=== PATIENT | female | born 1980 | race Caucasian/White ===

== ENCOUNTER 2023-07-05 07:16 | Outpatient (OUT) | payer OTHER, SELFPAY ==
--- NOTE | 2023-07-05 07:27 | MM_ITS ---
Patient Name: JULIAN WELLINGTON MR#: [id number] : 1980 Exam Date: 07/05/2023 Ordering Doctor: DR RAEANN CHOUDHURY RADIOLOGY REPORT PROCEDURE: MM TOMOSYNTHESIS SCREENING BI COMPARISON: MG MAMM DX 3D RT CAD, 06/10/2022. MG MAMM RT DIAG FU, 09/09/2021. MG MAMM SCREEN 3D BETTE CAD, 08/22/2021. MG MAMM SCREEN BETTE W CAD, 02/07/2014. INDICATIONS: Screening Calculator Name NCI Breast Cancer Risk Assessment Tool 5 Year Breast Cancer Risk 0.60% Lifetime Breast Cancer Risk 8.00% Personal Breast Cancer No Personal Ovarian Cancer No Treatments None Family Cancers Grandmother-paternal with breast cancer at age ~66; Grandfather-paternal with stomach cancer at age ~80; Grandmother-maternal with spine cancer at age ~72. LOCATION: [facility] BREAST COMPOSITION: Heterogeneously dense,which may obscure small masses. FINDINGS: DIAGNOSTIC CATEGORY 2--BENIGN FINDING: RIGHT BREAST: No significant suspicious finding. Scattered benign-appearing lymph nodes are present. No significant change has occurred. LEFT BREAST: No significant suspicious finding. Scattered benign-appearing lymph nodes are present. No significant change has occurred. RECOMMENDATIONS: ROUTINE MAMMOGRAM AND CLINICAL EVALUATION IN 12 MONTHS. PLEASE NOTE: A NORMAL MAMMOGRAM DOES NOT EXCLUDE THE POSSIBILITY OF BREAST CANCER. A CLINICALLY SUSPICIOUS PALPABLE LUMP SHOULD BE BIOPSIED. Dictated by: Anders Todd M.D. on 07/07/2023 at 10:49 Approved by: Anders Todd M.D. on 07/07/2023 at 14:48
== END 2023-07-05 07:17 | disposition home or self-care (01) ==
LOC: MAMMO 07:19
PROVIDERS: PCP Family Medicine; Visit Provider Family Medicine
DX: Z12.31 Encounter for screening mammogram for malignant neoplasm of breast (principal); Z80.3 Family history of malignant neoplasm of breast; Z80.0 Family history of malignant neoplasm of digestive organs; Z80.8 Family history of malignant neoplasm of other organs or systems
CPT/HCPCS: 77063; 77067

== ENCOUNTER 2024-07-27 16:20 | Outpatient (OUT) | payer OTHER, SELFPAY ==
--- NOTE | 2024-07-27 | MM_ITS ---
Patient Name: JULIAN CONTRERAS MR#: [id number] : 1980 Exam Date: 07/27/2024 Ordering Doctor: DR. TOÑO CHOUDHURY M.D. RADIOLOGY REPORT PROCEDURE: MM TOMOSYNTHESIS SCREENING BI COMPARISON: MM TOMOSYNTHESIS SCREENING BI, 07/05/2023. MG MAMM DX 3D RT CAD, 06/10/2022. INDICATIONS: screening Calculator Name NCI Breast Cancer Risk Assessment Tool 5 Year Breast Cancer Risk 0.70% Lifetime Breast Cancer Risk 7.90% Personal Breast Cancer No Personal Ovarian Cancer No Treatments None Family Cancers Grandmother-paternal with breast cancer at age ~66; Grandfather-paternal with stomach cancer at age ~80; Grandmother-maternal with spine cancer at age ~72. LOCATION: [facility] [place] BREAST COMPOSITION: The breasts are heterogeneously dense,which may obscure small masses. FINDINGS: DIAGNOSTIC CATEGORY 0--INCOMPLETE: NEED ADDITIONAL IMAGING EVALUATION. RIGHT BREAST: No significant suspicious finding. LEFT BREAST: Asymmetry superior aspect of the left breast, middle depth on the MLO view only. RECOMMENDATIONS: ADDITIONAL MAMMOGRAPHIC VIEWS REQUIRED: LEFT BREAST - spot-compression/true lateral views, possible ultrasound recommended. PLEASE NOTE: A NORMAL MAMMOGRAM DOES NOT EXCLUDE THE POSSIBILITY OF BREAST CANCER. A CLINICALLY SUSPICIOUS PALPABLE LUMP SHOULD BE BIOPSIED. Dictated by: Ankit Reyes DO on 07/28/2024 at 10:41 Approved by: Ankit Reyes DO on 07/28/2024 at 10:45
--- OUTSIDE RECORDS SUMMARY | 2024-07-27 16:24 | XMS_ITS | CCD ---
Author Organization [facility] Inform ion [facility] Care Team Providers Care Life Insurance Specialist Name Role Phone Josue Andrews Primary Care Provider [phone] JUAN, DR LOVETT Admitting [facility] KARASIK, DR LOVETT Attending Unavailable KARASIK, DR LOVETT Consulting Unavailable WEST, DR BROOKE Dennis Consulting Unavailable [facility] Unavailable KARASIK, DR LOVETT Admitting Unavailable KARASIK, DR LOVETT Attending Unavailable KARASIK, DR LOVETT Consulting Unavailable HEATHERYale [facility] Unavailable KARASIK, DR LOVETT Admitting Unavailable KARASIK, DR LOVETT Attending Unavailable KARASIK, DR LOVETT Consulting Unavailable WEST, DR BROOKE Dennis Consulting Unavailable HEATHERYale [facility] Unavailable KARASIK, DR LOVETT Admitting Unavailable KARASIK, DR LOVETT Attending Unavailable KARASIK, DR LOVETT Consulting Unavailable HEATHERYale [facility] Unavailable KARASIK, DR LOVETT Admitting Unavailable KARASIK, DR LOVETT Attending Unavailable KARASIK, DR LOVETT Consulting Unavailable ZIEBER, DR ANAHI Mcallister Consulting Unavailable Kenya Cordova Unavailable DO Teto Pandey Primary Care Provider Lindy [facility] Jacnita Saleh Emergency Provider Norma Pandey MD Primary Care Provider NORMA PANDEY Primary Care Unavailable ANAHI MICHEL Attending Unavailable ANAHI MICHEL Admitting Unavailable ANAHI MICHEL Attending Unavailable NORMA PANDEY Primary Care Unavailable NORMA PANDEY Primary Care Unavailable ANAHI MICHEL Attending Unavailable NORMA PANDEY Primary Care Unavailable Norma Pandey Attending Unavailable Katherin, Norma Bermudez Admitting Unavailable Dre Pearce Attending Unavailable Dre Pearce. Attending Unavailable Katherin, Norma Bermudez Admitting Unavailable Katherin, Norma Bermudez Attending Unavailable Katherin Norma KEANE Unavailable [phone] Norma Pandey MD Primary Care Provider Unavailable Primary Care Provider Unavailabl e Bullimore, Jacinta E Attending Unavailable Bullimore, Jacinta E Admitting Unavailable Katherin, Teto M. Primary Care Unavailable Rice, Jessica L Admitting Unavailable Katherin, Teto M. Primary Care Unavailable Rice Jessica L Attending Unavailable KATHERIN, NORMA Bermudez Attending Unavailable KATHERIN, NORMA Bermudez Attending Unavailable KATHERIN, NORMA Bermudez Attending Unavailable KATHERIN, NORMA Bermudez Attending Unavailable KATHERIN, NORMA Bermudez Attending Unavailable KATHERIN, NORMA Bermudez Attending Unavailable KATHERIN, NORMA Bermudez Attending Unavailable KATHERIN, NORMA Bermudez Attending Unavailable KATHERIN, NORMA Bermudez Attending Unavailable Allergies Allergy Classification Reported Allergen(s) Allergy Type Date of Onset Reaction(s) Facility (1 source) Sulfonamides (Antibiotic) Propensity to adverse reactions to drug 0 [facility] (1 source) Sulfonamides (Antibiotic) Drug allergy (disorder) [facility] (5 sources) Sulfur/Sulfade Propensity to adverse reactions [employer] Other (20 sources) Sulfonamides (Antibiotic); Translations: [SULFA (SULFONAMIDE ANTIBIOTICS)] Drug Allergy 9 [facility] (1 source) Sulfonamides (Antibiotic); Translations: [sulfa drugs] Propensity to adverse reactions (disorder) [facility] (1 source) Sulfonamides (Antibiotic) Drug allergy (disorder) 4 [facility] Medications Current Medications Medication Drug Class(es) Dates Sig (Normalized) Sig (Original) acetaminophen 325 mg / oxyCODONE hydrochloride 5 mg oral tablet (2 sources) Opioid Agonist Start: 08-30-2023 End: 09-06-2023 take 1 tablet by mouth every six hours as needed for pain oxyCODONE-acetam inophen (PERCOCET) 5-325 mg tablet Indications: Gallstones Take 1 tablet by mouth every 6 hours as needed for pain for up to 7 days. 15 tablet 0 08/30/2023 09/06/2023 Active Comment on above: Take 1 tablet by agustin th every 6 hours as needed for pain for up to 7 days. ALPRAZolam 1 mg oral tablet (20 sources) Benzodiazepine Start: 07-22-2023 End: 06-08-2024 take 1 tablet by mouth in the morning ALPRAZolam (Xanax) 1 MG tablet Indications: Panic attacks (CMS/HCC) , Anxiety Take 1 tablet (1 mg) by mouth in the morning and 1 tablet (1 mg) before bedtime. 60 tablet 06/08/2024 Active End: 08-25-2023 take 1 tablet by mouth every twenty-four hours as needed ALPRAZolam (XANAX) 0.5 mg tablet Take 0.5 mg by mouth at bedtime as needed. 0 08/25/2023 Discontinued (Course of therapy completed) Xanax 1 MG 1 tab let Orally at night Active Comment on above: TAKE 1 TABLET (1 MG) BY MOUTH IN THE MORNING AND 1 TABLET (1 MG) BEFORE BEDTIME. Take 0.5 mg by mouth at bedtime as needed. amoxicillin 875 mg / clavulanate 125 mg oral tablet (3 sources) Penicillin-class Antibacterial Start: End: take 1 tablet by mouth in the morning amoxicillin-clavu lanate (Augmentin) 875-125 MG tablet Indications: Sinus pressure Take 1 tablet (875 mg) by mouth in the morning and 1 tablet (875 mg) before bedtime. Do all this for 10 days. 20 tablet 07/27/2024 08/06/2024 Active Start: 05-05-2024 take 1 tablet by agustin th twice daily at mealtime amoxicillin-pot clavulanate (Augmentin) 875-125 mg tablet Indications: Acute cystitis with hematuria Take 1 tablet by mouth twice daily x7 days. Take with food 14 tablet 05/05/2024 Active 24 hr buPROPion hydrochloride 150 mg extended release oral tablet (5 sources) Aminoketone Start: 08-22-2023 take 150 mg by mouth once daily Bupropion Hcl Active 150 MG PO Daily August 22, 2023 12:00am Start: 08-03-2023 take 1 tablet by agustin th every hour buPROPion XL (WELLBUTRIN XL) 150 mg 24 hr tablet Take 1 tablet by mouth every afternoon. 0 08/03/2023 Active Comment on above: Take 1 tablet by agustin th every afternoon. busPIRone hydrochloride 15 mg oral tablet (8 sources) Start: 02-16-20 End: 04-10-20 take 1 tablet by mouth three times daily at bedtime busPIRone (Buspar) 15 MG tablet Indications: Panic attacks (CMS/HCC) TAKE 1 TABLET BY MOUTH THREE TIMES A DAY (MORNING, EVENING, BEFORE BEDTIME) 90 tablet 11 02/15/2023 04/10/2024 Discontinued Cranberry preparation (5 sources) Non-Standardized Food Allergenic Extract, Non-Standardized Plant Allergenic Extract Cranberry Active dicyclomine hydrochloride 20 mg oral tablet (20 sources) Anticholinergic Start: 08-22-19 End: 04-11-20 take 1 tablet by mouth four times daily as needed for pain dicyclomine (Bentyl) 20 MG tablet Indications: Irritable bowel syndrome with diarrhea Take 1 tablet (20 mg) by mouth 4 (four) times a day as needed (abd pain) 30 tablet 3 04/11/2024 Active Start: 08-22-2023 End: 08-22-2023 dicyclomine (Bentyl) 20 MG t ablet if needed 08/22/2023 Active take 1 tablet by agustin th every eight hours Dicyclomine HCl 20 MG 1 tablet Orally Three times a day Not-Taking Comment on above: as directed. doxycycline hyclate 100 mg oral capsule (12 sources) Tetracycline-class Drug Start: 4 doxycycline (Vibramycin) 100 MG capsule Indications: Acne vulgaris Take 1 capsule (100 mg) by mouth Daily Take with at least 8 ounces (large glass) of water, do not lie down for 30 minutes after 30 capsule 11 04/11/2024 Active famotidine 40 mg oral tablet (19 sources) Histamine-2 Receptor Antagonist Start: 5 End: 6 take 1 tablet by mouth at bedtime famotidine (Pepcid) 40 MG tablet Indications: Chronic GERD Take 1 tablet (40 mg) by mouth at bedtime 90 tablet 3 07/21/2024 07/21/2025 Active Start: 03-25-2024 take 1 tablet by agustin th at bedtime famotidine (Pepcid) 40 MG tablet Take 40 mg by mouth at bedtime 03/25/2024 Active Start: 08-18-2023 take 1 tablet by agustin th once daily at bedtime famotidine (PEPCID) 40 mg tablet Take 40 mg by mouth daily at bedtime. 0 08/18/2023 Active Comment on above: Take 40 mg by mouth daily at bedtime. fluconazole 150 mg oral tablet (2 sources) Azole Antifungal Start: 5 End: 5 take 1 tablet by mouth once fluconazole (Diflucan) 150 MG tablet Indications: Sinus pressure Take 1 tablet (150 mg) by mouth 1 (one) time for 1 dose 1 tablet 07/27/2024 07/27/2024 Active FLUoxetine 20 mg oral tablet (20 sources) Serotonin Reuptake Inhibitor Start: 4 End: 6 take 1 tablet by mouth once daily FLUoxetine (PROzac) 20 MG tablet Indications: Panic attacks (CMS/HCC) , Anxiety Take 1 tablet (20 mg) by mouth Daily 90 tablet 3 07/21/2024 07/21/2025 Active End: 08-25-2023 take 1 capsule by mouth once daily FLUoxetine HCl (PROZAC) 40 mg capsule Take 40 mg by mouth once daily. 0 08/25/2023 Discontinued (Course of therapy completed) take 1 tablet by agustin th every twenty-four hours FLUoxetine HCl 60 MG 1 tablet Orally Once a day Active Comment on above: Take 40 mg by mouth once daily. linaclotide 0.29 mg oral capsule (20 sources) Guanylate Cyclase-C Agonist Start: 4 End: 5 take 1 capsule by mouth before mealtime linaCLOtide (Linzess) 290 MCG capsule Indications: Irritable bowel syndrome with diarrhea Take 1 capsule (290 mcg) by mouth in the morning. Take before meals. Do not crush or chew.. 100 capsule 3 11/17/2023 11/16/2024 Active Start: 07-18-2023 take 1 capsule by mo uth once daily before breakfast LINZESS 145 mcg capsule take 1 capsule by mouth every day before breakfast 0 07/18/2023 Active Comment on above: take 1 capsule by [facility] every day before breakfast 3 ml liraglutide 6 mg/ml pen injector (6 sources) GLP-1 Receptor Agonist Start: Victoza 18 MG/3ML Week one- 0.6mg daily, Week two thereafter- 1.2mg daily Subcutaneous Daily for 30 September, Active Magnesium (5 sources) Magnesium Active Multivitamin preparation (5 sources) Multivitamin Act aureliano nitrofurantoin, macrocrystals 25 mg / nitrofurantoin, monohydrate 75 mg oral capsule (1 source) Nitrofuran Antibacterial Start: End: take 1 capsule by mouth twice daily nitrofurantoin, macrocrystal-monohydr ate, (Macrobid) 100 mg capsule Indications: Frequency of urination , Urinary tract infection without hematuria, site unspecified Take 1 capsule (100 mg) by mouth 2 times a day for 3 days. 6 capsule 03/30/2024 04/02/2024 Active pantoprazole 40 mg delayed release oral tablet (20 sources) Proton Pump Inhibitor Start: End: take 1 tablet by mouth before mealtime pantoprazole (ProtoNix) 40 MG EC tablet Indications: Chronic GERD Take 1 tablet (40 mg) by mouth in the morning. Take before meals. 90 tablet 3 01/26/2024 01/25/2025 Active Comment on above: Take 40 mg by mouth daily before breakfast. phenazopyridine hydrochloride 100 mg oral tablet (3 sources) Start: take 1 tablet by mouth three times daily after mealtime as needed phenazopyridine (Pyridium) 100 mg tablet Indications: Acute cystitis with hematuria Take 1 tablet (100mg) by mouth three times daily after meals as needed for urinary burning. Will turn urine orange/red in color 9 tablet 05/05/2024 Active Start: 03-30-2024 End: 04-01-2024 take 1 tablet by mouth three times daily as needed for muscle spasms phenazopyridine (Pyridium) 200 mg tablet Indications: Frequency of urination , Urinary tract infection without hematuria, site unspecified Take 1 tablet (200 mg) by mouth 3 times a day as needed for bladder spasms for up to 2 days. 6 tablet 03/30/2024 04/01/2024 Active Start: 12-05-2021 End: 08-25-2023 take 1 tablet by mouth every eight hours as needed phenazopyridine (PYRIDIUM, GERIDIUM) 100 mg tablet Take 1 tablet by mouth three times daily as needed (Urinary Symptoms). 6 tablet 0 12/05/2021 08/25/2023 Discontinued (Course of therapy completed) Comment on above: Take 1 tablet by agustin th three times daily as needed (Urinary Symptoms). phentermine hydrochloride 37.5 mg oral tablet (20 sources) Sympathomimetic Amine Anorectic Start: 07-28-19 take 1 tablet by mouth before mealtime phentermine (Adipex-P) 37.5 MG tablet Indications: Obesity (BMI 30.0-34.9) Take 1 tablet (37.5 mg) by mouth in the morning. Take before meals. 30 tablet 07/27/2024 Active Start: 07-27-2024 take 1 tablet by agustin th before mealtime phentermine (Adipex-P) 37.5 MG tablet Indications: Obesity (BMI 30.0-34.9) Take 1 tablet (37.5 mg) by mouth in the morning. Take before meals. 30 tablet 07/27/2024 Active Start: 12-21-2023 End: 07-27-2024 take 1 tablet by mouth before mealtime phentermine (Adipex-P) 37.5 MG tablet Indications: Morbid obesity (CMS/HCC) Take 1 tablet (37.5 mg) by mouth in the morning. Take before meals. 30 tablet 06/29/2024 07/27/2024 Discontinued (Reorder) Start: 11-19-2021 End: 08-25-2023 take 1 tablet by mouth once daily Phentermine HCl 37.5 mg tablet TAKE 1 TABLET BY MOUTH EVERY DAY FOR 30 DAYS 0 11/19/2021 08/25/2023 Discontinued (Course of therapy completed) take 1 capsule by mo uth every twenty-four hours Phentermine HCl 37.5 MG 1 capsule Orally Once a day Not-Taking Comment on above: TAKE 1 TABLET BY AGUSTIN TH EVERY DAY FOR 30 DAYS rifAXIMin 550 mg oral tablet (2 sources) Rifamycin Antibacterial Start: End: take 1 tablet by mouth in the morning, then take 1 tablet by mouth in the evening, then take 1 tablet by mouth at bedtime rifAXIMin (Xifaxan) 550 MG tablet Indications: Irritable bowel syndrome with diarrhea Take 1 tablet (550 mg) by mouth in the morning and 1 tablet (550 mg) in the evening and 1 tablet (550 mg) before bedtime. Do all this for 14 days. 42 tablet 03/06/2024 03/20/2024 Active Start: 08-22-2023 take 1 tablet by agustin th three times daily Rifaximin (Xifaxan) 550 mg tablet Active 550 MG PO Three times daily August 22, 2023 12:00am Semaglutide (1 source) Start: 08-22-2023 Semaglutide (O zempic) 0.25 mg or 0.5 mg (2 mg/3 mL) pen injector Active 0.25 MG SUBCUT every week August 22, 2023 12:00am Tirzepatide 2.5 MG/0.5ML solution auto-injector (8 sources) Tirzepatide 2.5 MG/0.5ML solution auto-injector Inject under the skin Active Tirzepatide 2.5 MG/0.5ML solution pen-injector (4 sources) Start: 01-03-2024 End: 04-10-2024 inject 5 mg by subcutaneous injection every week Tirzepatide 2.5 MG/0.5ML solution pen-injector Indications: Morbid obesity (CMS/HCC) Inject 5 mg under the skin 1 (one) time per week 0.5 mL 01/03/2024 04/10/2024 Discontinued Start: 01-03-2024 inject 5 mg by subcu taneous injection every week Tirzepatide 2.5 MG/0.5ML solution pen-injector Indications: Morbid obesity (CMS/HCC) Inject 5 mg under the skin 1 (one) time per week 0.5 mL 01/03/2024 Active Tirzepatide 2.5 MG/0.5ML solution pen-injector (4 sources) Start: 01-03-2024 inject 5 mg by subcutaneous injection every week Tirzepatide 2.5 MG/0.5ML solution pen-injector Indications: Morbid obesity (CMS/HCC) Inject 5 mg under the skin 1 (one) time per week 0.5 mL 01/03/2024 Active tretinoin 0.0001 mg/mg topical gel (12 sources) Retinoid Start: 04-11-2024 End: 04-11-2025 tretinoin (Retin-A) 0.01 % gel Indications: Acne vulgaris Apply topically at bedtime 45 g 2 04/11/2024 04/11/2025 Active valACYclovir 1000 mg oral tablet (20 sources) Herpesvirus Nucleoside Analog DNA Polymerase Inhibitor, Herpes Simplex Virus Nucleoside Analog DNA Polymerase Inhibitor, Herpes Zoster Virus Nucleoside Analog DNA Polymerase Inhibitor Start: 07-27-2024 take 1 tablet by mouth once daily valACYclovir (Valtrex) 1 g tablet Indications: Recurrent cold sores Take 1 tablet (1,000 mg) by mouth Daily 30 tablet 07/27/2024 Active Start: 07-27-2024 take 1 tablet by agustin th once daily valACYclovir (Valtrex) 1 g tablet Indications: Recurrent cold sores Take 1 tablet (1,000 mg) by mouth Daily 30 tablet 07/27/2024 Active Start: 05-27-2023 End: 07-27-2024 take 1 tablet by mouth in the morning valACYclovir (Valtrex) 1 g tablet Indications: Recurrent cold sores TAKE 1 TABLET (1000 MG) BY MOUTH IN THE MORNING 30 tablet 05/15/2024 07/27/2024 Discontinued (Reorder) valACYclovir HCl 1 GM 1 tablet Orally PRN for 30 days Active Comment on above: Take 1 tablet by agustin th every afternoon. Completed/Discontinued Medications Medication Drug Class(es) Dates Sig (Normalized) Sig (Original) 0.5 ML tirzepatide 5 MG/ML Auto-Injector [Mounjaro] (5 sources) Mounjaro 2.5 MG/0.5ML as directed Subcutaneous Not-Taking 12 hr hyoscyamine sulfate 0.375 mg extended release oral tablet (18 sources) Start: 07-27-2023 take 1 tablet by mouth three times daily before mealtime hyoscyamine SR (LEVBID) 0.375 mg 12 hr tablet TAKE 1 TABLET BY MOUTH 3 TIMES A DAY BEFORE MEALS 0 07/27/2023 Active Start: 11-14-2022 End: 04-10-2024 hyoscyamine ER (Levbid) 0.37 5 MG 12 hr tablet 11/14/2022 04/10/2024 Discontinued take 1 tablet by agustin th every twelve hours Hyoscyamine Sulfate ER 0.375 MG 1 tablet Oral bid for 30 days Active Comment on above: TAKE 1 TABLET BY AGUSTIN TH 3 TIMES A DAY BEFORE MEALS ketorolac tromethamine 10 mg oral tablet (5 sources) Nonsteroidal Anti-inflammatory Drug, Cyclooxygenase Inhibitor Start: keTORolac (TORADOL) 10 mg tablet as needed. 0 08/22/2023 Active Comment on above: as needed. lansoprazole 30 mg delayed release oral capsule (7 sources) Proton Pump Inhibitor End: take 1 capsule by mouth once daily lansoprazole (PREVACID) 30 mg capsule Take 30 mg by mouth once daily. 0 08/25/2023 Discontinued (Course of therapy completed) Comment on above: Take 30 mg by mouth once daily. ondansetron 4 mg disintegrating oral tablet (5 sources) Serotonin-3 Receptor Antagonist Start: ondansetron orally disintegrating (ZOFRAN ODT) 4 mg disintegrating tablet 0.25 mg, 0.5 mg dose 1.5 ml semaglutide 1.34 mg/ml pen injector (1 source) Start: End: OZEMPIC 0.25 mg or 0.5 mg(2 mg/1.5 mL) pen injector INJECT 0.5 MG WEEKLY 0 09/30/2021 08/25/2023 Discontinued (Course of therapy completed) Comment on above: INJECT 0.5 MG WEEKLY semaglutide (OZEMPIC) 0.25 mg or 0.5 mg (2 mg/3 mL) pen (4 sources) Start: semaglutide (OZEMPIC) 0.25 mg or 0.5 mg (2 mg/3 mL) pen every week 0 08/22/2023 Active Comment on above: every week topiramate 50 mg oral tablet (6 sources) Start: End: take 38-38.9 tablets by mouth once daily topiramate (TOPAMAX) 50 mg tablet Indications: Class 2 obesity without serious comorbidity with body mass index (BMI) of 38.0 to 38.9 in adult, unspecified obesity type , Weight disorder Take 1 tablet by mouth once daily. 90 tablet 1 10/01/2020 08/25/2023 Discontinued (Course of therapy completed) Comment on above: Take 1 tablet by agustin th once daily. Problems Active Problems Problem Classification Problem Date Documented Da te Episodic/Chronic Abdominal pain (2 sources) Right lower quadrant pain; Translations: [Unspecified abdominal pain] Onset: 4 Episodic Administrative/social admission (1 source) Persons encountering health services in other specified circumstances Episodic Anxiety disorders (20 sources) Panic disorder; Translations: [Panic disorder [episodic paroxysmal anxiety]] Onset: 0 Chronic Biliary tract disease (4 sources) Biliary calculus; Translations: [Calculus of gallbladder without cholecystitis without obstruction] Onset: 4 08-22-2023 Episodic Coma; stupor; and brain damage (7 sources) Excessive daytime sleepiness - normal night sleep; Translations: [Somnolence] Episodic Deficiency and other anemia (5 sources) Iron deficiency anemia; Translations: [Iron deficiency anemia, unspecified] Episodic Deficiency and other anemia (1 source) Iron deficiency anemia, unspecified Episodic Diabetes mellitus without complication (2 sources) Impaired fasting glucose Episodic Disorders of lipid metabolism (20 sources) Mixed hyperlipidemia; Translations: [Mixed hyperlipidemia] Onset: 3 Chronic Esophageal disorders (20 sources) Gastroesophageal reflux disease; Translations: [Gastro-esophageal reflux disease without esophagitis] Onset: 3 Chronic Genitourinary symptoms and ill-defined conditions (2 sources) Increased frequency of urination; Translations: [Frequency of micturition] 03-30-2024 Episodic Joint disorders and dislocations; trauma-related (20 sources) Derangement of left knee; Translations: [Unspecified internal derangement of left knee] Onset: 3 11-16-2022 Chronic Mood disorders (20 sources) Major depressive disorder, single episode, unspecified; Translations: [Depression] Onset: 0 Chronic Neoplasms of unspecified nature or uncertain behavior (2 sources) Neoplasm of uncertain behavior of skin; Translations: [Neoplasm of uncertain behavior of skin] Onset: 0 07-18-2019 Episodic Other gastrointestinal disorders (20 sources) Irritable bowel syndrome; Translations: [Irritable bowel syndrome without diarrhea] Onset: 3 08-22-2023 Chronic Other gastrointestinal disorders (2 sources) Irritable bowel syndrome without diarrhea Chronic Other gastrointestinal disorders (2 sources) Irritable bowel syndrome with diarrhea; Translations: [Irritable bowel syndrome with diarrhea] 03-06-2024 Chronic Other nutritional; endocrine; and metabolic disorders (1 source) Localized adiposity; Translations: [Localized adiposity] Chronic Other nutritional; endocrine; and metabolic disorders (9 sources) Obesity; Translations: [Obesity, unspecified] Onset: 0 01-01-2020 Chronic Other nutritional; endocrine; and metabolic disorders (3 sources) Obesity, unspecified Chronic Other nutritional; endocrine; and metabolic disorders (8 sources) Morbid obesity; Translations: [Morbid (severe) obesity due to excess calories] 04-10-2024 Chronic Other nutritional; endocrine; and metabolic disorders (10 sources) Body mass index 30+ - obesity; Translations: [Body mass index (BMI) 36.0-36.9, adult] 04-10-2024 Chronic Other nutritional; endocrine; and metabolic disorders (2 sources) Obese class I; Translations: [Obesity (BMI 30.0-34.9)] 07-27-2024 Chronic Other nutritional; endocrine; and metabolic disorders (1 source) Obese class II; Translations: [Obesity, Class II, BMI 35-39.9] Onset: 0 07-18-2019 Other skin disorders (1 source) Atrophic condition of skin; Translations: [Atrophic skin] Episodic Other skin disorders (5 sources) Acanthosis nigricans; Translations: [Acanthosis nigricans] Episodic Other skin disorders (3 sources) Acanthosis nigricans Episodic Other skin disorders (1 source) Acne vulgaris; Translations: [Acne vulgaris] 04-11-2024 Episodic Other upper respiratory disease (2 sources) Other specified disorders of nose and nasal sinuses; Translations: [Other disease of nasal cavity and sinuses] 07-27-2024 Episodic Unclassified (1 source) Unspecified lump in the right breast, overlapping quadrants; Translations: [UNS LUMP RT BREAST OVRLPNG QUADRNTS] Onset: 2 Urinary tract infections (2 sources) Urinary tract infectious disease; Translations: [Urinary tract infection, site not specified] 03-30-2024 Episodic Viral infection (3 sources) Recurrent herpes simplex labialis; 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 vesicular dermatitis] 05-10-2024 Episodic Past or Other Problems Problem Classification Problem Date Documented Date Episodic/Chronic Abdominal hernia (20 sources) Hiatal hernia; Translations: [Diaphragmatic hernia without obstruction or gangrene] Onset: 01-01-2020 01-01-2020 Episodic Immunizations and screening for infectious disease (1 source) Encounter for screening for human papillomavirus (HPV); Translations: [ENC SCREENING HUMAN PAPILLOMAVIRUS] Onset: 08-11-2021 Episodic Nonmalignant breast conditions (4 sources) Unspecified lump in unspecified breast; Translations: [Unspecified lump in the right breast, upper outer quadrant] Onset: 08-26-2021 Episodic Other female genital disorders (4 sources) Other specified noninflammatory disorders of vagina; Translations: [OTH SPEC NONINFLAMMATORY D/O VAGINA] Onset: 11-03-2021 Episodic Other screening for suspected conditions (not mental disorders or infectious disease) (16 sources) Other abnormal and inconclusive findings on diagnostic imaging of breast; Translations: [Encounter for screening mammogram for malignant neoplasm of breast] Onset: 08-07-2021 Episodic Residual codes; unclassified (1 source) Family history of malignant neoplasm of breast; Translations: [FAMILY HX MALIG NEOPLASM OF BREAST] Onset: 08-26-2021 Episodic Residual codes; unclassified (1 source) Family history of malignant neoplasm of digestive organs; Translations: [FAM HX MALIG NEOPLASM DIGESTIV ORGN] Onset: 08-26-2021 Episodic Unclassified (2 sources) Transaminitis R74.01 Results Test Name Value Interpretation Reference Range Facility HCG ( test) Ql (U)o n 05-05-2024 Interpretation and review of laboratory results Normal [facility] Work Phone: Preg Test, Ur Negative Negative [facility] Work Phone: [facility] Work Phone: POCT UA Automated manually r esultedon 05-05-2024 Appearance (U) Clear Clear [facility] Work Phone: Glucose Test strip (U) [Mass/Vol] Negative NEGATIVE mg/dl [facility] Work Phone: Hemoglobin Ql (U) TRACE-Intact Abnormal [facility]: )[phone] Interpretation and review of laboratory results Abnormal [facility] Work Phone: Leukocyte esterase Test strip Ql (U) MODERATE (2+) Abnormal NEGATIVE [facility] Work Phone: Nitrite Ql (U) Positive Abnormal NEGATIVE [facility] Work Phone: pH (U) 6.0 [pH] No Reference Range Established [facility] Work Phone: POC Bilirubin, Urine SMALL (1+) Abnormal NEGATIVE [facility] Work Phone: )[phone] POC Color, Urine Other Abnormal Straw, Yellow, Light-Yellow [facility] Work Phone: )[phone] Comment on above: took pyridium POC Ketones, Urine Negative NEGATIVE mg/dl [facility] Work Phone: POC Protein, Urine Negative NEGATIVE mg/dl [facility] Work Phone: )[phone] POC Specific Kellogg, Urine 1.010 1.005 - 1.035 [facility] Work Phone: )[phone] POC Urobilinogen, Urine 1.0 0.2, 1.0 EU/DL [facility] Work Phone: [phone] [facility] Work Phone: [phone] Complete Blood Count Auto Di ffon 04-23-2024 Basophils (Bld) [#/Vol] 0.0 10*3/uL Normal 0.0-0.2 [facility] Comment on above: Result Comment: PERF ORMED BY: [address] [address] PATHOLOGIST TOP WADDY KAELYN PIEDRA M.D. Performed By: #### C BC, CMP, LIPASE #### [address] Basophils/100 WBC (Bld) 0.6 % Normal . T [facility] Comment on above: Performed By: #### C BC, CMP, LIPASE #### [address] Eosinophils (Bld) [#/Vol] 0.2 10*3/uL Normal 0.0-0.45 [facility] Comment on above: Performed By: #### C BC, CMP, LIPASE #### [address] Eosinophils/100 WBC (Bld) 2.1 % Normal . [facility] Comment on above: Performed By: #### C BC, CMP, LIPASE #### [address] Erythrocyte distribution width (RBC) [Ratio] 14.8 % Normal 11.9-15.3 [facility] Comment on above: Performed By: #### C BC, CMP, LIPASE #### [address] Hematocrit (Bld) [Volume fraction] 43.2 % Normal 34.0-46.4 [facility] Comment on above: Performed By: #### C BC, CMP, LIPASE #### [address] Hemoglobin (Bld) [Mass/Vol] 14.4 g/dL Normal 11.8-15.4 [facility] Comment on above: Performed By: #### C BC, CMP, LIPASE #### [address] Lymphocytes (Bld) [#/Vol] 1.7 10*3/uL Normal 1.00-4.8 [facility] Comment on above: Performed By: #### C BC, CMP, LIPASE #### [address] Lymphocytes/100 WBC (Bld) 22.5 % Normal . [facility] Comment on above: Performed By: #### C BC, CMP, LIPASE #### [address] MCH (RBC) [Entitic mass] 27.6 pg Normal 24.7-34.3 [facility] Comment on above: Performed By: #### C BC, CMP, LIPASE #### [address] MCV (RBC) [Entitic vol] 82.7 fL Normal 80-100 [facility] Comment on above: Performed By: #### C BC, CMP, LIPASE #### [address] Mean Corpuscular HGB Conc 33.3 g/dL Normal 32.0-35.0 [facility] Comment on above: Performed By: #### C BC, CMP, LIPASE #### [address] Monocytes (Bld) [#/Vol] 0.8 10*3/uL Normal 0.0-0.8 [facility] Comment on above: Performed By: #### C BC, CMP, LIPASE #### [address] Monocytes/100 WBC (Bld) 18.26 % Normal 0.00-20.00 [facility] Comment on above: Performed By: #### C BC, CMP, LIPASE #### [address] Monocytes/100 WBC (Bld) 10.0 % Normal . [facility] Comment on above: Performed By: #### C BC, CMP, LIPASE #### [address] Neutrophils (Bld) [#/Vol] 5.0 10*3/uL Normal 1.8-7.7 [facility] Comment on above: Performed By: #### C BC, CMP, LIPASE #### [address] Neutrophils/100 WBC (Bld) 64.8 % Normal . [facility] Comment on above: Performed By: #### C BC, CMP, LIPASE #### [address] NRBC% 0.1 /100{WBC} Normal 0-0.5 [facility] Comment on above: Performed By: #### C BC, CMP, LIPASE #### [address] Platelet mean volume (Bld) [Entitic vol] 7.1 fL Normal 6.3-10.7 [facility] Comment on above: Performed By: #### C BC, CMP, LIPASE #### [address] Platelets (Bld) [#/Vol] 274 10*3/uL Normal 150-450 [facility] Comment on above: Performed By: #### C BC, CMP, LIPASE #### [address] RBC (Bld) [#/Vol] 5.22 10*6/uL High 3.60-5.00 [facility] Comment on above: Performed By: #### C BC, CMP, LIPASE #### [address] WBC (Bld) [#/Vol] 7.7 10*3/uL Normal 3.8-11.6 [facility] Comment on above: Performed By: #### C BC, CMP, LIPASE #### [address] Comprehensive Metabolic Pane rush 04-23-2024 Albumin [Mass/Vol] 4.1 g/dL Normal 3.5-5.7 [facility] Comment on above: Performed By: #### C BC, CMP, LIPASE #### [address] Albumin/Globulin [Mass ratio] 1.4 {ratio} Normal [facility] Comment on above: Performed By: #### C BC, CMP, LIPASE #### [address] ALP [Catalytic activity/Vol] 90 U/L Normal 34-104 [facility] Comment on above: Performed By: #### C BC, CMP, LIPASE #### [place] [address] ALT [Catalytic activity/Vol] 60 U/L High 7-52 [facility] Comment on above: Performed By: #### C BC, CMP, LIPASE #### [address] Anion gap [Moles/Vol] 11.7 mmol/L Normal 6.0-15.0 Th e [facility] Comment on above: Performed By: #### C BC, CMP, LIPASE #### [address] AST [Catalytic activity/Vol] 31 U/L Normal 13-39 [facility] Comment on above: Performed By: #### C BC, CMP, LIPASE #### [address] Bilirubin [Mass/Vol] 0.9 mg/dL Normal 0.3-1.0 [facility] Comment on above: Performed By: #### C BC, CMP, LIPASE #### [address] Calcium [Mass/Vol] 8.9 mg/dL Normal 8.6-10.3 [facility] Comment on above: Performed By: #### C BC, CMP, LIPASE #### [address] Chloride [Moles/Vol] 103 mmol/L Normal 98-107 [facility] Comment on above: Performed By: #### C BC, CMP, LIPASE #### [address] CO2 [Moles/Vol] 26.3 mmol/L Normal 21.0-31.0 [facility] Comment on above: Performed By: #### C BC, CMP, LIPASE #### [address] Creatinine [Mass/Vol] 0.97 mg/dL Normal 0.60-1.20 [facility] Comment on above: Performed By: #### C BC, CMP, LIPASE #### [address] Creatinine Clr Calc Pharmacy 79.36 Normal [facility] Comment on above: Performed By: #### C BC, CMP, LIPASE #### [place] [address] [place] GFR/1.73 sq M.predicted MDRD (S/P/Bld) [Vol rate/Area] mL/min/{1.73_m2} Normal [facility] Comment on above: Performed By: #### C BC, CMP, LIPASE #### [address] Globulin (S) [Mass/Vol] 3.0 g/dL Normal T [facility] Comment on above: Performed By: #### C BC, CMP, LIPASE #### [address] Glucose [Mass/Vol] 91 mg/dL Normal 70-100 [facility] Comment on above: Result Comment: Formerly named [facility] Glucose Reference Range is dependent on time and content of last meal. Glucose of more than 200 mg/dL in a nonstressed, ambulatory subject supports the diagnosis of Diabetes Mellitus. ADA recommended reference range Performed By: #### C BC, CMP, LIPASE #### [address] Potassium [Moles/Vol] 4.0 mmol/L Normal 3.5-5.1 [facility] Comment on above: Performed By: #### C BC, CMP, LIPASE #### [address] Protein [Mass/Vol] 7.1 g/dL Normal 6.4-8.9 [facility] Comment on above: Performed By: #### C BC, CMP, LIPASE #### [address] Sodium [Moles/Vol] 137 mmol/L Normal 136-145 [facility] Comment on above: Performed By: #### C BC, CMP, LIPASE #### [address] Urea nitrogen [Mass/Vol] 14 mg/dL Normal 7-25 [facility] Comment on above: Performed By: #### C BC, CMP, LIPASE #### [facility] [address] [place] [address] [place] Dipstick and Microscopicon 1 06-24-2023 Appearance (U) Clear Normal Clear [facility] Comment on above: Order Comment: Name Collection Type:: Clean-Voided Midstream Performed By: #### A DDONUAPLUS, UHCG #### [place] [address] [place] Bacteria,Urine Rare Normal None Seen [facility] Comment on above: Order Comment: Name Collection Type:: Clean-Voided Midstream Performed By: #### A DDONUAPLUS, UHCG #### [place] [address] [place] Bilirubin,Urine Negative Normal Negative [facility] Comment on above: Order Comment: Name Collection Type:: Clean-Voided Midstream Performed By: #### A DDONUAPLUS, UHCG #### [address] Color (U) Yellow Normal Yellow [facility] Comment on above: Order Comment: Name Collection Type:: Clean-Voided Midstream Performed By: #### A DDONUAPLUS, UHCG #### [place] [address] [place] Glucose Ql (U) Normal Normal Normal [facility] Comment on above: Order Comment: Name Collection Type:: Clean-Voided Midstream Performed By: #### A DDONUAPLUS, UHCG #### [place] [address] [place] Hyaline Casts,Urine None Normal 0-8 [facility] Comment on above: Order Comment: Name Collection Type:: Clean-Voided Midstream Performed By: #### A DDONUAPLUS, UHCG #### [place] [address] [place] Ketones Ql (U) Negative Normal Negative [facility] Comment on above: Order Comment: Name Collection Type:: Clean-Voided Midstream Performed By: #### A DDONUAPLUS, UHCG #### [address] Leukocyte esterase Test strip Ql (U) Negative Normal Negative [facility] Comment on above: Order Comment: Name Collection Type:: Clean-Voided Midstream Performed By: #### A DDONUAPLUS, UHCG #### [address] Mucus,Urine Rare Normal [facility] Comment on above: Order Comment: Name Collection Type:: Clean-Voided Midstream Performed By: #### A DDONUAPLUS, UHCG #### [address] Nitrite,Urine Negative Normal Negative [facility] Comment on above: Order Comment: Name Collection Type:: Clean-Voided Midstream Performed By: #### A DDONUAPLUS, UHCG #### [address] Occult Blood,Urine Negative Normal Negative [facility] Comment on above: Order Comment: Name Collection Type:: Clean-Voided Midstream Performed By: #### A DDONUAPLUS, UHCG #### [address] pH (U) 7.0 [pH] Normal 5.0-9.0 [facility] Comment on above: Order Comment: Name Collection Type:: Clean-Voided Midstream Performed By: #### A DDONUAPLUS, UHCG #### [place] [address] [place] Protein,Urine Trace High Negative [facility] Comment on above: Order Comment: Name Collection Type:: Clean-Voided Midstream Performed By: #### A DDONUAPLUS, UHCG #### [place] [address] [place] RBC,Urine 1 [HPF] Normal 0-4 [facility] Comment on above: Order Comment: Name Collection Type:: Clean-Voided Midstream Performed By: #### A DDONUAPLUS, UHCG #### [address] Specificy [place],Urine 1.023 Normal 1.001-1.030 [facility] Comment on above: Order Comment: Name Collection Type:: Clean-Voided Midstream Performed By: #### A DDONUAPLUS, UHCG #### [address] Squamous Epithelial Cell,Urine 10 [HPF] High 0-2 [facility] Comment on above: Order Comment: Name Collection Type:: Clean-Voided Midstream Performed By: #### A DDONUAPLUS, UHCG #### [address] Urobilinogen,Urine Normal Normal Normal [facility] Comment on above: Order Comment: Name Collection Type:: Clean-Voided Midstream Performed By: #### A DDONUAPLUS, UHCG #### [address] WBC,Urine 1 [HPF] Normal 0-4 [facility] Comment on above: Order Comment: Name Collection Type:: Clean-Voided Midstream Performed By: #### A DDONUAPLUS, UHCG #### [address] HCG,Urineon 04-23-2024 Beta HCG ( test) Ql (U) Negative Normal [facility] Comment on above: Order Comment: Name Collection Type:: Clean-Voided Midstream Result Comment: PERF ORMED BY: [place] [address] PATHOLOGIST TOP WADDY KAELYN PIEDRA M.D. Performed By: #### A DDONUAPLUS, CG #### [address] Lipaseon 04-23-2024 Lipase [Catalytic activity/Vol] 21.0 U/L Normal 11.0-82.0 [facility] Comment on above: Result Comment: PERF ORMED BY: [place] [address] PATHOLOGIST TOP WADDY KAELYN PIEDRA M.D. Performed By: #### C BC, CMP, LIPASE ####[id number] XR acute abdomen serieson XR acute abdomen series [facility] [address] [place] [address] [place] [address] XRay Report Signed Patient: Lisa Contreras MR#: [id number] : 1980 Acct:[id number] Age/Sex: 44 / F ADM Date: 04/23/24 Loc: ER Room: Type: [facility] ER Attending Dr: Copies to: Jessica King Do Ordering Provider: Jessica King Do Date of Service: 04/23/24 XR/XR acute abdomen series: Abdominal Pain ACUTE ABDOMEN SERIES WITH PA CHEST : CLINICAL HISTORY: Bloating upper/lower abdominal pain starting yesterday. Worsening. Constipation. COMPARISON: CT abdomen and pelvis 08/22/2023 1 view Chest: Heart normal in size. Lungs are clear. No free air. 2 view Abd: No bowel obstruction or free air. Moderate stool burden. Osseous structures demonstrate degenerative change. XR/XR acute abdomen series IMPRESSION: EVIDENCE OF CONSTIPATION. NO ACUTE PROCESS IS SEEN. Impression dictated by: Ankit Reyes Jr., D.O.04/23/2024 11:37 AM Dictation Location: [facility]-18 Transcribed By: [facility] 04/23/24 1137 Dictated By: Ankit Reyes Jr, DO 04/23/24 1136 Signed By: 04/23/24 1137 Normal [facility] POCT UA Automated manually r esultedon 03-30-2024 Appearance (U) Cloudy Abnormal Clear [facility] Work Phone: Glucose Test strip (U) [Mass/Vol] Negative NEGATIVE mg/dl [facility] Work Phone: Hemoglobin Ql (U) SMALL (1+) Abnormal NEGATIVE [facility] Work Phone: Interpretation and review of laboratory results Abnormal [facility] Work Phone: [phone] Leukocyte esterase Test strip Ql (U) MODERATE (2+) Abnormal NEGATIVE [facility] Work Phone: )[phone] Nitrite Ql (U) Negative NEGATIVE [facility] Work Phone: pH (U) 6.0 [pH] No Reference Range Established [facility] Work Phone: POC Bilirubin, Urine Negative NEGATIVE [facility] Work [facility]: POC Color, Urine Yellow Straw, Yellow, Light-Yellow [facility] Work Phone: POC Ketones, Urine TRACE Abnormal NEGATIVE mg/dl [facility] Work Phone: POC Protein, Urine Negative NEGATIVE, 30 (1+) mg/dl [facility] Work Phone: )[phone] POC Specific Kellogg, Urine 1.015 1.005 - 1.035 [facility] Work Phone: )[phone] POC Urobilinogen, Urine 0.2 0.2, 1.0 EU/DL [facility] Work Phone: )[phone] [facility] Work Phone: [phone] CBC w/ Auto Diffon 4 Basophils/100 WBC (Bld) 0.9 % Normal 0.0-2.0 [facility] Comment on above: Performed By: #### 2 [id number] #### [facility] [address] [place] [address] Basophils/Leukocytes Auto (Bld) [Pure # fraction] 0.1 E9/L Normal 0.0-0.2 [facility] Comment on above: Performed By: #### 2 [id number] #### [facility] [address] [place] [address] Eosinophils (Bld) [#/Vol] 0.2 E9/L Normal 0.0-0.5 [facility] Comment on above: Performed By: #### 2 [id number] #### [facility] [address] [place] [address] Eosinophils/100 WBC (Bld) 3.5 % Normal 0.0-8.0 [facility] Comment on above: Performed By: #### 2 [id number] #### [facility] [address] [place] [address] Erythrocyte distribution width (RBC) [Ratio] 13.4 % Normal 10.9-14.2 [facility] Comment on above: Performed By: #### 2 [id number] #### [facility] [address] [place] [address] Hematocrit (Bld) [Volume fraction] 42.3 % Normal 34.0-46.0 [facility] Comment on above: Performed By: #### 2 [id number] #### [facility] [address] [place] [address] Hemoglobin (Bld) [Mass/Vol] 14.9 g/dL Normal 12.0-16.0 [facility] Comment on above: Performed By: #### 2 [id number] #### [facility] [address] [place] [address] Lymphocytes (Bld) [#/Vol] 1.5 E9/L Normal 1.0-4.0 [facility] Comment on above: Performed By: #### 2 [id number] #### [facility] [address] [place] [address] Lymphocytes/100 WBC (Bld) 25.5 % Normal 14.0-50.0 [facility] Comment on above: Performed By: #### 2 [id number] #### [facility] [address] [place] [address] MCH (RBC) [Entitic mass] 29.3 pg Normal 27.0-34.0 [facility] Comment on above: Performed By: #### 2 [id number] #### [facility] [address] [place] [address] MCHC (RBC) [Mass/Vol] 35.3 g/dL Normal 31.4-36.0 [facility] Comment on above: Performed By: #### 2 [id number] #### [facility] [address] [place] [address] MCV (RBC) [Entitic vol] 83.0 fL Normal 80.0-100.[address] [facility] Comment on above: Performed By: #### 2 652805 #### [facility] [address] [place] [address] Monocytes (Bld) [#/Vol] 0.6 E9/L Normal 0.2-1.[address] [facility] Comment on above: Performed By: #### 2 480760 #### [facility] [address] [place] [address] Neutrophils (Bld) [#/Vol] 3.7 E9/L Normal 2.0-7.5 [facility] Comment on above: Performed By: #### 2 [id number] #### [facility] [address] [place] [address] Neutrophils/100 WBC (Bld) 60.7 % Normal 36.0-75.0 [facility] Comment on above: Performed By: #### 2 [id number] #### [facility] [address] [place] [address] Platelet 348.0 E9/L Normal 150.0-500.0 [facility] Comment on above: Performed By: #### 2 [id number] #### [facility] [address] [place] [address] Platelet mean volume (Bld) [Entitic vol] 6.9 fL Normal 6.4-10.8 [facility] Comment on above: Performed By: #### 2 [id number] #### [facility] [address] [place] [address] RBC (Bld) [#/Vol] 5.1 E12/L Normal 4.3-5.9 [facility] Comment on above: Performed By: #### 2 [id number] #### [facility] [address] [place] [address] WBC corrected for nucl RBC Auto (Bld) [#/Vol] 6.0 E9/L Normal 4.0-11.0 [facility] Comment on above: Performed By: #### 2 [id number] #### [facility] [address] [place] [address] CMPon 01-22-2024 Albumin [Mass/Vol] 4.1 g/dL Normal 3.3-5.0 [facility] Comment on above: Performed By: #### 2 [id number] #### [facility] [address] [place] [address] Albumin/Globulin (S) [Mass conc ratio] 1.4 Normal 1.1-2.2 [facility] Comment on above: Performed By: #### 2 [id number] #### [facility] [address] [place] [address] ALP [Catalytic activity/Vol] 81 Int._Unit/L Normal 21-98 [facility] Comment on above: Performed By: #### 2 [id number] #### [facility] [address] [place] [address] ALT No additional P-5'-P [Catalytic activity/Vol] 43 Int._Unit/L Normal 6-46 [facility] Comment on above: Performed By: #### 2 [id number] #### [facility] [address] [place] [address] Anion gap [Moles/Vol] 10 mmol/L Normal 6-16 [facility] Comment on above: Performed By: #### 2 [id number] #### [facility] [address] [place] [address] AST [Catalytic activity/Vol] 27 Int._Unit/L Normal 5-43 [facility] Comment on above: Performed By: #### 2 [id number] #### [facility] [address] [place] [address] Bilirubin [Mass/Vol] 0.6 mg/dL Normal 0.0-1.1 [facility] Comment on above: Performed By: #### 2 [id number] #### [facility] [address] [place] [address] Calcium [Mass/Vol] 9.1 mg/dL Normal 8.9-11.1 [facility] Comment on above: Performed By: #### 2 [id number] #### [facility] [address] [place] [address] Chloride [Moles/Vol] 103 mmol/L Normal 101-111 [facility] Comment on above: Performed By: #### 2 [id number] #### [facility] [address] [place] [address] CO2 [Moles/Vol] 28 mmol/L Normal 21-31 [facility] Comment on above: Performed By: #### 2 [id number] #### [facility] [address] [place] [address] Creatinine [Mass/Vol] 1.0 mg/dL Normal 0.5-1.3 [facility] Comment on above: Performed By: #### 2 [id number] #### [facility] [address] [place] [address] Globulin (S) [Mass/Vol] 2.9 g/dL Normal 1.4-4.[address] [facility] Comment on above: Performed By: #### 2 [id number] #### [facility] [address] [place] [address] Glucose [Mass/Vol] 101 mg/dL Normal 55-199 [facility] Comment on above: Performed By: #### 2 [id number] #### [facility] [address] [place] [address] Potassium [Moles/Vol] 4.0 mmol/L Normal 3.5-5.3 [facility] Comment on above: Performed By: #### 2 [id number] #### [facility] [address] [place] [address] Protein [Mass/Vol] 7.0 g/dL Normal 6.0-7.8 [facility] Comment on above: Performed By: #### 2 [id number] #### [facility] [address] [place] [address] Sodium [Moles/Vol] 137 mmol/L Normal 135-145 [facility] Comment on above: Performed By: #### 2 [id number] #### [facility] [address] [place] [address] Urea nitrogen [Mass/Vol] 13 mg/dL Normal 5-21 [facility] Comment on above: Performed By: #### 2 [id number] #### [facility] [address] [place] [address] Urea nitrogen/Creatinine [Mass ratio] 13 No Units Normal 10-20 [facility] Comment on above: Performed By: #### 2 [id number] #### [facility] [address] [place] [address] [facility] [place] W/ AUTO DIFFon 09-0 -2023 EOSINOPHILS/100 LEUKOCYTES:NFR:PT:BLD:Q N:AUTOMATED COUNT 3.5 % 0.0 - 8.0 % [facility] EOSINOPHILS:NCNC:PT:BLD :QN: 0.2 [facility] BASOPHILS/LEUKOCYTES:NF R.DF:PT:BLD:QN:AUTOMATE D COUNT 0.1 [facility] ERYTHROCYTE MEAN CORPUSCULAR HEMOGLOBIN CONCENTRATION:MCNC:PT:R BC:QN 35.3 [facility] ERYTHROCYTE MEAN CORPUSCULAR HEMOGLOBIN:ENTMASS:PT:R BC:QN 29.3 pg 27.0 - 34.0 pg [facility] ERYTHROCYTE MEAN CORPUSCULAR VOLUME:ENTVOL:PT:RBC:QN :AUTOMATED COUNT 83.0 fL 80.0 - 100.0 fL [facility] ERYTHROCYTES:NCNC:PT:BL D:QN:AUTOMATED COUNT 5.1 [facility] HEMOGLOBIN:MCNC:PT:BLD: QN: 14.9 [facility] LEUKOCYTES 6.0 [facility] MONOCYTES:NCNC:PT:BLD:Q N:AUTOMATED COUNT 0.6 [facility] NEUTROPHILS:NCNC:PT:BLD :QN:AUTOMATED COUNT 3.7 [facility] LYMPHOCYTES:NCNC:PT:BLD :QN: 1.5 [facility] Platelets (Bld) [#/Vol] 348.0 10*3/uL [facility] Original Ordering Provider: MD Norma HYLTON [facility] Lipid Panelon 01-22-2024 Cholesterol [Mass/Vol] 248 mg/dL High 120-200 Fi [facility] Comment on above: Performed By: #### 2 [id number] #### [facility] [address] [place] [address] Cholesterol in HDL [Mass/Vol] 48 mg/dL Invalid Interpretation Code [facility] Comment on above: Result Comment: '>= 60 LOW RISK' '<= 40 HIGH RISK' Performed By: #### 2 [id number] #### [facility] [address] [place] [address] Cholesterol in LDL [Mass/Vol] 180 mg/dL High <=129 [facility] Comment on above: Performed By: #### 2 [id number] #### [facility] [address] [place] [address] Cholesterol in VLDL [Mass/Vol] 40 mg/dL Normal 7-40 [facility] Comment on above: Performed By: #### 2 [id number] #### [facility] [address] [place] [address] Triglyceride [Mass/Vol] 198 mg/dL High <=[address] [facility] Comment on above: Performed By: #### 2 [id number] #### [facility] [address] [place] [address] TSH With T4fr Reflexon 01-21 TSH Qn 1.15 m[IU]/L Normal 0.34-5.60 [facility] Comment on above: Performed By: #### 1 [id number] #### [facility] [address] [place] [address] eGFRon 01-22-2024 eGFR 71 mL/min/1.73 m2 Normal >=59 [facility] Comment on above: Order Comment: Order added by Discern Expert. Performed By: #### 1 [id number] #### [facility] [address] [place] [address] CNCOon 09-02-2023 CNCO Letter Text Normal [facility] CNOVon 09-02-2023 CNOV Office Visit (GNSWAD) MAYTE POTTS ([id number]) 1980 F Date Time Provider Department 09/02/23 3:00 PM ANAHI MICHEL GNSWAD During your visit today, we recorded the following information about you: Anahi Michel MD 09/02/2023 3:48 PM Signed PROGRESS NOTES PATIENT NAME: Mayte Potts Assessment ASSESSMENT AND PLAN The patient is a 43-year-old female status post a laparoscopic cholecystectomy earlier this week. I reassured her that the pain and appearance her incisions are pretty normal after her very recent surgery. I stated that she should be beginning to feel much better in the next couple of days. Follow-up will be as previously scheduled in about 2 weeks. I recommend that she call me sooner if any issues or problems arise. She is agreeable to this plan. SUBJECTIVE CHIEF COMPLAINT: Patient presents with: Post Op: Cholecystectomy 08/30/2023 INTERVAL HISTORY OF PRESENT ILLNESS: The patient is a 43-year-old female status post a recent cholecystectomy actually performed earlier this week. She states that she had some pain up near the epigastric trocar site. She was concerned about possible infection given the pain and she thought that the incision may be slightly open. She presents today for evaluation. HISTORIES: PAST MEDICAL HISTORY Diagnosis Date Anxiety 01/01/2020 Class 2 obesity without serious comorbidity with body mass index (BMI) of 38.0 to 38.9 in adult 01/01/2020 Depression 01/01/2020 PAST SURGICAL HISTORY Procedure Laterality Date BREAST REDUCTION COLONOSCOPY SCREENING 12/2022 Dr. Olivera EGD W/O [facility] SPEC VARICIES INJ 02/2023 Dr. Olivera HYSTERECTOMY HX L'SCOPE CHOLECYSTECTOMY 08/30/2023 ALLERGIES: Sulfa (Sulfonamide Antibiotics) MEDICATIONS: Current Outpatient Medications Medication Sig oxyCODONE-acetaminop hen (PERCOCET) 5-325 mg tablet Take 1 tablet by mouth every 6 hours as needed for pain for up to 7 days. semaglutide (OZEMPIC) 0.25 mg or 0.5 mg (2 mg/3 mL) pen every week ALPRAZolam (XANAX) 1 mg tablet TAKE 1 TABLET (1 MG) BY MOUTH IN THE MORNING AND 1 TABLET (1 MG) BEFORE BEDTIME. valACYclovir (VALTREX) 1 gram tablet Take 1 tablet by mouth every afternoon. pantoprazole DR (PROTONIX) 40 mg tablet Take 40 mg by mouth daily before breakfast. ondansetron orally disintegrating (ZOFRAN ODT) 4 mg disintegrating tablet LINZESS 145 mcg capsule take 1 capsule by mouth every day before breakfast keTORolac (TORADOL) 10 mg tablet as needed. hyoscyamine SR (LEVBID) 0.375 mg 12 hr tablet TAKE 1 TABLET BY MOUTH 3 TIMES A DAY BEFORE MEALS famotidine (PEPCID) 40 mg tablet Take 40 mg by mouth daily at bedtime. dicyclomine (BENTYL) 20 mg tablet as directed. buPROPion XL (WELLBUTRIN XL) 150 mg 24 hr tablet Take 1 tablet by mouth every afternoon. No current facility-administere d medications for this visit. FAMILY HISTORY Problem Relation Age of Onset Obesity Paternal Grandmother Obesity Paternal Grandfather Social History Tobacco Use Smoking status: Never Smokeless tobacco: Never Vaping Use Vaping Use: Never used Substance Use Topics Alcohol use: Never Drug use: Never OBJECTIVE PHYSICAL EXAM: There were no vitals taken for this visit. GENERAL: Alert, no distress, cooperative ABDOMEN: Incisions appear pretty typical for 3 days after surgery. I do not see any open incisions. No signs of erythema or infection. She has some mild typical bruising and soreness. DATA: Diagnostic tests reviewed for today's visit: No new labs Anahi Michel MD Allergies As of Date: 09/02/2023 Noted Allergy Reaction SULFA (SULFONAMIDE ANTIBIOTICS) 10/11/2018 4 - Hives Date Reviewed: 09/02/2023 Reviewed by: Anahi Michel MD - Fully Assessed Reason for Visit: Post Op [174] Cmt: Cholecystectomy 08/30/2023 Primary Visit Diagnosis:Gallstones [K80.20] Prescriptions as of 09/02/2023 - oxyCODONE-acetaminop hen (PERCOCET) 5-325 mg tablet Take 1 tablet by mouth every 6 hours as needed for pain for up to 7 days. - semaglutide (OZEMPIC) 0.25 mg or 0.5 mg (2 mg/3 mL) pen every week - ALPRAZolam (XANAX) 1 mg tablet TAKE 1 TABLET (1 MG) BY MOUTH IN THE MORNING AND 1 TABLET (1 MG) BEFORE BEDTIME. - valACYclovir (VALTREX) 1 gram tablet Take 1 tablet by mouth every afternoon. - pantoprazole DR (PROTONIX) 40 mg tablet Take 40 mg by mouth daily before breakfast. - ondansetron orally disintegrating (ZOFRAN ODT) 4 mg disintegrating tablet - LINZESS 145 mcg capsule take 1 capsule by mouth every day before breakfast - keTORolac (TORADOL) 10 mg tablet as needed. - hyoscyamine SR (LEVBID) 0.375 mg 12 hr tablet TAKE 1 TABLET BY MOUTH 3 TIMES A DAY BEFORE MEALS - famotidine (PEPCID) 40 mg tablet Take 40 mg by mouth daily at bedtime. - dicyclomine (BENTYL) 20 mg tablet as directed. - buPROPion XL (WELLBUTRIN XL) 150 mg 24 hr (more content not included)... [facility] MAYTE POTTS ([id number]) 1980 F Date Time Provider Department 09/02/23 ANAHI MICHEL During your visit today, we recorded the following information about you: Sushma Cr 09/02/2023 9:23 AM Signed Patient called and wants Dr. Michel to look at her stitches? I though maybe you could access the situation. Tiff Bolaños MA 09/02/2023 9:29 AM Signed Sent [facility] re: patient concern Myosky, Molly, RN 09/02/2023 9:39 AM Signed Spoke with patient and scheduled her an appointment to see Dr. Michel today in [place]. Allergies As of Date: 09/02/2023 Noted Allergy Reaction SULFA (SULFONAMIDE ANTIBIOTICS) 10/11/2018 4 - Hives Date Reviewed: 08/30/2023 Reviewed by: Nallely Dow RN - Fully Assessed Prescriptions as of 09/02/2023 - oxyCODONE-acetaminop hen (PERCOCET) 5-325 mg tablet Take 1 tablet by mouth every 6 hours as needed for pain for up to 7 days. - semaglutide (OZEMPIC) 0.25 mg or 0.5 mg (2 mg/3 mL) pen every week - ALPRAZolam (XANAX) 1 mg tablet TAKE 1 TABLET (1 MG) BY MOUTH IN THE MORNING AND 1 TABLET (1 MG) BEFORE BEDTIME. - valACYclovir (VALTREX) 1 gram tablet Take 1 tablet by mouth every afternoon. - pantoprazole DR (PROTONIX) 40 mg tablet Take 40 mg by mouth daily before breakfast. - ondansetron orally disintegrating (ZOFRAN ODT) 4 mg disintegrating tablet - LINZESS 145 mcg capsule take 1 capsule by mouth every day before breakfast - keTORolac (TORADOL) 10 mg tablet as needed. - hyoscyamine SR (LEVBID) 0.375 mg 12 hr tablet TAKE 1 TABLET BY MOUTH 3 TIMES A DAY BEFORE MEALS - famotidine (PEPCID) 40 mg tablet Take 40 mg by mouth daily at bedtime. - dicyclomine (BENTYL) 20 mg tablet as directed. - buPROPion XL (WELLBUTRIN XL) 150 mg 24 hr tablet Take 1 tablet by mouth every afternoon. Problem List As Of Date 09/02/2023 Noted Resolved Class 2 obesity without serious comorbidity wit*01/01/2020 Anxiety [F41.9] 01/01/2020 Depression [F32.A] 01/01/2020 Hiatal hernia [K44.9] 01/01/2020 Encounter Status:Closed by MOLLY MARTINEZ on 09/02/23 Normal [facility] ANES POSTPROC EVALon 024 ANES POSTPROC EVAL HNO ID: [id number] Author: MANNY BLISS MD Service: Anesthesiology Author Type: Anesthesiologist Type: Anesthesia Postprocedure Evaluation Filed: 08/30/2023 12:45 Note Text: POST ANESTHESIA EVALUATION NOTE : 1980 Procedure Summary Date: 08/30/23 Room / Location: [facility] / [place] Anesthesia Start: 932 Anesthesia Stop: 1049 Procedure: LAPAROSCOPIC CHOLECYSTECTOMY WITH GRAMS (Abdomen) Diagnosis: Gallstones (Gallstones [K80.20]) Surgeons: Anahi Michel MD Responsible Provider: Manny Bliss MD Anesthesia Type: general ASA Status: 2 Anesthesia Type: general Airway Type: ETT Last Vitals Vitals Value Taken Time BP 135/81 08/30/23 1153 Temp 36.5 ?C (97.7 ?F) 08/30/23 1153 Pulse 59 08/30/23 1153 Resp 15 08/30/23 1153 SpO2 98 % 08/30/23 1153 Post Anesthesia Patient Status Patient Evaluation: PACU. PACU/ICU Patient Condition: stable. Anticipated Disposition: phase 2 then home. Neurological Status: aware and responsive. Pulmonary Status: breathing comfortably on room air Airway Control: returned to baseline unsupported. Cardiovascular Status: stable. Pain Management: clinically adequate - multimodal analgesia pain management approach Postoperative Hydration: acceptable. Intraoperative Events: no significant anesthesia events Post Operative Nausea/Vomiting Status: no significant post operative nausea or vomiting Recommendation: continue current plan of care. Anesthesia Observations No Documentation SIGNATURE: Manny Bliss MD PATIENT NAME: Mayte Potts DATE: August 30, 2023 TIME: 12:45 PM CSN: [id number] [facility] ANES PRE-OPon 08-30-2023 ANES PRE-OP HNO ID: [id number] Author: MANNY BLISS MD Service: Anesthesiology Author Type: Anesthesiologist Type: Anesthesia Preprocedure Evaluation Filed: 08/30/2023 08:14 Note Text: ANESTHESIOLOGY DAY OF SURGERY NOTE : 1980 Procedure Information Date/Time: 08/30/23 0906 Procedure: LAPAROSCOPIC CHOLECYSTECTOMY WITH GRAMS (Abdomen) Location: [place] [address] / [place] Surgeons: Anahi Michel MD Estimated body mass index is 37.38 kg/m? as calculated from the following: Height as of 08/25/23: 160 cm (5' 3 ). Weight as of 08/25/23: 95.7 kg (211 lb). Most recent hematocrit and potassium results: Hematocrit 42.3 10/11/2018 Potassium 4.1 08/27/2020 Relevant Problems GI (+) Hiatal hernia I - PHYSICAL EVALUATION AIRWAY Patient intubated: No. Tracheostomy tube not present Mallampati: II. TM distance: >3 FB. Neck ROM: full ROM without neurological symptoms. Mouth opening: adequate. Short neck: no. Thick neck: no DENTAL Dental findings: teeth intact. Additional exam findings: no II - ANESTHESIA PLAN ASA Score: 2 Anesthetic Plan: general Airway type: ETT The patient is not a current smoker. NPO Status: adequate Anesthetic plan additional comments: Last ozempic dose Wednesday will proceed with rapid sequence precaustions pts agrees to risk . Beta Inocencia Monitoring Plan Monitoring plan: Standard ASA. Post Procedure Analgesic Plan Postoperative analgesic plan: parenteral or oral opioids and multimodal analgesia. Informed Consent Anesthetic risks, benefits, alternatives, personnel and consent discussed: yes. Patient / Responsible Republican agrees to proceed: yes Patient / Surrogate agrees to blood products: yes DNR status not reviewed with patient and/or family prior to surgery. Significant changes in the patient condition since the History and Physical, not otherwise documented in primary service progress note: no. Potential Anesthesia issues that may suggest increased risk of complications or contraindication to planned procedure: none. No vitals data found for the desired time range. Facility-Administere d Medications as of 08/30/2023 Medication Dose Route Frequency - metoclopramide HCl 10 mg injection (REGLAN) 10 mg INTRAVENOUS ONCE - famotidine 20 mg injection (PEPCID) 20 mg INTRAVENOUS ONCE Outpatient Medications as of 08/30/2023 Medication Sig - semaglutide (OZEMPIC) 0.25 mg or 0.5 mg (2 mg/3 mL) pen every week - ALPRAZolam (XANAX) 1 mg tablet TAKE 1 TABLET (1 MG) BY MOUTH IN THE MORNING AND 1 TABLET (1 MG) BEFORE BEDTIME. - valACYclovir (VALTREX) 1 gram tablet Take 1 tablet by mouth every afternoon. - pantoprazole DR (PROTONIX) 40 mg tablet Take 40 mg by mouth daily before breakfast. - ondansetron orally disintegrating (ZOFRAN ODT) 4 mg disintegrating tablet - LINZESS 145 mcg capsule take 1 capsule by mouth every day before breakfast - keTORolac (TORADOL) 10 mg tablet as needed. - hyoscyamine SR (LEVBID) 0.375 mg 12 hr tablet TAKE 1 TABLET BY MOUTH 3 TIMES A DAY BEFORE MEALS - famotidine (PEPCID) 40 mg tablet Take 40 mg by mouth daily at bedtime. - dicyclomine (BENTYL) 20 mg tablet as directed. - buPROPion XL (WELLBUTRIN XL) 150 mg 24 hr tablet Take 1 tablet by mouth every afternoon. I have interviewed and examined the patient. I have reviewed the medical record and/or the pre-anesthesia evaluation, pertinent labs, and test results. This contains updated information obtained within 48 hours of Surgery/Procedure. SIGNATURE: Manny Bliss MD PATIENT NAME: Mayte Potts DATE: August 30, 2023 TIME: 8:13 AM CSN: [id number] [facility] BRIEF OP NOTon 08-30-2023 BRIEF OP NOT HNO ID: [id number] Author: ANAHI MICHEL MD Service: General Surgery Author Type: Physician Type: Brief Op Note Filed: 08/30/2023 10:58 Note Text: BRIEF OPERATIVE / PROCEDURE NOTE LOG ID: [id number] SURGERY/PROCEDURE DATE: 08/30/2023 INCISION/PROCEDURE START TIME: 9:52 AM INCISION CLOSE/PROCEDURE END TIME: 10:32 AM SURGEON(S)/PROCEDURA LIST(S) AND SCIENCE PROFESSOR(S): Surgeon(s) and Role: * Anahi Michel MD - Primary Physician Director Of Compliance: Yamini Kelly PA-C; Oralia Maldonado PA-C SURGERY/PROCEDURE(S) : laparoscopic cholecystectomy with cholangiograms ANESTHESIA: General FINDINGS: Intraoperative cholangiogram: Fluoro time: 10.5 sec Air kerma: 8.48 mGy Patient position: Supine Number of images saved: 1 Contrast used: Full strength isovue contrast was injected by the surgeon Findings: Contrast flowed through the cystic duct and opacified a normal caliber common bile duct. The duodenum filled rapidly without any filling defects. The bilateral intrahepatic bile ducts were well visualized. Impression: Normal cholangiogram Read by: Anahi Michel MD ESTIMATED BLOOD LOSS: 5 mls SPECIMENS: gallbladder COMPLICATIONS: None CLOSURE TECHNIQUE: Primary PRE-OP/PRE-PROCEDURE DIAGNOSIS: symptomatic cholelithiasis POST-OP/POST-PROCEDU RE DIAGNOSIS: Same as Preop SIGNATURE: Anahi Michel MD PATIENT NAME: Mayte Potts DATE: August 30, 2023 TIME: 10:56 AM [facility] HISTORY PHYSICALon HISTORY PHYSICAL HNO ID: [id number] Author: ANAHI MICHEL MD Service: General Surgery Author Type: Physician Type: H&P Filed: 08/30/2023 09:33 Note Text: UPDATED HISTORY AND PHYSICAL EXAMINATION SERVICE DATE: 08/30/2023 SERVICE TIME: 9:33 AM PHYSICAL EXAM MUST BE COMPLETED ON ADMISSION The History and Physical (completed in the past 30 days) has been reviewed and the patient has been examined. The contents accurately reflect the patient's condition with the following additions or revisions since the HANDP was completed. Examination indicates no changes. This HANDP can be found in the Electronic Medical Record . SIGNATURE: Anahi Michel MD PATIENT NAME: Mayte Potts DATE: August 30, 2023 TIME: 9:33 AM [facility] NURSING PROGon 08-30-2023 NURSING PROG HNO ID: [id number] Author: ALESIA DEXTER RN Service: Nursing Author Type: Registered Nurse Type: Nursing Progress Note Filed: 08/30/2023 08:23 Note Text: Other: at bedside talking with pt regarding her taking Ozepmic in Wednesday08-28-23 as she was not told to stop the medication prior to OR. 0805 to talk with regarding canceling the case today. 0810 Janell at bedside to inform pt that they will proceed with the case today. 0815 pt to bathroom to void and remove earings [facility] OPERATIVE NOon 08-30-2023 OPERATIVE NO HNO ID: [id number] Author: ANAHI MICHEL MD Service: General Surgery Author Type: Physician Type: Operative Report Filed: 08/31/2023 12:11 Note Text: [facility] - Operative Report MAYTE POTTS : 1980 AGE: 43. SEX: F PATIENT TYPE: A [facility]: [facility] LOCATION: [facility] ATTENDING PHYSICIAN: Anahi Michel M.D. CSN NUMBER: [id number] DATE OF SURGERY/PROCEDURE: 08/30/2023 INCISION/PROCEDURE START TIME: 9:52 a.m. INCISION CLOSE/PROCEDURE END TIME: 10:32 a.m. PREOPERATIVE DIAGNOSIS: Symptomatic cholelithiasis. POSTOPERATIVE DIAGNOSIS: Symptomatic cholelithiasis. SURGEON: Anahi Michel M.D. SCIENCE PROFESSOR: ZOE Mcmullen and Oralia Murphy No resident was available to assist with surgery, so PAs were utilized as 1st certified physician assistant. Their role included gallbladder retraction, holding the camera, and assistance with closure. SURGERY/PROCEDURE: Laparoscopic cholecystectomy with intraoperative cholangiograms. ANESTHESIA: General. FINDINGS: Normal cholangiograms. ESTIMATED BLOOD LOSS: About 5 mL or less. SPECIMENS: Gallbladder. COMPLICATIONS: None. PATIENT HISTORY: Patient is a 43-year-old female with right upper quadrant pain and gallstones. I recommended a laparoscopic cholecystectomy as treatment. We discussed details of the planned procedure including the risks, benefits, and alternatives, and she wished to proceed. DESCRIPTION OF PROCEDURE: She was brought to the operating today following informed consent. She was placed supine on the operative table with arms outstretched on armboards. General anesthesia was induced. Once adequately sedated, the abdomen was then prepped and draped in the usual sterile manner. A 5 mm incision was made just below the umbilicus, in which a 5 mm trocar was placed optically. This was placed without incident. Once in place, the abdomen was then fully insufflated with CO2 gas. A 5 mm 0-degree scope was inserted. There were no signs of bowel or vascular injury. Next, two 5 mm trocars were placed under direct visualization in the right upper quadrant. A 10 mm trocar was placed in the epigastric region. The gallbladder was identified. It was reflected up and over the liver, did not appear to be appreciably thickened. There were some filmy adhesions to the undersurface of the infundibulum, but these were swept down easily with Kittner and slight electrocautery. The peritoneum on either side of the gallbladder was then incised using the hook electrocautery connected to the J-hook. This mobilized the gallbladder so that we could best visualize the infundibulum. The cystic duct and cystic artery were both dissected out circumferentially and there was small amount of bleeding from the cystic artery. I clipped it, but did not transect it immediately. I then dissected the lower portion of the gallbladder and infundibulum off the cystic plate. There were no additional structures posteriorly given us safe critical view of safety. After this, I transected the artery and then better dissected out the cystic duct. I placed a 10 mm clip on the gallbladder side of the cystic duct closest to the gallbladder. I made a very tiny ductotomy as approximately as I could to the clip. I then inserted a cholangiogram catheter and cholangiograms were then performed using Omnipaque. This showed a good opacification of the biliary tree without any obvious filling defects. Three 10 mm clips were placed across the cystic duct stump. This was then transected. The gallbladder was then bovied off the undersurface of the liver and once free, it was placed into an Endobag and brought out through the 10 mm trocar site. I did need to extend the incision a bit to get the gallbladder from the abdomen. The liver bed was re-examined. A couple of layers were cauterized to ensure excellent hemostasis, which there was. The fascia at the 10 mm trocar site was then closed using 0 PDS with the aid of the towing pilot guide. Two separate sutures were placed closing the fascia nicely. The remaining trocars were opened up. Insufflation was allowed to escape. Local anesthetic was injected into each of the incisions. The incisions were then closed with 5-0 Vicryl. Skin glue was applied as dressing. She was awakened from anesthesia and taken to the PACU in good condition. Anahi Michel M.D. SAW:[id number] /[id number] [facility] SURGICAL PATHOLOGYon 024 CASE REPORT [facility] Comment on above: Order Comment: Speci men Type: TISSUE SPECIMEN Ordering Facility: [facility] Address: [address] [place], [place] [address] [address] Result Comment: Surg ica Pathology Report Case: [id number] Authorizing Provider: Anahi Michel MD Collected: 08/30/2023 10:15 AM Ordering Location: [facility] Surgery Received: 08/30/2023 12:32 PM Pathologist: Rosalinda Plata MD Specimen: Gallbladder Performed By: #### S #### [facility] CLIA [id number] [address] [place] [address] [place] CLINICAL HISTORY Normal [facility] Comment on above: Order Comment: Speci men Type: TISSUE SPECIMEN Ordering Facility: [facility] Address: [address] [place] [address] Result Comment: Pre- op diagnosis: Gallstones [K80.20] Performed By: #### S #### [facility] CLIA [id number] [address] [place] [address] OF [facility] FINAL DIAGNOSIS Normal [facility] Comment on above: Order Comment: Speci men Type: TISSUE SPECIMEN Ordering Facility: [facility] Address: [address] [place] [address] Result Comment: Gall bladder, cholecystectomy: - Chronic cholecystitis with cholesterolosis and cholelithiasis. Performed By: #### S #### [facility] CLIA [id number] [address] [place] [address] OF [place] FINAL PERFORMING LAB Normal [facility] Comment on above: Order Comment: Speci men Type: TISSUE SPECIMEN Ordering Facility: [facility] Address: [address] [place] [address] Result Comment: Diag nostic interpretation performed at [facility], [address] [place] [address] CLIA# [id number] Marketing And Outreach Coordinator: Bladimir Jones M.D. Performed By: #### S #### [facility] CLIA [id number] [address] [place] [address] [place] GROSS DESCRIPTION A. Gallbladder Normal [facility] Comment on above: Order Comment: Speci men Type: TISSUE SPECIMEN Ordering Facility: [facility] Address: [address] [place] [address] Result Comment: Rece ived in formalin labeled gallbladder is a 8.5 x 4.5 x 3.5 cm cholecystectomy specimen. The serosal surface is green-xiao, smooth and glistening with the exception of the cauterized hepatic bed. Opening of the gallbladder reveals green-yellow, viscous bile and a single dark green, hard ovoid calculi measuring 1.7 cm in greatest dimension. The gallbladder mucosa is green-yellow and velvety with an average wall thickness of 0.2 cm. No polyps or mass lesions are identified. The cystic duct margin (en face) and commissary representative sections of the gallbladder wall are submitted in A1. KSZ August 30, 2023 4:32 PM [place] [address] Performed By: #### S #### [facility] CLIA [id number] [address] [place], [place] [address]K [id number] [place] [address] [place] CNOVon 08-25-2023 CNOV Office Visit (GENSME) MAYTE POTTS ([id number]) 1980 F Date Time Provider Department 08/25/23 2:15 PM ANAHI MICHEL During your visit today, we recorded the following information about you: Pulse Blood pressure Weight Height 77/minute 134/88 95.7 kg 1.6 Anahi Rehman MD 08/25/2023 4:07 PM Signed PROGRESS NOTES PATIENT NAME: Mayte Potts Assessment ASSESSMENT AND PLAN Patient is a 43-year-old female with right upper quadrant pain and gallstones. I do believe that her symptoms are likely biliary colic in nature. I recommended a laparoscopic cholecystectomy as treatment. We discussed the details of the planned procedure including the risks benefits and alternatives. She wishes to proceed. This will be scheduled in a timely manner. SUBJECTIVE CHIEF COMPLAINT: Patient presents with: Consult: gallstones INTERVAL HISTORY OF PRESENT ILLNESS: Patient is a 43-year-old female who was recently in the emergency room at [facility] in [place] with abdominal pain. She underwent ultrasound and CT scan that showed gallstones but no gallbladder wall thickening. She was discharged home. She states she is still having some persistent upper right abdominal pain along with nausea and bloating as well as nausea. She does feel that her symptoms seem to be worse after eating. HISTORIES: PAST MEDICAL HISTORY Diagnosis Date Anxiety 01/01/2020 Class 2 obesity without serious comorbidity with body mass index (BMI) of 38.0 to 38.9 in adult 01/01/2020 Depression 01/01/2020 PAST SURGICAL HISTORY Procedure Laterality Date BREAST REDUCTION COLONOSCOPY SCREENING 12/2022 Dr. Olivera EGD W/O BRSH SPEC VARICIES INJ 02/2023 Dr. Olivera HYSTERECTOMY HX ALLERGIES: Sulfa (Sulfonamide Antibiotics) MEDICATIONS: Current Outpatient Medications Medication Sig semaglutide (OZEMPIC) 0.25 mg or 0.5 mg (2 mg/3 mL) pen every week ALPRAZolam (XANAX) 1 mg tablet TAKE 1 TABLET (1 MG) BY MOUTH IN THE MORNING AND 1 TABLET (1 MG) BEFORE BEDTIME. valACYclovir (VALTREX) 1 gram tablet Take 1 tablet by mouth every afternoon. pantoprazole DR (PROTONIX) 40 mg tablet Take 40 mg by mouth daily before breakfast. ondansetron orally disintegrating (ZOFRAN ODT) 4 mg disintegrating tablet LINZESS 145 mcg capsule take 1 capsule by mouth every day before breakfast keTORolac (TORADOL) 10 mg tablet as needed. hyoscyamine SR (LEVBID) 0.375 mg 12 hr tablet TAKE 1 TABLET BY MOUTH 3 TIMES A DAY BEFORE MEALS famotidine (PEPCID) 40 mg tablet Take 40 mg by mouth daily at bedtime. dicyclomine (BENTYL) 20 mg tablet as directed. buPROPion XL (WELLBUTRIN XL) 150 mg 24 hr tablet Take 1 tablet by mouth every afternoon. No current facility-administere d medications for this visit. FAMILY HISTORY Problem Relation Age of Onset Obesity Paternal Grandmother Obesity Paternal Grandfather Social History Tobacco Use Smoking status: Never Smokeless tobacco: Never Vaping Use Vaping Use: Never used Substance Use Topics Alcohol use: Never Drug use: Never OBJECTIVE PHYSICAL EXAM: BP 134/88 Pulse 77 Ht 5' 3 (1.60m) Wt 211 lb (95.7kg) BMI 37.39 kg/(m2). GENERAL: Alert, no distress, cooperative ABDOMEN: Mild right upper quadrant tenderness to palpation. DATA: Diagnostic tests reviewed for today's visit: Most recent labs and imaging results. Anahi Michel MD Allergies As of Date: 08/25/2023 Noted Allergy Reaction SULFA (SULFONAMIDE ANTIBIOTICS) 10/11/2018 4 - Hives Date Reviewed: 08/25/2023 Reviewed by: Anahi Michel MD - Fully Assessed Reason for Visit: Consult [173] Cmt: gallstones Primary Visit Diagnosis:Gallstones [K80.20] Order(s):SURGICAL REQUEST - ELECTIVE (12/2019) [[id number]] Order #: [id number]: 1 Prescriptions as of 08/25/2023 - semaglutide (OZEMPIC) 0.25 mg or 0.5 mg (2 mg/3 mL) pen every week - ALPRAZolam (XANAX) 1 mg tablet TAKE 1 TABLET (1 MG) BY MOUTH IN THE MORNING AND 1 TABLET (1 MG) BEFORE BEDTIME. - valACYclovir (VALTREX) 1 gram tablet Take 1 tablet by mouth every afternoon. - pantoprazole DR (PROTONIX) 40 mg tablet Take 40 mg by mouth daily before breakfast. - ondansetron orally disintegrating (ZOFRAN ODT) 4 mg disintegrating tablet - LINZESS 145 mcg capsule take 1 capsule by mouth every day before breakfast - keTORolac (TORADOL) 10 mg tablet as needed. - hyoscyamine SR (LEVBID) 0.375 mg 12 hr tablet TAKE 1 TABLET BY MOUTH 3 TIMES A DAY BEFORE MEALS - famotidine (PEPCID) 40 mg tablet Take 40 mg by mouth daily at bedtime. - dicyclomine (BENTYL) 20 mg tablet as directed. - buPROPion XL (WELLBUTRIN XL) 150 mg 24 hr tablet Take 1 tablet by mouth every afternoon. Problem List As Of Date 08/25/2023 Noted Resolved Class 2 obesity without serious comorbidity wit*01/01/2020 Anxiety [F41.9] 01/01/2020 Depression [F32.A] (more content not included)... [facility] Telephone ([place] MANNIEMAYTE Lara ([id number]) 1980 F Date Time Provider Department 08/25/23 ANAHI MICHEL During your visit today, we recorded the following information about you: Malinda Reyes RN 08/25/2023 4:14 PM Signed [facility] paper work filled out and signed by Provider. Reviewed with patient. Faxed to [facility] [employer]. Confirmation received. Records sent to be scanned to chart. Encounter closed. Allergies As of Date: 08/25/2023 Noted Allergy Reaction SULFA (SULFONAMIDE ANTIBIOTICS) 10/11/2018 4 - Hives Date Reviewed: 08/25/2023 Reviewed by: Anahi Michel MD - Fully Assessed Reason for Visit: [facility] Paperwork [4189] Prescriptions as of 08/25/2023 - semaglutide (OZEMPIC) 0.25 mg or 0.5 mg (2 mg/3 mL) pen every week - ALPRAZolam (XANAX) 1 mg tablet TAKE 1 TABLET (1 MG) BY MOUTH IN THE MORNING AND 1 TABLET (1 MG) BEFORE BEDTIME. - valACYclovir (VALTREX) 1 gram tablet Take 1 tablet by mouth every afternoon. - pantoprazole DR (PROTONIX) 40 mg tablet Take 40 mg by mouth daily before breakfast. - ondansetron orally disintegrating (ZOFRAN ODT) 4 mg disintegrating tablet - LINZESS 145 mcg capsule take 1 capsule by mouth every day before breakfast - keTORolac (TORADOL) 10 mg tablet as needed. - hyoscyamine SR (LEVBID) 0.375 mg 12 hr tablet TAKE 1 TABLET BY MOUTH 3 TIMES A DAY BEFORE MEALS - famotidine (PEPCID) 40 mg tablet Take 40 mg by mouth daily at bedtime. - dicyclomine (BENTYL) 20 mg tablet as directed. - buPROPion XL (WELLBUTRIN XL) 150 mg 24 hr tablet Take 1 tablet by mouth every afternoon. Problem List As Of Date 08/25/2023 Noted Resolved Class 2 obesity without serious comorbidity wit*01/01/2020 Anxiety [F41.9] 01/01/2020 Depression [F32.A] 01/01/2020 Hiatal hernia [K44.9] 01/01/2020 Encounter Status:Closed by MALINDA REYES on 08/25/23 Normal [facility] Alanine aminotransferase [En zymatic activity/volume] in Serum or PlasmaOrdered By: Jacinta Israel on 08-22-2023 ALT [Catalytic activity/Vol] 22 U/L Normal 7-52 [facility] Comment on above: Performed By: #### C BC, HS TROP, HEPATIC, BMP, JOSELIN, LIPASE ####[facility] [id number] [place] [id number] [facility] Albumin [Mass/volume] in Ser um or Plasma by Bromocresol green (BCG) dye binding methoOrdered By: Jacinta Israel on 08-22-2023 Albumin BCG dye [Mass/Vol] 3.9 g/dL 3.5-5.7 [facility] Alkaline phosphatase [Enzyma tic activity/volume] in Serum or PlasmaOrdered By: Jacinta Israel on 08-22-2023 ALP [Catalytic activity/Vol] 65 U/L Normal 34-104 [facility] Comment on above: Performed By: #### C BC, HS TROP, HEPATIC, BMP, JOSELIN, LIPASE ####[facility] [id number] [place] [id number] [place] Amylase [Enzymatic activity/ volume] in Serum or PlasmaOrdered By: Jacinta Avalosimore on 08-22-2023 Amylase [Catalytic activity/Vol] 40 U/L Normal 29-103 [facility] Comment on above: Performed By: #### C BC, HS TROP, HEPATIC, BMP, JOSELIN, LIPASE ####[address] Aspartate aminotransferase [ Enzymatic activity/volume] in Serum or PlasmaOrdered By: Jacinta Bullimore on 08-22-2023 AST [Catalytic activity/Vol] 27 U/L Normal 13-39 [facility] Comment on above: Performed By: #### C BC, HS TROP, HEPATIC, BMP, JOSELIN, LIPASE ####[address] Automated basophil %Ordered By: Jacinta Bullimore on 08-22-2023 Basophils/100 WBC (Bld) 0.7 % Normal . [facility] Comment on above: Performed By: #### C BC, HS TROP, HEPATIC, BMP, JOSELIN, LIPASE ####[address] Automated basophil countOrde red By: Jacinta Robbieimore on 08-22-2023 Basophils (Bld) [#/Vol] 0.0 10*3/uL Normal 0.0-0.2 [facility] Comment on above: Result Comment: PERF ORMED BY: [facility] [address] [place] [address] PATHOLOGIST TOP WADDY GAGAN LAGUNA M.D. Performed By: #### C BC, HS TROP, HEPATIC, BMP, JOSELIN, LIPASE ####[address] Automated blood monocyte cou ntOrdered By: Jacinta Bullimore on 08-22-2023 Monocytes (Bld) [#/Vol] 0.5 10*3/uL Normal 0.0-0.8 [facility] Comment on above: Performed By: #### C BC, HS TROP, HEPATIC, BMP, JOSELIN, LIPASE ####[address] Automated eosinophil %Ordere d By: Jacinta Bullimore on 08-22-2023 Eosinophils/100 WBC (Bld) 2.9 % Normal . [facility] Comment on above: Performed By: #### C BC, HS TROP, HEPATIC, BMP, JOSELIN, LIPASE ####[place] [id number] [address] Automated eosinophil countOr dered By: Jacinta Avalosyodit on 08-22-2023 Eosinophils (Bld) [#/Vol] 0.1 10*3/uL Normal 0.0-0.45 [facility] Comment on above: Performed By: #### C BC, HS TROP, HEPATIC, BMP, JOSELIN, LIPASE ####[place] [phone] [address] Automated monocyte %Ordered By: Jacinta Lindy on 08-22-2023 Monocytes/100 WBC (Bld) 10.2 % Normal . [facility] Comment on above: Performed By: #### C BC, HS TROP, HEPATIC, BMP, JOSELIN, LIPASE ####[place] [phone] [address] Automated neutrophil %Ordere d By: Jacinta Lindy on 08-22-2023 Neutrophils/100 WBC (Bld) 56.8 % Normal . [facility] Comment on above: Performed By: #### C BC, HS TROP, HEPATIC, BMP, JOSELIN, LIPASE ####[address] Automated urine color determ inationOrdered By: Jacinta Lindy on 08-22-2023 Color (U) Yellow Normal Yellow [facility] Comment on above: Order Comment: Name Collection Type:: Clean-Voided Midstream Performed By: #### U A #### [facility] [address] Basic Metabolic Panelon 04-0 Anion gap [Moles/Vol] Not performed Normal 6.0-15.0 [facility] Comment on above: Performed By: #### C BC, HS TROP, HEPATIC, BMP, JOSELIN, LIPASE ####[place] [phone] [address] Creatinine Clr Calc Pharmacy 91.64 Normal [facility] Comment on above: Performed By: #### C BC, HS TROP, HEPATIC, BMP, JOSELIN, LIPASE ####[place] [address] [place] GFR/1.73 sq M.predicted MDRD (S/P/Bld) [Vol rate/Area] mL/min/{1.73_m2} Normal [facility] Comment on above: Performed By: #### C BC, HS TROP, HEPATIC, BMP, JOSELIN, LIPASE ####[place] [phone] Potassium Normal 3.5-5.1 [facility] Comment on above: Result Comment: Spec imen hemolyzed, redraw requested Performed By: #### C BC, HS TROP, HEPATIC, BMP, JOSELIN, LIPASE ####[place] [phone] [address] Bilirubin Test strip Ql (U)O rdered By: Jacinta Israel on 08-22-2023 Bilirubin Ql (U) Negative Negative [facility] Bilirubin.direct [Mass/volum e] in Serum or PlasmaOrdered By: Jacinta Israel on 08-22-2023 Bilirubin.direct [Mass/Vol] 0.10 mg/dL 0.03-0.18 [facility] Bilirubin.total [Mass/volume ] in Serum or PlasmaOrdered By: Jacinta Israel on 08-22-2023 Bilirubin [Mass/Vol] 0.4 mg/dL Normal 0.3-1.0 [facility] Comment on above: Performed By: #### C BC, HS TROP, HEPATIC, BMP, JOSELIN, LIPASE ####[place] [phone] abdomen pelvis w conon CT abdomen pelvis w con [facility] Main [place] [address] [place] [address] CT Scan Report Signed Patient: Lisa Contreras MR#: [id number] : 1980 Acct:[id number] Age/Sex: 43 / F ADM Date: 08/22/23 Loc: ER Room: Type: [facility] ER Attending Dr: Copies to: CATHY Adames Ordering Provider: CATHY Adames Date of Service: 08/22/23 CT/CT abdomen pelvis w con: Abdominal Pain CT ABDOMEN AND PELVIS WITH INTRAVENOUS CONTRAST: CLINICAL HISTORY: Chronic abdominal pain, worse yesterday with nausea and bloating COMPARISON: Gallbladder ultrasound performed today TECHNIQUE: Spiral images were obtained through the abdomen and pelvis following the administration of intravenous contrast. This CT exam was performed using one or more following dose reduction techniques: Automated exposure control, adjustment of the mA and/or kV according to patient size, or use of iterative reconstruction technique. FINDINGS: Lung Bases: [No acute findings.] Organs:The known gallstone appears occult on the CT study. Liver CBD portal vein spleen pancreas adrenal glands kidneys and aorta all appear unremarkable.[ GI: Stomach is grossly unremarkable. Small bowel appears nondilated. No acute colonic abnormality. Appendix is normal.[ Pelvis:[Urinary bladder is grossly unremarkable. No adnexal mass. Uterus has been removed.] Peritoneum/Retroperi toneum:No free air, free fluid or lymphadenopathy.[ Abd wall/Bones:Abdominal wall demonstrates no acute findings. Osseous structures demonstrate degenerative change.[ CT/CT abdomen pelvis w con IMPRESSION: No acute process is seen. Impression dictated by: Ankit Reyes Jr., JonathanOYovani08/22/2023 12:37 PM Dictation Location: [place] [address] Transcribed By: [facility] 08/22/23 1237 Dictated By: Ankit Reyes Jr, DO 08/22/23 1233 Signed By: 08/22/23 1237 Normal [facility] Calcium [Mass/volume] in Ser um or PlasmaOrdered By: Jacinta Israel on 08-22-2023 Calcium [Mass/Vol] 8.4 mg/dL Low 8.6-10.3 [facility] Comment on above: Performed By: #### C BC, HS TROP, HEPATIC, BMP, JOSELIN, LIPASE ####[facility] [id number] [place] [id number] [facility] Carbon dioxide, total [Moles /volume] in Serum or PlasmaOrdered By: Jacinta Israel on 08-22-2023 CO2 [Moles/Vol] 27.0 mmol/L Normal 21.0-31.0 [facility] Comment on above: Performed By: #### C BC, HS TROP, HEPATIC, BMP, JOSELIN, LIPASE ####[address] Chloride [Moles/volume] in S edilberto or PlasmaOrdered By: Jacinta Robbieimore on 08-22-2023 Chloride [Moles/Vol] 105 mmol/L Normal 98-107 [facility] Comment on above: Performed By: #### C BC, HS TROP, HEPATIC, BMP, JOSELIN, LIPASE ####[address] Complete Blood Count Auto Di ffon 08-22-2023 Mean Corpuscular HGB Conc 33.3 g/dL Normal 32.0-35.0 [facility] Comment on above: Performed By: #### C BC, HS TROP, HEPATIC, BMP, JOSELIN, LIPASE ####[address] Monocytes/100 WBC (Bld) 20.08 % High 0.00-20.00 [facility] Comment on above: Result Comment: For adults in ED, MDW > 20.0 may be associated with a higher risk of sepsis during the first 12 hrs of hospital admission Performed By: #### C BC, HS TROP, HEPATIC, BMP, JOSELIN, LIPASE ####[address] NRBC% 0.2 /100{WBC} Normal 0-0.5 [facility] Comment on above: Performed By: #### C BC, HS TROP, HEPATIC, BMP, JOSELIN, LIPASE ####[address] Creatinine [Mass/volume] in Serum or PlasmaOrdered By: Jacinta Bullimore on 08-22-2023 Creatinine [Mass/Vol] 0.86 mg/dL Normal 0.60-1.20 [facility] Comment on above: Performed By: #### C BC, HS TROP, HEPATIC, BMP, JOSELIN, LIPASE ####[address] ECG 12 lead ECGon 08-22-2023 ECG 12 lead ECG [facility] [address] Electrocardiograph Report Signed Patient: Lisa Contreras MR#: [id number] : 1980 Acct:[id number] Age/Sex: 43 / F ADM Date: 08/22/23 Loc: ER Room: Type: [facility] ER Attending Dr: Ordering Provider: CATHY Adames Date of Service: 08/22/2312/08/1119 ECG/ECG 12 lead ECG: Abdominal Pain Copies to: Test Reason : Blood Pressure : 124/083 mmHG Vent. Rate : 070 BPM Atrial Rate : 070 BPM P-R Int : 148 ms QRS Dur : 088 ms QT Int : 422 ms P-R-T Axes : 006 040 010 degrees QTc Int : 455 ms Normal sinus rhythm Normal ECG No previous ECGs available Confirmed by Lamont Saldana DO ([id number]) on 08/22/2023 3:07:45 PM Referred By: Electronically Signed By:Lamont Saldana DO Transcribed By: MUS Signed By Lamont Saldana DO 4 1507 Normal [facility] Erythrocyte distribution wid th [Ratio] by Automated countOrdered By: Jacinta Israel on 08-22-2023 Erythrocyte distribution width (RBC) [Ratio] 13.6 % Normal 11.9-15.3 [facility] Comment on above: Performed By: #### C BC, HS TROP, HEPATIC, BMP, JOSELIN, LIPASE ####[facility] [address] [place] [address] [place] Erythrocytes [#/volume] in B lood by Automated countOrdered By: Jacinta Israel on 08-22-2023 RBC (Bld) [#/Vol] 4.95 10*6/uL Normal 3.60-5.00 [facility] Comment on above: Performed By: #### C BC, HS TROP, HEPATIC, BMP, JOSELIN, LIPASE ####[facility] [id number] [place] [id number] [facility] Glucose [Mass/volume] in Ser um or PlasmaOrdered By: Jacinta Israel on 08-22-2023 Glucose [Mass/Vol] 81 mg/dL Normal 70-100 [facility] Comment on above: ADA recommended refe rence rangeRandom Glucose Reference Range is dependent on time and content of last meal. Glucose of more than 200 mg/dL in a nonstressed, ambulatory subject supports the diagnosis of Diabetes Mellitus. Result Comment: [place] om Glucose Reference Range is dependent on time and content of last meal. Glucose of more than 200 mg/dL in a nonstressed, ambulatory subject supports the diagnosis of Diabetes Mellitus. ADA recommended reference range Performed By: #### C BC, HS TROP, HEPATIC, BMP, JOSELIN, LIPASE ####[address] Hematocrit [Volume Fraction] of Blood by Automated countOrdered By: Jacinta Israel on 08-22-2023 Hematocrit (Bld) [Volume fraction] 42.0 % Normal 34.0-46.4 [facility] Comment on above: Performed By: #### C BC, HS TROP, HEPATIC, BMP, JOSELIN, LIPASE ####[address] Hemoglobin [Mass/volume] in BloodOrdered By: Jacinta Israel on 08-22-2023 Hemoglobin (Bld) [Mass/Vol] 14.0 g/dL Normal 11.8-15.4 [facility] Comment on above: Performed By: #### C BC, HS TROP, HEPATIC, BMP, JOSELIN, LIPASE ####[address] Hepatic Panelon 08-22-2023 Albumin [Mass/Vol] 3.9 g/dL Normal 3.5-5.7 [facility] Comment on above: Performed By: #### C BC, HS TROP, HEPATIC, BMP, JOSELIN, LIPASE ####[address] Bilirubin,Indirect 0.3 mg/dL Normal [facility] Comment on above: Performed By: #### C BC, HS TROP, HEPATIC, BMP, JOSELIN, LIPASE ####[address] Bilirubin.indirect [Mass/Vol] 0.10 mg/dL Normal 0.03-0.18 [facility] Comment on above: Performed By: #### C BC, HS TROP, HEPATIC, BMP, JOSELIN, LIPASE ####[place] [phone] [address] Ketones Auto test strip (U) [Mass/Vol]Ordered By: Jacinta Israel on 08-22-2023 Ketones (U) [Mass/Vol] Negative Negative [facility] Leukocytes [#/volume] correc mayda for nucleated erythrocytes in Blood by Automated counOrdered By: Jacinta Avalosimore on 08-22-2023 WBC corrected for nucl RBC Auto (Bld) [#/Vol] 4.9 10*3/uL 3.8-11.6 [facility] Leukocytes [#/volume] in Blo od by Automated countOrdered By: Jacinta Worthingtonore on 08-22-2023 WBC (Bld) [#/Vol] 4.9 10*3/uL Normal 3.8-11.6 [facility] Comment on above: Performed By: #### C BC, HS TROP, HEPATIC, BMP, JOSELIN, LIPASE ####[place] [id number] [address] Lipase [Enzymatic activity/v olume] in Serum or PlasmaOrdered By: Jacinta Israel on 08-22-2023 Lipase [Catalytic activity/Vol] 35.0 U/L Normal 11.0-82.0 [facility] Comment on above: Result Comment: PERF ORMED BY: [facility] [address] [place] [address] PATHOLOGIST TOP WADDY GAGAN LAGUNA M.D. Performed By: #### C BC, HS TROP, HEPATIC, BMP, JOSELIN, LIPASE ####[place] [id number] [facility] Lymphocytes [#/volume] in Bl ood by Automated countOrdered By: Jacinta Israel on 08-22-2023 Lymphocytes (Bld) [#/Vol] 1.4 10*3/uL Normal 1.00-4.8 [facility] Comment on above: Performed By: #### C BC, HS TROP, HEPATIC, BMP, JOSELIN, LIPASE ####[address] Lymphocytes/100 leukocytes i n Blood by Automated countOrdered By: Jacinta Israel on 08-22-2023 Lymphocytes/100 WBC (Bld) 29.4 % Normal . [facility] Comment on above: Performed By: #### C BC, HS TROP, HEPATIC, BMP, JOSELIN, LIPASE ####[address] MCH [Entitic mass] by Automa mayda countOrdered By: Jacinta Israel on 08-22-2023 MCH (RBC) [Entitic mass] 28.3 pg Normal 24.7-34.3 [facility] Comment on above: Performed By: #### C BC, HS TROP, HEPATIC, BMP, JOSELIN, LIPASE ####[address] MCHC Auto (RBC) [Mass/Vol]Or dered By: Jacinta Israel on 08-22-2023 MCHC (RBC) [Mass/Vol] 33.3 g/dL 32.0-35.0 [facility] MCV [Entitic volume] by Auto mated countOrdered By: Jacinta Israel on 08-22-2023 MCV (RBC) [Entitic vol] 84.9 fL Normal 80-100 [facility] Comment on above: Performed By: #### C BC, HS TROP, HEPATIC, BMP, JOSELIN, LIPASE ####[address] Monocyte distribution width [Entitic volume] in Blood by AutomatedOrdered By: Jacinta Israel on 08-22-2023 Monocyte distribution width Auto (Bld) [Entitic vol] 20.08 % 0.00-20.00 [facility] Comment on above: For adults in ED, MD W > 20.0 may be associated with a higher risk of sepsis during the first 12 hrs of hospital admission Neutrophils [#/volume] in Bl ood by Automated countOrdered By: Jacinta Avalosimalesia on 08-22-2023 Neutrophils (Bld) [#/Vol] 2.8 10*3/uL Normal 1.8-7.7 [facility] Comment on above: Performed By: #### C BC, HS TROP, HEPATIC, BMP, JOSELIN, LIPASE ####[facility] [id number] [place] [id number] [facility] Nitrite Test strip Ql (U)Ord ered By: Jacinta Israel on 08-22-2023 Nitrite Ql (U) Negative Negative [facility] No Panel InformationOrdered By: Jacinta Israel on 08-22-2023 Estimated GFR (CKD-EPI) > 60.0 mL/Min [facility] Creatinine Clearance (Chem 91.64 [facility] Nucleated erythrocytes [Pres ence] in Blood by Automated countOrdered By: Jacinta Israel on 08-22-2023 Nucleated RBC Auto Ql (Bld) 0.2 /100{WBC} 0-0.5 [facility] Platelet mean volume [Entiti c volume] in Blood by Automated countOrdered By: Jacinta Israel on 08-22-2023 Platelet mean volume (Bld) [Entitic vol] 7.0 fL Normal 6.3-10.7 [facility] Comment on above: Performed By: #### C BC, HS TROP, HEPATIC, BMP, JOSELIN, LIPASE ####[facility] [place] [id number] [facility] Platelets [#/volume] in Bloo d by Automated countOrdered By: Jacinta Israel on 08-22-2023 Platelets (Bld) [#/Vol] 263 10*3/uL Normal 150-450 [facility] Comment on above: Performed By: #### C BC, HS TROP, HEPATIC, BMP, JOSELIN, LIPASE ####[place] [id number] [place] [id number] [facility] Potassium [Moles/volume] in Serum or PlasmaOrdered By: Jacinta Israel on 08-22-2023 Potassium [Moles/Vol] 3.9 mmol/L Normal 3.5-5.1 [facility] Comment on above: Order Comment: BOTH TUBES HEMOLYZED. ER WOULD LIKE PHLEB. NOTIFIED JENELLE Result Comment: PERF ORMED BY: [facility] [address] [place] [address] PATHOLOGIST TOP WADDY GAGAN LAGUNA M.D. Performed By: #### R ZHANNA Holman #### [facility] [address] Protein Auto test strip (U) [Mass/Vol]Ordered By: Jacinta Bullimore on 08-22-2023 Protein (U) [Mass/Vol] Negative Negative [facility] Protein [Mass/volume] in Ser um or PlasmaOrdered By: Jacinta Bullimore on 08-22-2023 Protein [Mass/Vol] 6.7 g/dL Normal 6.4-8.9 [facility] Comment on above: Performed By: #### C BC, HS TROP, HEPATIC, BMP, JOSELIN, LIPASE ####[place] [id number] [address] Serum globulin measurement b y calculation (mass/volume)Ordered By: Jacinta Bullimore on 08-22-2023 Globulin (S) [Mass/Vol] 2.8 g/dL Normal [facility] Comment on above: Performed By: #### C BC, HS TROP, HEPATIC, BMP, JOSELIN, LIPASE ####[place] [id number] Serum or plasma albumin/glob ulin mass ratioOrdered By: Jacinta Bullimore on 08-22-2023 Albumin/Globulin [Mass ratio] 1.4 {ratio} Normal [facility] Comment on above: Performed By: #### C BC, HS TROP, HEPATIC, BMP, JOSELIN, LIPASE ####[place] [id number] Serum or plasma anion gap de terminationOrdered By: Jacinta Bullimore on 08-22-2023 Anion gap [Moles/Vol] TNP [facility] Comment on above: Test not performed Serum or plasma non-glucuron idated bilirubin measurement (mass/volume)Ordered By: Jacinta Bullimore on 08-22-2023 Bilirubin.indirect [Mass/Vol] 0.3 mg/dL [facility] Sodium [Moles/volume] in Ser um or PlasmaOrdered By: Jacinta Israel on 08-22-2023 Sodium [Moles/Vol] 140 mmol/L Normal 136-145 [facility] Comment on above: Performed By: #### C BC, HS TROP, HEPATIC, BMP, JOSELIN, LIPASE ####[place] [id number] [place] [id number] [facility] Specific gravity Auto test s trip (U) [Rel density]Ordered By: Jacinta Israel on 08-22-2023 Specific gravity (U) [Rel density] 1.007 1.001-1.030 [facility] Troponin I High Sensitivityo n 08-22-2023 Troponin I High Sensitivity < 2.3 Normal 0.0-15.0 [facility] Comment on above: Result Comment: PERF ORMED BY: [place] [address] PATHOLOGIST TOP WADDY GAGAN LAGUNA M.D. Performed By: #### C BC, HS TROP, HEPATIC, BMP, JOSELIN, LIPASE ####[place] [id number] [place] [phone] [facility] Troponin I.cardiac [Mass/vol ume] in Serum or Plasma by Detection limit <= 0.01 ng/Ordered By: Jacinta Israel on 08-22-2023 Troponin I.cardiac DL <= 0.01 ng/mL [Mass/Vol] < 2.3 pg/mL 0.0-15.0 [facility] US gall bladderon 08-22-2023 US gall bladder [facility] [address] Ultrasound Report Signed Patient: Lisa Contreras MR#: [id number] : 1980 Acct:[id number] Age/Sex: 43 / F ADM Date: 08/22/23 Loc: ER Room: Type: [facility] ER Attending Dr: Ordering Provider: CATHY Adames Date of Service: 08/22/23 US/US gall bladder: ABDOMINAL PAIN Copies to: CATHY Adames LIMITED ABDOMINAL ULTRASOUND: CLINICAL HISTORY: Abdominal pain and bloating nausea COMPARISON: None TECHNIQUE: Grayscale and color Doppler images of the right upper quadrant organs were obtained. FINDINGS: Pancreas: Visualized portions appear unremarkable. Liver: Unremarkable. Gallbladder: Cholelithiasis. CBD: 4.5 mm US/US gall bladder IMPRESSION: CHOLELITHIASIS WITHOUT SONOGRAPHIC EVIDENCE OF ACUTE CHOLECYSTITIS.. Impression dictated by: Ankit Reyes Jr., D.OYovani08/22/2023 12:26 PM Dictation Location: [place] [address] Tech: Alesia White Transcribed By: JACQUELINE 08/22/23 122 Dictated By: Ankit Reyes Jr, DO 08/22/23 122 Signed By: 08/22/23 122 Normal [facility] Urea nitrogen [Mass/volume] in Serum or PlasmaOrdered By: Jacinta Israel on 08-22-2023 Urea nitrogen [Mass/Vol] 9 mg/dL Normal 12-08 [facility] Comment on above: Performed By: #### C BC, HS TROP, HEPATIC, BMP, JOSELIN, LIPASE ####[facility] [address] [place] [address] [place] Urinalysison 08-22-2023 Appearance (U) Clear Normal Clear [facility] Comment on above: Order Comment: Name Collection Type:: Clean-Voided Midstream Performed By: #### U A #### [facility] [address] [place] [id number] [place] Bilirubin,Urine Negative Normal Negative [facility] Comment on above: Order Comment: Name Collection Type:: Clean-Voided Midstream Performed By: #### U A #### [facility] [address] [place] [id number] [place] Glucose Ql (U) Normal Normal Normal [facility] Comment on above: Order Comment: Name Collection Type:: Clean-Voided Midstream Performed By: #### U A #### [facility] [address] [place] [id number] [place] Ketones Ql (U) Negative Normal Negative [facility] Comment on above: Order Comment: Name Collection Type:: Clean-Voided Midstream Performed By: #### U A #### [address] Leukocyte esterase Test strip Ql (U) Negative Normal Negative [facility] Comment on above: Order Comment: Name Collection Type:: Clean-Voided Midstream Performed By: #### U A #### [address] Nitrite,Urine Negative Normal Negative [facility] Comment on above: Order Comment: Name Collection Type:: Clean-Voided Midstream Performed By: #### U A #### [address] Occult Blood,Urine Negative Normal Negative [facility] Comment on above: Order Comment: Name Collection Type:: Clean-Voided Midstream Result Comment: PERF ORMED BY: [place] [address] PATHOLOGIST TOP WADDY GAGAN LAGUNA M.D. Performed By: #### U A #### [address] Protein,Urine Negative Normal Negative [facility] Comment on above: Order Comment: Name Collection Type:: Clean-Voided Midstream Performed By: #### U A #### [address] Specificy [place],Urine 1.007 Normal 1.001-1.030 [facility] Comment on above: Order Comment: Name Collection Type:: Clean-Voided Midstream Performed By: #### U A #### [address] Urobilinogen,Urine Normal Normal Normal [facility] Comment on above: Order Comment: Name Collection Type:: Clean-Voided Midstream Performed By: #### U A #### [address] Urine clarity by refractomet ry automatedOrdered By: Jacinta Israel on 08-22-2023 Clarity Refractometry automated (U) Clear Clear [facility] Urine glucose measurement by automated test strip (mass/volume)Ordered By: Jacinta Israel on 08-22-2023 Glucose Auto test strip (U) [Mass/Vol] Normal mg/dL Normal [facility] Urine hemoglobin detection b y automated test stripOrdered By: Jacinta Lindy on 08-22-2023 Hemoglobin Auto test strip Ql (U) Negative Negative [facility] Urine leukocyte esterase det ection by automated test stripOrdered By: Jacinta Israel on 08-22-2023 Leukocyte esterase Auto test strip Ql (U) Negative Negative [facility] Urine pH measurement by auto mated test stripOrdered By: Jacinta Lindy on 08-22-2023 pH (U) 7.0 [pH] Normal 5.0-9.0 [facility] Comment on above: Order Comment: Name Collection Type:: Clean-Voided Midstream Performed By: #### U A #### [address] Urobilinogen Auto test strip (U) [Mass/Vol]Ordered By: Jacinta Israel on 08-22-2023 Urobilinogen (U) [Mass/Vol] Normal mg/dL Normal [facility] Ambulatory Visit Summaryon 0 07-22-2023 Ambulatory Visit Summary MAYTE CONTRERAS :1980 Visit Date:07/22/2023 Ambulatory Visit Instructions Your Diagnosis Excessive dietary caloric intake BMI 38.0-38.9,adult Class 1 obesity due to excess calories in adult Nonsmoker Your Care Team Attending Physician - Dre Pearce MD Primary Care Physician - Dre Pearce MD This Is Your Medications List alprazolam (Xanax 0.5 mg Tab) fluoxetine (FLUoxetine 60 mg oral tablet) hyoscyamine (hyoscyamine 0.375 mg ER Tab) ketotifen ophthalmic (ketotifen 0.025% ophthalmic solution) pantoprazole (Pantoprazole [address] Tab) valacyclovir (Valtrex) Procedures Performed Breast reduction (06/17/2009), Colonoscopy, Hysterectomy. Discharge Vitals Temperature (Oral) 36.8 ?C Heart Rate (Peripheral) 76 Respiratory Rate 16 Blood Pressure 112/76 Height 158 cm Height 62 in Weight 95.1 kg Weight 209.22 lb BMI 38.09 What to do next Scheduled Follow-Up Appointments Wednesday 7:15 AM EDT With: Ramses KEANE, Dre Bateman Where: [facility] Medicine [place] Normal [facility] Medicine Office/Clini c Noteon 07-22-2023 Family Medicine Office/Clinic Note HPI Staff Mayte is a 43 year old female presenting to establish care Establish Care: History: acid reflux, anxiety, depression,IBS Any previous diagnosis: History of seeing any specialist: Dr Jarod Baeza When was your last doctors visit: Last provider: Allison Pandey Any recent labs: Health Maintenance UTD: Colonoscopy: 2022 Mammogram: Jun 2023 normal Pelvic/Pap: needs to find new gyne. Recommended Patti flu: UTD 01/19/23 Acute: discuss weight loss Current issues/complaints: she's primarily to discuss weight loss prefers to stay with her current provider. Had a friend recommend you to her. She's at a standstill and can't lose anymore, does have IBS so doesn't always feel the greatest, following with [facility] for the IBS History of Present Illness - Pt presents to establish care with me today for weight loss. - Pt has been on adipex, but is gaining weight on it. - Pt states she has been on it so long that she believes it does not work. - Pt states she would like to try something else. - Hx of IBS-combined type. - Emotional eating is very present for her. Review of Systems PHQ Score Initial Depression Screen Score: 0 SCORE Physical Exam Vitals & Measurements T: 36.8 ?C(Oral) HR: 76(Peripheral) RR: 16 BP: 112/76 HT: 62 in HT: 158 cm WT: 95.1 kg WT: 209.22 lb BMI: 38.09 General: alert, no acute distress ENMT: oral mucosa moist, Cardiovascular: regular rate and rhythm, normal peripheral perfusion Respiratory: Lungs CTA, respirations non labored Extremities: no deformity, no trauma Neurological: oriented x 4, LOC appropriate for age, CN II-XII intact, motor strength equal & normal bilaterally, speech normal Abdomen: Soft, Nontender, Non-distended, + BS Assessment/Plan 1. Excessive dietary caloric intake (R63.2: Polyphagia) - Discussed medication options. - We will do semaglutide and wellbutrin to help. - Recommended the kevin loose it. - Goal is to loose 5 pounds a month. - Follow up in 6 weeks 2. BMI 38.0-38.9,adult (Z68.38: Body mass index [BMI] 38.0-38.9, adult) - BMI education given in the portal 3. Class 1 obesity due to excess calories in adult (E66.09: Other obesity due to excess calories) - Diet and exercise advised 4. Nonsmoker (Z78.9: Other specified health status) - Please continue to not smoke. Orders: semaglutide, 0.5 mg, SubCutaneous, qWeek, # 1 EA, Refills(s) 0, other reason (Rx) Total time spent preparing for the encounter, evaluating and assessing the patient, documenting the visit, and ordering appropriate follow-up work was 45 minutes. Follow-up No qualifying data available Patient Education BMI for Adults Problem List/Past Medical History Ongoing Breast reduction Depression Excessive dietary caloric intake Obesity.. Panic attack Historical Acid reflux Anxiety Depression Group B streptococcus Procedure/Surgical History Breast reduction (06/17/2009), Colonoscopy, Hysterectomy. 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 Highest education level: Post graduate degree(s). Operates hazardous equipment: No., 01/28/2011 Exercise Exercise type: Walking., 01/28/2011 Home/Environment Lives with Spouse. Living situation: Home/Independent. Alcohol abuse in household: No. Substance abuse in household: No. Smoker in household: Yes. Injuries/Abuse/Negle ct in household: No. Feels unsafe at home: No. Family/Friends available for support: Yes. Concern for family members at home: No. Major illness in household: No. Financial concerns: No., 01/28/2011 Nutrition/Health Regular, 01/28/2011 Sexual Sexually active: Yes., 01/28/2011 Substance Abuse - Denies Substance Abuse, 01/28/2011 Tobacco - Denies Tobacco Use, 09/05/2010 Never (less than 100 in lifetime) Tobacco Use:. Never Smokeless Tobacco Use:., 07/22/2023 Family History Alcoholism: Grandparent. Anxiety: Father. Depression: Father. Primary malignant neoplasm of female breast: Grandparent. Immunizations Vaccine Date Status Comments influenza virus vaccine, inactivated 01/19/2023 Recorded 2023-07-20: PATIENT TOLERATED WELL influenza virus vaccine, inactivated 03/22/2022 Recorded diphtheria/pertussis , acel/tetanus adult 01/13/2022 Recorded SARS-CoV-2 (COVID-19) mRNA BNT-162b2 vax 03/23/2021 Recorded influenza virus vaccine, inactivated 03/12/2021 Recorded SARS-CoV-2 (COVID-19) mRNA BNT-162b2 vax 02/24/2021 Recorded influenza vir (more content not included)... [facility] Comment on above: Result Comment: Elec tronically Signed By: Ramses KEANE, Dre Bateman\.br\Date and Time Signed: 07/22/23 12:27 EST Formson 07-22-2023 Forms [id number] #1.00TIFF [facility] Patient Educationon 07-22-19 24 Patient Education Nutrition BMI for Adults What is BMI? Body mass index (BMI) is a number that is calculated from a person's weight and height. BMI can help estimate how much of a person's weight is composed of fat. BMI does not measure body fat directly. Rather, it is an alternative to procedures that directly measure body fat, which can be difficult and expensive. BMI can help identify people who may be at higher risk for certain medical problems. What are BMI measurements used for? BMI is used as a screening tool to identify possible weight problems. It helps determine whether a person is obese, overweight, a healthy weight, or underweight. BMI is useful for: ? Identifying a weight problem that may be related to a medical condition or may increase the risk for medical problems. ? Promoting changes, such as changes in diet and exercise, to help reach a healthy weight. BMI screening can be repeated to see if these changes are working. How is BMI calculated? BMI involves measuring your weight in relation to your height. Both height and weight are measured, and the BMI is calculated from those numbers. This can be done either in Hebrew ([place] or metric measurements. Note that charts and online BMI calculators are available to help you find your BMI quickly and easily without having to do these calculations yourself. To calculate your BMI in Hebrew (U.S[place] measurements: 1. Measure your weight in pounds (lb). 2. Multiply the number of pounds by 703. ? For example, for a person who weighs 180 lb, multiply that number by 703, which equals 126,540. 3. Measure your height in inches. Then multiply that number by itself to get a measurement called inches squared. ? For example, for a person who is 70 inches tall, the inches squared measurement is 70 inches x 70 inches, which equals 4,900 inches squared. 4. Divide the total from step 2 (number of lb x 703) by the total from step 3 (inches squared): 126,540 ? 4,900 = 25.8. This is your BMI. To calculate your BMI in metric measurements: 1. Measure your weight in kilograms (kg). 2. Measure your height in meters (m). Then multiply that number by itself to get a measurement called meters squared. ? For example, for a person who is 1.75 m tall, the meters squared measurement is 1.75 m x 1.75 m, which is equal to 3.1 meters squared. 3. Divide the number of kilograms (your weight) by the meters squared number. In this example: 70 ? 3.1 = 22.6. This is your BMI. What do the results mean? BMI charts are used to identify whether you are underweight, normal weight, overweight, or obese. The following guidelines will be used: ? Underweight: BMI less than 18.5. ? Normal weight: BMI between 18.5 and 24.9. ? Overweight: BMI between 25 and 29.9. ? Obese: BMI of 30 or above. Keep these notes in mind: ? Weight includes both fat and muscle, so someone with a muscular build, such as an athlete, may have a BMI that is higher than 24.9. In cases like these, BMI is not an accurate measure of body fat. ? To determine if excess body fat is the cause of a BMI of 25 or higher, further assessments may need to be done by a health care provider. ? BMI is usually interpreted in the same way for men and women. Where to find more information For more information about BMI, including tools to quickly calculate your BMI, go to these websites: ? Centers for Disease Control and Prevention: www.cdc.gov ? [place] [employer]: www.heart.org ? National Heart, Lung, and Blood [place]: www.nhlbi.nih.gov Summary ? Body mass index (BMI) is a number that is calculated from a person's weight and height. ? BMI may help estimate how much of a person's weight is composed of fat. BMI can help identify those who may be at higher risk for certain medical problems. ? BMI can be measured using Hebrew measurements or metric measurements. ? BMI charts are used to identify whether you are underweight, normal weight, overweight, or obese. This information is not intended to replace advice given to you by your health care provider. Make sure you discuss any questions you have with your health care provider. Document Revised: 01/24/2020 Document Reviewed: 12/01/2019 [employer] Patient Education ? 2022 [employer]. [facility] Retail - Clinical Noteon Retail - Clinical Note [id number] #1.00TIFF [facility] MG MAMM DX 3D RT CADon 06-10 MG MAMM DX 3D RT CAD Patient: MAYTE CONTRERAS Exam Date: 06/10/2022 : 1980 Gender:F Ordering : DR BONY MARTINEZ . Admission #: [id number] Family : Order #: [id number] CLICK HERE TO VIEW EXAM RADIOLOGY REPORT PROCEDURE: MAMMOGRAM DIAGNOSTIC 3D RIGHT CAD, 06/10/2022, 07:36 ULTRASOUND BREAST RIGHT LIMITED, 06/10/2022, 08:02 COMPARISON: MG MAMM SCREEN 3D BETTE CAD, 08/22/2021. MG MAMM RT DIAG FU, 09/09/2021. US BREAST RIGHT LIMITED, 09/09/2021. INDICATIONS: Abnormal findings on diagnostic imaging of breast Calculator Name NCI Breast Cancer Risk Assessment Tool 5 Year Breast Cancer Risk 0.60% Lifetime Breast Cancer Risk 8.00% Personal Breast Cancer No Personal Ovarian Cancer No Treatments None Family Cancers Grandmother-paternal with breast cancer at age 66; Grandfather-paternal with stomach cancer at age 80; Grandmother-maternal with spine cancer at age 72. LOCATION: [facility] BREAST COMPOSITION: Heterogeneously dense,which may obscure small masses. FINDINGS: DIAGNOSTIC CATEGORY 2--BENIGN FINDING: RIGHT BREAST: Persistent 9 mm partially circumscribed mass/cyst within posterior lower-outer quadrant. Ultrasound evaluation demonstrates a 9 x 7 x 3 mm benign appearing cyst at the 9 o'clock position, 10 cm from the nipple; not significantly changed. RECOMMENDATIONS: ROUTINE MAMMOGRAM AND CLINICAL EVALUATION IN 12 MONTHS. PLEASE NOTE: A NORMAL MAMMOGRAM DOES NOT EXCLUDE THE POSSIBILITY OF BREAST CANCER. A CLINICALLY SUSPICIOUS PALPABLE LUMP SHOULD BE BIOPSIED. Dictated by: Anahi Todd M.D. on 06/10/2022 at 08:15 Approved by: Anahi Todd M.D. on 06/10/2022 at 08:25 Normal [facility] US BREAST RIGHT LIMITEDon US BREAST RIGHT LIMITED Patient: MAYTE CONTRERAS Exam Date: 06/10/2022 : 1980 Gender:F Ordering : DR BONY MARTINEZ . Admission #: [id number] Family : Order #: [id number] CLICK HERE TO VIEW EXAM RADIOLOGY REPORT PROCEDURE: MAMMOGRAM DIAGNOSTIC 3D RIGHT CAD, 06/10/2022, 07:36 ULTRASOUND BREAST RIGHT LIMITED, 06/10/2022, 08:02 COMPARISON: MG MAMM SCREEN 3D BETTE CAD, 08/22/2021. MG MAMM RT DIAG FU, 09/09/2021. US BREAST RIGHT LIMITED, 09/09/2021. INDICATIONS: Abnormal findings on diagnostic imaging of breast Calculator Name NCI Breast Cancer Risk Assessment Tool 5 Year Breast Cancer Risk 0.60% Lifetime Breast Cancer Risk 8.00% Personal Breast Cancer No Personal Ovarian Cancer No Treatments None Family Cancers Grandmother-paternal with breast cancer at age 66; Grandfather-paternal with stomach cancer at age 80; Grandmother-maternal with spine cancer at age 72. LOCATION: [facility] BREAST COMPOSITION: Heterogeneously dense,which may obscure small masses. FINDINGS: DIAGNOSTIC CATEGORY 2--BENIGN FINDING: RIGHT BREAST: Persistent 9 mm partially circumscribed mass/cyst within posterior lower-outer quadrant. Ultrasound evaluation demonstrates a 9 x 7 x 3 mm benign appearing cyst at the 9 o'clock position, 10 cm from the nipple; not significantly changed. RECOMMENDATIONS: ROUTINE MAMMOGRAM AND CLINICAL EVALUATION IN 12 MONTHS. PLEASE NOTE: A NORMAL MAMMOGRAM DOES NOT EXCLUDE THE POSSIBILITY OF BREAST CANCER. A CLINICALLY SUSPICIOUS PALPABLE LUMP SHOULD BE BIOPSIED. Dictated by: Anahi Todd M.D. on 06/10/2022 at 08:15 Approved by: Anahi Todd M.D. on 06/10/2022 at 08:25 Normal [facility] VAGINITIS/VAGINOSIS DNA PROB Taurus 11-05-2021 Genia species Negative Normal Negative [facility] Comment on above: Performed By: #### V AGINT #### [facility] [address] [place] [address] Dr. Jewell Hull Gardnerella vaginalis Positive Abnormal Negative [facility] Comment on above: Performed By: #### V AGINT #### [facility] [address] [address] [address] Jewell Hull Trichomonas vaginalis Negative Normal Negative [facility] Comment on above: Performed By: #### V AGINT #### [facility] [address] [address] [address] Jewell Hull MG MAMM RT DIAG FUon 022 MG MAMM RT DIAG FU Patient: MAYTE CONTRERAS Exam Date: 09/09/2021 : 1980 Gender:F Ordering : DR BONY MARTINEZ . Admission #: [id number] Family : Order #: [id number] CLICK HERE TO VIEW EXAM RADIOLOGY REPORT PROCEDURE: MAMMOGRAM RIGHT DIAGNOSTIC DIGITAL FOLLOW UP, 09/09/2021, 08:48 ULTRASOUND BREAST RIGHT LIMITED, 09/09/2021, 09:11 COMPARISON: MG MAMM SCREEN 3D BETTE CAD, 08/22/2021. INDICATIONS: Breast lump Calculator Name NCI Breast Cancer Risk Assessment Tool 5 Year Breast Cancer Risk 0.50% Lifetime Breast Cancer Risk 8.10% Personal Breast Cancer No Personal Ovarian Cancer No Treatments None Family Cancers Grandmother-paternal with breast cancer at age 66; Grandfather-paternal with stomach cancer at age 80; Grandmother-maternal with spine cancer at age 72. LOCATION: [facility] BREAST COMPOSITION: Heterogeneously dense,which may obscure small masses. FINDINGS: DIAGNOSTIC CATEGORY 3--PROBABLY BENIGN FINDING. THE FOLLOWING FINDING(S) HAS A HIGH PROBABILITY OF A BENIGN ETIOLOGY: Two spot compression views demonstrate a persistent 0.9 x 0.8 mm mildly lobular circumscribed nodule in the lower outer quadrant. Ultrasound demonstrates at the 9 o'clock position 10 cm from the nipple a thick walled cystic lesion measuring 1.0 by 0.5 mm with the wall mildly thickened anteriorly measuring up to 1.4 mm. A collapsing cyst is favored. Follow-up in 6 months is recommended to document stability RECOMMENDATIONS: SHORT TERM FOLLOW-UP DIAGNOSTIC MAMMOGRAM RIGHT BREAST IN 6 MONTHS. SHORT TERM FOLLOW-UP ULTRASOUND RIGHT BREAST IN 6 MONTHS. PLEASE NOTE: A NORMAL MAMMOGRAM DOES NOT EXCLUDE THE POSSIBILITY OF BREAST CANCER. A CLINICALLY SUSPICIOUS PALPABLE LUMP SHOULD BE BIOPSIED. Dictated by: Brooke Veloz MD on 09/09/2021 at 09:20 Approved by: Brooke Veloz MD on 09/09/2021 at 09:24 Normal [facility] US BREAST RIGHT LIMITEDon US BREAST RIGHT LIMITED Patient: MAYTE COTNRERAS Exam Date: 09/09/2021 : 1980 Gender:F Ordering : DR BONY MARTINEZ . Admission #: [id number] Family : Order #: [id number] CLICK HERE TO VIEW EXAM RADIOLOGY REPORT PROCEDURE: MAMMOGRAM RIGHT DIAGNOSTIC DIGITAL FOLLOW UP, 09/09/2021, 08:48 ULTRASOUND BREAST RIGHT LIMITED, 09/09/2021, 09:11 COMPARISON: MG MAMM SCREEN 3D BETTE CAD, 08/22/2021. INDICATIONS: Breast lump Calculator Name NCI Breast Cancer Risk Assessment Tool 5 Year Breast Cancer Risk 0.50% Lifetime Breast Cancer Risk 8.10% Personal Breast Cancer No Personal Ovarian Cancer No Treatments None Family Cancers Grandmother-paternal with breast cancer at age 66; Grandfather-paternal with stomach cancer at age 80; Grandmother-maternal with spine cancer at age 72. LOCATION: [facility] BREAST COMPOSITION: Heterogeneously dense,which may obscure small masses. FINDINGS: DIAGNOSTIC CATEGORY 3--PROBABLY BENIGN FINDING. THE FOLLOWING FINDING(S) HAS A HIGH PROBABILITY OF A BENIGN ETIOLOGY: Two spot compression views demonstrate a persistent 0.9 x 0.8 mm mildly lobular circumscribed nodule in the lower outer quadrant. Ultrasound demonstrates at the 9 o'clock position 10 cm from the nipple a thick walled cystic lesion measuring 1.0 by 0.5 mm with the wall mildly thickened anteriorly measuring up to 1.4 mm. A collapsing cyst is favored. Follow-up in 6 months is recommended to document stability RECOMMENDATIONS: SHORT TERM FOLLOW-UP DIAGNOSTIC MAMMOGRAM RIGHT BREAST IN 6 MONTHS. SHORT TERM FOLLOW-UP ULTRASOUND RIGHT BREAST IN 6 MONTHS. PLEASE NOTE: A NORMAL MAMMOGRAM DOES NOT EXCLUDE THE POSSIBILITY OF BREAST CANCER. A CLINICALLY SUSPICIOUS PALPABLE LUMP SHOULD BE BIOPSIED. Dictated by: Brooke Veloz MD on 09/09/2021 at 09:20 Approved by: Brooke Veloz MD on 09/09/2021 at 09:24 Normal [facility] MAMM SCREEN 3D BETTE CADon 08-22-2021 MG MAMM SCREEN 3D BETTE CAD Patient: MAYTE CONTRERAS Exam Date: 08/22/2021 : 1980 Gender:F Ordering : DR BONY MARTINEZ . Admission #: [id number] Family : Order #: [id number] CLICK HERE TO VIEW EXAM RADIOLOGY REPORT PROCEDURE: MAMMOGRAM SCREENING 3D BILATERAL CAD COMPARISON: MG MAMM SCREEN BETTE W CAD, 07/22/2018. MG MAMM SCREEN 3D BETTE CAD, 08/21/2020. INDICATIONS: Screening mammography Calculator Name NCI Breast Cancer Risk Assessment Tool 5 Year Breast Cancer Risk 0.50% Lifetime Breast Cancer Risk 8.10% Personal Breast Cancer No Personal Ovarian Cancer No Treatments None Family Cancers Grandmother-paternal with breast cancer at age 66; Grandfather-paternal with stomach cancer at age 80; Grandmother-maternal with spine cancer at age 72. LOCATION: [facility] BREAST COMPOSITION: Heterogeneously dense,which may obscure small masses. FINDINGS: DIAGNOSTIC CATEGORY 0--INCOMPLETE: NEED ADDITIONAL IMAGING EVALUATION. Scattered benign-appearing calcifications are present. Scattered benign-appearing lymph nodes are present. RIGHT BREAST: New 9 x 9 x 7.3 mm nodule well-circumscribed upper-outer quadrant, 9 o'clock position, mid to posterior breast. Spot imaging and ultrasound follow-up recommended LEFT BREAST: No significant suspicious finding. RECOMMENDATIONS: ADDITIONAL MAMMOGRAPHIC VIEWS REQUIRED: RIGHT BREAST - spot compression ULTRASOUND: RIGHT BREAST PLEASE NOTE: A NORMAL MAMMOGRAM DOES NOT EXCLUDE THE POSSIBILITY OF BREAST CANCER. A CLINICALLY SUSPICIOUS PALPABLE LUMP SHOULD BE BIOPSIED. Dictated by: Brooke Veloz MD on 08/22/2021 at 07:55 Approved by: Brooke Veloz MD on 08/22/2021 at 07:59 Normal [facility] PAP ACOG PANEL 2: 30 to 65on 08-15-2021 . . Normal [facility] Comment on above: Result Comment: Perf ormed at: WB Performed By: #### [id number] #### [facility] [address] [address] [address] Jewell Hull Age Gdln ACOG Testing 30-65 Normal [facility] Comment on above: Performed By: #### [id number] #### [facility] [address] [address] [address] Jewell Hull DIAGNOSIS: Comment Normal [facility] Comment on above: Result Comment: NEGA TIVE FOR INTRAEPITHELIAL LESION OR MALIGNANCY. FUNGAL ORGANISMS MORPHOLOGICALLY CONSISTENT WITH GENIA SPECIES ARE PRESENT. Performed at: WB Performed By: #### [id number] #### [facility] [address] [address] [address] Jewell Hull HPV Aptima Positive Abnormal Negative [facility] Comment on above: Result Comment: This nucleic acid amplification test detects fourteen high-risk HPV types (16,18,31,33,35,39,45,51,52,56,58,59,66,68) without differentiation. Performed at: =G Performed By: #### [id number] #### [facility] [address] [address] [address] Jewell Hull HPV Genotype 16 Negative Normal Negative [facility] Comment on above: Result Comment: Perf ormed at: =G Performed By: #### [id number] #### [facility] [address] [place] [address] Dr. Jewell Hull HPV Genotype 18,45 Negative Normal Negative [facility] Comment on above: Result Comment: Perf ormed at: =G Performed By: #### [id number] #### [facility] [address] [place] [address] Dr. Jewell Hull Methodology: Comment Normal [facility] Comment on above: Result Comment: This liquid based ThinPrep(R) pap test was screened with the use of an image guided system. Performed at: WB Performed By: #### [id number] #### [facility] [address] [place] [address] Dr. Jewell Hull Note: Comment Normal [facility] Comment on above: Result Comment: The Pap smear is a screening test designed to aid in the detection of premalignant and malignant conditions of the uterine cervix. It is not a diagnostic procedure and should not be used as the sole means of detecting cervical cancer. Both false-positive and false-negative reports do occur. . Performed at: WB Performed By: #### [id number] #### [facility] [address] [place] [address] Dr. Jewell Hull Performed by: Comment Normal [facility] Comment on above: Result Comment: Pilar Mai, Plant Engineering Supervisor (ASCP) Performed at: WB Performed By: #### [id number] #### [facility] [address] [place] [address] Dr. Jewell Hull Specimen adequacy: Comment Normal [facility] Comment on above: Result Comment: Sati sfactory for evaluation. No endocervical component is identified. Performed at: WB Performed By: #### [id number] #### [facility] [address] [place] [address] Dr. Jewell Hull Vital Signs Date Time Vital Sign Value Performing Clinician Facility 07-27-2024 09:15-0400 Body height 160 cm Norma Pandey MD Work Phone: [facility] 07-27-2024 09:15-0400 Body mass index (BMI) [Ratio] 34.19 kg/m2 Norma Pandey MD Work Phone: [facility] 07-27-2024 09:15-0400 Body temperature 98.29 [degF] Norma Pandey MD Work Phone: [facility] 07-27-2024 09:15-0400 Body weight 87.54 kg Norma Pandey MD Work Phone: [facility] 07-27-2024 09:15-0400 Diastolic blood pressure 80 mm[Hg] Norma Pandey MD Work Phone: [facility] 07-27-2024 09:15-0400 Heart rate 85 /min Norma Pandey MD Work Phone: [facility] 07-27-2024 09:15-0400 SaO2% (BldA) [Mass fraction] 98 % Norma Pandey MD Work Phone: [facility] 07-27-2024 09:15-0400 Systolic blood pressure 120 mm[Hg] Norma Pandey MD Work Phone: [facility] 06-29-2024 11:32-0500 Body height 160 cm Norma Pandey MD Work Phone: [facility] 06-29-2024 11:32-0500 Body mass index (BMI) [Ratio] 36.81 kg/m2 Norma Pandey MD Work Phone: [facility] 06-29-2024 11:32-0500 Body temperature 98.29 [degF] Norma Pandey MD Work Phone: [facility] 06-29-2024 11:32-0500 Body weight 94.26 kg Norma Pandey MD Work Phone: [facility] 06-29-2024 11:32-0500 Diastolic blood pressure 86 mm[Hg] Norma Pandey MD Work Phone: [facility] 06-29-2024 11:32-0500 Heart rate 84 /min Norma Pandey MD Work Phone: [facility] 06-29-2024 11:32-0500 SaO2% (BldA) [Mass fraction] 97 % Norma Pandey MD Work Phone: [facility] 06-29-2024 11:32-0500 Systolic blood pressure 120 mm[Hg] Norma Pandey MD Work Phone: [facility] 06-08-2024 12:27-0500 Body height 160 cm Norma Pandey MD Work Phone: [facility] 06-08-2024 12:27-0500 Body mass index (BMI) [Ratio] 37.38 kg/m2 Norma Pandey MD Work Phone: [facility] 06-08-2024 12:27-0500 Body temperature 98.01 [degF] Norma Pandey MD Work Phone: [facility] 06-08-2024 12:27-0500 Body weight 95.71 kg Norma Pandey MD Work Phone: [facility] 06-08-2024 12:27-0500 Diastolic blood pressure 80 mm[Hg] Norma Pandey MD Work Phone: [facility] 06-08-2024 12:27-0500 Heart rate 79 /min Norma Pandey MD Work Phone: [facility] 06-08-2024 12:27-0500 SaO2% (BldA) [Mass fraction] 99 % Norma Pandey MD Work Phone: [facility] 06-08-2024 12:27-0500 Systolic blood pressure 120 mm[Hg] Norma Pandey MD Work Phone: [facility] 05-05-2024 11:34-0500 Body temperature 97.81 [degF] Payton Varma APRN-LABORATORY PHLEBOTOMIST Work Phone: [facility] 05-05-2024 11:34-0500 Body weight 92.99 kg Tia Mandela JAVA INTEGRATION DEVELOPER-LABORATORY PHLEBOTOMIST Work Phone: [facility] 05-05-2024 11:34-0500 Diastolic blood pressure 83 mm[Hg] Tia Mandela JAVA INTEGRATION DEVELOPER-LABORATORY PHLEBOTOMIST Work Phone: [facility] 05-05-2024 11:34-0500 Heart rate 73 /min Tia Mandela JAVA INTEGRATION DEVELOPER-LABORATORY PHLEBOTOMIST Work Phone: [facility] 05-05-2024 11:34-0500 Respiratory rate 16 /min Tia Mandela JAVA INTEGRATION DEVELOPER-LABORATORY PHLEBOTOMIST Work Phone: [facility] 05-05-2024 11:34-0500 SaO2% (BldA) [Mass fraction] 95 % Tia Karenela JAVA INTEGRATION DEVELOPER-LABORATORY PHLEBOTOMIST Work Phone: [facility] 05-05-2024 11:34-0500 Systolic blood pressure 124 mm[Hg] Tia Mandela JAVA INTEGRATION DEVELOPER-LABORATORY PHLEBOTOMIST Work Phone: [facility] 04-10-2024 08:24-0500 Body height 160 cm Norma Pandey MD Work Phone: [facility] 04-10-2024 08:24-0500 Body mass index (BMI) [Ratio] 36.42 kg/m2 Norma Pandey MD Work Phone: [facility] 04-10-2024 08:24-0500 Body temperature 97.7 [degF] Norma Pandey MD Work Phone: [facility] 04-10-2024 08:24-0500 Body weight 93.26 kg Norma Pandey MD Work Phone: [facility] 04-10-2024 08:24-0500 Diastolic blood pressure 60 mm[Hg] Norma Pandey MD Work Phone: [facility] 04-10-2024 08:24-0500 Heart rate 74 /min Norma Pandey MD Work Phone: [facility] 04-10-2024 08:24-0500 SaO2% (BldA) [Mass fraction] 97 % Norma Pandey MD Work Phone: [facility] 04-10-2024 08:24-0500 Systolic blood pressure 118 mm[Hg] Norma Pandey MD Work Phone: [facility] 03-30-2024 13:46-0500 Body temperature 97.11 [degF] Rick Meza MD Work Phone: [facility] 03-30-2024 13:46-0500 Body weight 90.72 kg Rick Meza MD Work Phone: [facility] 03-30-2024 13:46-0500 Diastolic blood pressure 88 mm[Hg] Rick Meza MD Work Phone: [facility] 03-30-2024 13:46-0500 Respiratory rate 16 /min Rick Meza MD Work Phone: [facility] 03-30-2024 13:46-0500 Systolic blood pressure 130 mm[Hg] Rick Meza MD Work Phone: [facility] 01-20-2024 08:17-0400 Body height 160 cm Norma Pandey MD Work Phone: [facility] 01-20-2024 08:17-0400 Body mass index (BMI) [Ratio] 35.92 kg/m2 Norma Pandey MD Work Phone: [facility] 01-20-2024 08:17-0400 Body temperature 98.2 [degF] Norma Pandey MD Work Phone: [facility] 01-20-2024 08:17-0400 Body weight 91.99 kg Norma Pandey MD Work Phone: [facility] 01-20-2024 08:17-0400 Diastolic blood pressure 80 mm[Hg] Norma Pandey MD Work Phone: [facility] 01-20-2024 08:17-0400 Heart rate 70 /min Norma Pandey MD Work Phone: [facility] 01-20-2024 08:17-0400 SaO2% (BldA) [Mass fraction] 97 % Norma Pandey MD Work Phone: [facility] 01-20-2024 08:17-0400 Systolic blood pressure 120 mm[Hg] Norma Pandey MD Work Phone: [facility] 08-25-2023 14:22-0400 Body height 160 cm Anahi Michel MD Work Phone: [facility] 08-25-2023 14:22-0400 Body weight 95.71 kg Anahi Michel MD Work Phone: [facility] 08-25-2023 14:22-0400 Diastolic blood pressure 88 mm[Hg] Anahi Michel MD Work Phone: [facility] 08-25-2023 14:22-0400 Heart rate 77 /min Anahi Michel MD Work Phone: [facility] 08-25-2023 14:22-0400 Systolic blood pressure 134 mm[Hg] Anahi Michel MD Work Phone: [facility] 08-22-2023 13:30-0400 Diastolic blood pressure 90 mm[Hg] DO Teto Katherin Work Phone: [facility] 08-22-2023 13:30-0400 Heart rate 68 /min DO Teto Katherin Work Phone: [facility] 08-22-2023 13:30-0400 Respiratory rate 18 /min DO Teto Katherin Work Phone: [facility] 08-22-2023 13:30-0400 SaO2% (BldA) [Mass fraction] 99 % DO Teto Katherin Work Phone: [facility] 08-22-2023 13:30-0400 Systolic blood pressure 154 mm[Hg] DO Teto Katherin Work Phone: [facility] 08-22-2023 11:05-0400 Body height 160.02 cm DO Teto Katherin Work Phone: [facility] 08-22-2023 11:05-0400 Body temperature 98.1 [degF] DO Teto Katherin Work Phone: [facility] 08-22-2023 11:05-0400 Body weight 95.25 kg DO Teto Katherin Work Phone: [facility] 11-04-2022 07:15-0400 Body height 160.02 cm Kenya Missler Other [employer] Other 11-04-2022 07:15-0400 Body mass index (BMI) [Ratio] 36.49 kg/m2 Kenya Missler Other [employer] Other 11-04-2022 07:15-0400 Body weight 93.44 kg Kenya Missler Other [facility] Other 11-04-2022 07:15-0400 Diastolic blood pressure 82 mm[Hg] Kenya Missler Other [facility] Other 11-04-2022 07:15-0400 Respiratory rate 18 /min Kenya Missler Other [facility] Other 11-04-2022 07:15-0400 SaO2% (BldA) [Mass fraction] 95 % Kenya Missler Other [employer] Other 11-04-2022 07:15-0400 Systolic blood pressure 113 mm[Hg] Kenya Missler Other [facility] Other 09-14-2022 08:30-0400 Body height 160.02 cm Kenya Missler Other [employer] Other 09-14-2022 08:30-0400 Body mass index (BMI) [Ratio] 36.72 kg/m2 Kenya Missler Other [facility] Other 09-14-2022 08:30-0400 Body weight 94.03 kg Kenya Missler Other [employer] Other 09-14-2022 08:30-0400 Diastolic blood pressure 90 mm[Hg] Kenya Missler Other [facility] Other 09-14-2022 08:30-0400 Respiratory rate 18 /min Kenya Missler Other [facility] Other 09-14-2022 08:30-0400 SaO2% (BldA) [Mass fraction] 95 % Kenya Missler Other [facility] Other 09-14-2022 08:30-0400 Systolic blood pressure 132 mm[Hg] Kenya Missler Other [employer] Other 07-18-2019 10:17-0500 BMI (Body Mass Index) 36.53 kg/m2 [employer] 07-18-2019 10:17-0500 Body weight 99.56 kg [place] [employer] 07-18-2019 10:17-0500 BP Diastolic 93 mm[Hg] [facility] [employer] 07-18-2019 10:17-0500 BP Systolic 137 mm[Hg] [facility] [employer] 07-18-2019 10:17-0500 Height 165.1 cm [facility]gg [facility] 10:17-0500 Pulse (Heart Rate) 84 /min [facility]iacony Contreras [facility] Encounters Encounter Date Encounter Type Care Provider Facility Start: 07-27-2024 End: 07-27-2024 Bamboo altagracia Pandey MD Work Phone: [facility] Start: 07-27-2024 End: 07-27-2024 Bamboo mobiDEOSsreedhar Pandey MD Work Phone: [facility] Start: 07-27-2024 End: 07-27-2024 Office outpatient visit 25 minutes Norma Pandey MD Work Phone: [facility] Comment on above: Chronic GERD (Primar y Dx); Panic attacks (CMS/HCC); Anxiety; BMI 34.0-34.9,adult; Obesity (BMI 30.0-34.9); Recurrent cold sores; Sinus pressure Start: 06-29-2024 End: 06-29-2024 Bamboo mobiDEOSsreedhar Pandey MD Work Phone: [facility] Start: 06-29-2024 End: 06-29-2024 Bamboo altagracia Pandey MD Work Phone: [facility] Start: 06-29-2024 End: 06-29-2024 ambulatory NORMA PANDEY Not Available Start: 06-29-2024 End: 06-29-2024 Office outpatient visit 25 minutes Norma Pandey MD Work Phone: [facility] Comment on above: Chronic GERD (Primar y Dx); Panic attacks (CMS/HCC); Anxiety; Morbid obesity (CMS/HCC); BMI 36.0-36.9,adult Start: 06-08-2024 End: 06-08-2024 Bamboo flowssreedhar Pandey MD Work Phone: [facility] Start: 06-08-2024 End: 06-08-2024 Bamboo flowssreedhar Pandey MD Work Phone: [facility] Start: 06-08-2024 End: 06-08-2024 ambulatory NORMA PANDEY Not Available Start: 06-08-2024 End: 06-08-2024 Office outpatient visit 25 minutes Norma Pandey MD Work Phone: [facility] Comment on above: Chronic GERD (Primar y Dx); Panic attacks (CMS/HCC); Anxiety; Morbid obesity (CMS/HCC); BMI 37.0-37.9, adult Start: 05-25-2024 End: 05-25-2024 Refill Milena Donaldson MA [facility] Comment on above: Panic attacks (CMS/H CC); Anxiety Start: 05-10-2024 End: 05-15-2024 Refill Norma Pandey MD Work Phone: [facility] Comment on above: Recurrent cold sores Start: 05-05-2024 End: 05-05-2024 Office outpatient visit 25 minutes Payton Avani JAVA INTEGRATION DEVELOPER-LABORATORY PHLEBOTOMIST Work Phone: [facility] Comment on above: Acute cystitis with hematuria (Primary Dx); Dysuria Start: 04-23-2024 End: 04-23-2024 Emergency department patient visit Jessica King Facility:[facility] Start: 04-11-2024 End: 04-11-2024 Telephone encounter Norma Pandey MD Work Phone: [facility] Comment on above: Medication Question Start: 04-10-2024 End: 04-10-2024 Bamboo altagracia Pandey MD Work Phone: [facility] Start: 04-10-2024 End: 04-10-2024 Bamallegra Pandey MD Work Phone: [facility] Start: 04-10-2024 End: 04-10-2024 Office outpatient visit 25 minutes Norma Pandey MD Work Phone: [facility] Comment on above: Chronic GERD (Primar y Dx); Panic attacks (CMS/HCC); Anxiety; Morbid obesity (CMS/HCC); BMI 36.0-36.9,adult Start: 04-10-2024 End: 04-10-2024 ambulatory NORMA PANDEY Not Available Start: 03-30-2024 End: 03-30-2024 Office outpatient visit 15 minutes Rick Meza MD Work Phone: [facility] Comment on above: Urinary tract infect ion without hematuria, site unspecified (Primary Dx); Frequency of urination Start: 03-06-2024 End: 03-06-2024 Telephone encounter Milena Donaldson MA [facility] Comment on above: Medication Question Start: 01-22-2024 End: 01-22-2024 Clinisync Result Encounter Norma Pandey MD Work Phone: [facility] Unsolic[facility] Start: 01-22-2024 End: 01-22-2024 Clinisync Result Encounter Norma Pandey MD Work Phone: [facility] Start: 01-22-2024 End: 01-22-2024 ambulatory [place] Pandey [place] [place]: 01-20-2024 End: 01-20-2024 Renee Pandey MD Work Phone: [facility] Start: 01-20-2024 End: 01-20-2024 Bamboo altagracia Pandey MD Work Phone: [facility] Start: 01-20-2024 End: 01-20-2024 ambulatory NORMA PANDEY Not Available Start: 01-20-2024 End: 01-20-2024 Patient encounter procedure Norma Pandey MD Work Phone: [facility] Work Phone: Start: 01-20-2024 End: 01-20-2024 Periodic preventive med est patient 40-64yrs Norma Pandey MD Work Phone: [facility] Comment on above: Annual physical exam (Primary Dx); Anxiety; Panic attacks (CMS/HCC); BMI 35.0-35.9,adult; Morbid obesity (CMS/HCC); Screening for metabolic disorder; Screening for hyperlipidemia Start: 12-21-2023 End: 12-21-2023 ambulatory NORMA M KATHERIN Not Available Start: 11-17-2023 End: 11-17-2023 ambulatory NORMA M KATHERIN Not Available Start: 10-26-2023 End: 10-26-2023 ambulatory NORMA M KATHERIN Not Available Start: 09-07-2023 End: 09-07-2023 ambulatory NORMA M KATHERIN Not Available Start: 09-07-2023 End: 09-07-2023 ambulatory Dre Pearce Facility:[facility] Start: 09-02-2023 End: 09-02-2023 ambulatory ANAHI MICHEL Facility:[facility] Start: 09-02-2023 End: 09-02-2023 Patient encounter procedure Anahi Michel MD Work Phone: General Surgery Comment on above: Gallstones (Primary Dx) Start: 09-02-2023 Telephone encounter Anahi casper MD Work Phone: General Surgery Start: 08-30-2023 End: 08-30-2023 ambulatory NORMA KATHERIN Facility:[facility] Start: 08-25-2023 End: 08-25-2023 ambulatory NORMA KATHERIN Facility:[facility] Start: 08-25-2023 End: 08-25-2023 ambulatory ANAHI MICHEL Facility:[facility] Start: 08-25-2023 End: 08-25-2023 Patient encounter procedure Anahi Michel MD Work Phone: General Surgery Comment on above: Gallstones (Primary Dx) Start: 08-25-2023 Telephone encounter Anahi casper MD Work Phone: General Surgery Comment on above: FMLA Paperwork Start: 08-22-2023 End: 08-22-2023 Emergency department patient visit DO Teto Katherin Work Phone: [facility] Work Phone: Start: 07-22-2023 End: 07-22-2023 ambulatory NORMA PANDEY Not Available Start: 07-22-2023 End: 07-22-2023 ambulatory Dre Fransico Ramses Facility:[facility] Start: 07-16-2023 ambulatory Norma Pandey Facility: [facility] Start: 11-04-2022 (FCCCWMNF/U) Weight Management f/u Kenya Cordova [facility] Start: 11-04-2022 End: 11-04-2022 ambulatory Kenya Missler Other [facility] Other Start: 11-04-2022 [facility] Start: 11-02-2022 End: 11-02-2022 ambulatory Kenya Missler Other [facility] Other Start: 11-02-2022 [facility] encounter [facility] Start: 10-13-2022 End: 10-13-2022 ambulatory Kenya Missler Other [facility] Other Start: 10-13-2022 Telephone encounter [facility] Start: 09-14-2022 End: 09-14-2022 ambulatory Kenya Missler Other [facility] Other Start: 09-14-2022 Nutrition therapy Kenya [facility] Start: 06-10-2022 End: 06-11-2022 ambulatory MALINDA ROMERO Facility:[facility] Start: 11-03-2021 End: 11-03-2021 ambulatory MALINDA ROMERO Facility:[facility] Start: 09-09-2021 End: 09-10-2021 ambulatory MALINDA ROMERO Facility:[facility] Start: 08-22-2021 End: 08-23-[address] BONY MARTINEZ Facility:[facility] Start: 08-07-2021 End: 08-07-2021 ambulatory MALINDA ROMERO Facility: Start: 07-18-2019 End: 07-18-2019 Office outpatient new 30 minutes Georgia Gregg Work Phone: [facility] Comment on above: Neoplasm of uncertai n behavior of skin (Primary Dx); Localized adiposity; Atrophic skin Procedures Date Procedure Procedure Detail Performing Clinician Start: 05-05-2024 End: 05-05-2024 Urine test visual color cmprsn meths Bernard Corbett DO Work Phone: Start: 03-30-2024 Urnls dip stick/tablet rgnt auto w/o microscopy Rick Meza MD Work Phone: Start: 01-22-2024 [facility]/ AUTO DIFF Norma Pandey MD Work Phone: Start: 08-22-2023 Computed tomography of abdomen and pelvis with contrast DO Tetomichael Pandey Work Phone: Start: 08-22-2023 US scan of gallbladder DO Teto Katherin Work Phone: Start: 07-16-2023 Mammography Norma Pandey MD Work Phone: Start: 11-16-2022 H/O: hysterectomy Status post hysterectomy Norma Tellez Work Phone: Start: 06-10-2022 Mammography Payton Varma APRN-LABORATORY PHLEBOTOMIST Work Phone: Start: 08-07-2021 Microscopic observation [Identifier] in Cervix by Cyto stain Rick Meza MD Work Phone: Plan of Treatment Date Care Activity Detail Author Start: 01-14-2032 DTaP/Tdap/Td Vaccine s (2 - Td or Tdap) DTaP/Tdap/Td Vaccines (2 - Td or Tdap) [facility] Start: 01-14-2032 Urine microalbumin profile DTaP,Tdap,Td Vaccine (2 - Td or Tdap) [facility] Start: 2029 Zoster Vaccines (1 o f 2) Zoster Vaccines (1 of 2) [facility] Start: 10-31-2024 End: 10-31-2024 Patient encounter procedure 10/31/2024 8:00 AM EDT Office Visit [facility] [address] [place] [address] Norma Pandey MD [address] [place] [address] [facility] Start: 08-07-2024 Screening for malign ant neoplasm of cervix [facility] Start: 08-03-2024 End: 08-03-2024 Patient encounter procedure 08/03/2024 11:00 AM EDT Office [facility] [address] [facility] [place] [phone] Joselin Palomo PA [address] [place] [address] [facility] Start: 07-15-2024 Screening for malign ant neoplasm of breast Mammogram [facility] Start: 04-10-2024 End: 04-10-2024 Patient encounter procedure 04/10/2024 8:20 AM EST Office Visit [facility] [address] [place] [address] Norma Pandey MD [address] [place] [address] Arrived [facility] Comment on above: Arrived Start: 02-08-2024 End: 02-08-2024 Patient encounter procedure 02/08/2024 1:00 PM EDT Office Visit [facility] [address] [facility] [place] [phone] Joselin Palomo PA [address] [place] [address] [facility] Start: 01-20-2024 End: 01-19-2025 CBC W Auto Differential panel - Blood CBC and differential Lab Routine Screening for metabolic disorder Expected: 01/20/2024 (Approximate), Expires: 01/19/2025 [facility] Work Phone: Comment on above: Expected: 01/20/2024 (Approximate), Expires: 01/19/2025 Start: 01-20-2024 End: 01-19-2025 Comprehensive metabolic 2000 panel - Serum or Plasma Comprehensive metabolic panel Lab Routine Screening for metabolic disorder Expected: 01/20/2024 (Approximate), Expires: 01/19/2025 [facility] Comment on above: Expected: 01/20/2024 (Approximate), Expires: 01/19/2025 Start: 01-20-2024 End: 01-19-2025 Lipid 1996 panel - Serum or Plasma Lipid panel Lab Routine Screening for hyperlipidemia Expected: 01/20/2024 (Approximate), Expires: 01/19/2025 [facility] Comment on above: Expected: 01/20/2024 (Approximate), Expires: 01/19/2025 Start: 01-20-2024 End: 01-19-2025 TSH W/REFLEX TO FT4 TSH W/REFLEX TO FT4 Lab Routine Screening for metabolic disorder Expected: 01/20/2024 (Approximate), Expires: 01/19/2025 [facility] Comment on above: Expected: 01/20/2024 (Approximate), Expires: 01/19/2025 Start: 01-16-2024 COVID-19 Vaccine ( season) COVID-19 Vaccine () [facility] Start: 01-16-2024 Influenza vaccination Influenza Vacc ine (#1) [facility] Start: 08-28-2023 Diabetes mellitus screening Diabetes Screening [facility] Start: 06-10-2023 Screening for malign ant neoplasm of breast Mammogram [facility] Start: 01-15-2023 Covid-19 Vaccine ( season) Covid-19 Vaccine () [facility] Start: 08-22-2022 Screening for malign ant neoplasm of breast Mammogram Screening [facility] Start: 2019 Fasting lipid profile LIPID SCREENIN G [facility] Start: 2019 Screening mammography MAMMOGRA M SCREENING DISCUSSION [facility] Start: 01-15-2019 Influenza vaccination INFLUENZA VACC INE (#1) [facility] Start: 2009 Screening for malign ant neoplasm of cervix HPV Testing [facility] Start: 02-08-2000 Screening for malign ant neoplasm of cervix [facility] Start: 1998 Hepatitis B Vaccine (1 of 3 - 19+ 3-dose series) Hepatitis B Vaccine (1 of 3 - 19+ 3-dose series) [facility] Start: 1998 Hepatitis B Vaccines (1 of 3 - 19+ 3-dose series) Hepatitis B Vaccines (1 of 3 - 19+ 3-dose series) [facility] Start: 1998 Third diphtheria, tetanus and acellular pertussis (DTaP) vaccination TDAP (ADULT) [facility] Start: 1997 Hepatitis C screening Hepatitis C Sc reening [facility] Start: 1997 HIV screening HIV Screening [facility] Start: 1997 Tetanus vaccination [facility] Start: 02-08-1992 HIV screening HIV SCREENING DISCUSSI ON [facility] Start: 02-08-1980 MMR Vaccines (1 of 1 - Standard series) MMR Vaccines (1 of 1 - Standard series) [facility] Start: 1979 HIV screening HIV Screening [facility] Start: 1979 Lipid panel Lipid Panel [facility] Start: 1979 Screening for malign ant neoplasm of colon [facility] Start: 1979 Yearly Adult Physical Yearly Adult P hysical [facility] Bacteria identified in Urine by Culture Urine Culture Microbiology Routine Acute cystitis with hematuria Ordered: 05/05/2024 Urgent Care Work Phone: Comment on above: Ordered: 05/05/2024 Patient Education Irritable Nichol l Syndrome (DC) Gallbladder Diet IBS Diet Gallstones ED [facility] Work Phone: Patient referral [facility] Work Phone: [facility] Immunizations Immunization Date Immunization Notes Care Provider Fa brienty 01-19-2023 influenza, injectabl e, quadrivalent, contains preservative Norma Pandey MD Work Phone: [facility] 01-19-2023 influenza virus vacc ine, unspecified formulation Norma Pandey MD Work Phone: [facility] 03-22-2022 influenza, injectabl e, quadrivalent, preservative free Norma Pandey MD Work Phone: [facility] 01-13-2022 tetanus toxoid, redu magi diphtheria toxoid, and acellular pertussis vaccine, adsorbed Norma Pandey MD Work Phone: [facility] 03-12-2021 seasonal influenza, intradermal, preservative free Norma Pandey MD Work Phone: [facility] 03-09-2020 influenza, injectabl e, quadrivalent, preservative free Norma Pandey MD Work Phone: [facility] 12-15-2017 influenza, injectabl e, quadrivalent, preservative free Norma Pandey MD Work Phone: [facility] 02-27-2014 influenza, seasonal, injectable Norma Pandey MD Work Phone: [facility] Healthcare Payers Date Payer Category Payer Self-pay 2023 [facility] ([facility]) [facility] [id number] 2023 Private Health Insurance [facility] [place] [id number] 2018 Unknown [id number]. [id number] 1979 Unknown [id number] 2.16.840.1.696825.3.579.2. 593 1979 Unknown [id number] 2.16840.1.676209.3.579.2. 593 1979 Unknown [id number] 2.16840.1.359017.3.579.2. 593 1979 Unknown [id number] 2.16840.1.299643.3.579.2. 593 1979 Unknown [id number] 2.16840.1.291485.3.579.2. 593 1979 Unknown [id number] 2.16.840.1.137346.3.579.2. 727 1979 Unknown [id number] 2.16840.1.352658.3.579.2. 727 1979 Unknown [id number] 2.16840.1.826392.3.579.2. 727 1979 Unknown [id number] 2.16840.1.050210.3.579.2. 1259 1979 Unknown [id number] 2.16.840.1.322714.3.579.2. 1259 1979 Unknown [id number] 2.16.840.1.828958.3.579.2. 1259 1979 Unknown [id number] 2.16.840.1.394487.3.579.2. 1259 1979 Unknown [id number] 2.16.840.1.470469.3.579.2. 1259 1979 Unknown [id number] 2.16.840.1.380137.3.579.2. 1259 1979 Unknown [id number] 2.16.840.1.959220.3.579.2. 1259 1979 Unknown [id number] 2.16.840.1.470094.3.579.2. 1259 1979 Unknown [id number] 2.16.840.1.235712.3.579.2. 1259 1959 Unknown [id number] Unknown [id number] 2.16.840.1.714057.3.579.2. 531 Unknown [id number] [id number]. 531 Social History Date Type Detail Facility Start: 07-18-2019 End: 11-16-2022 Tobacco smoking status [facility] Never smoker [facility] Start: 1979 Sex Assigned At Not on file [employer] Start: 01-01-2020 End: 12-21-2023 Sex Assigned At [facility] Work Phone: Start: 1980 Sex Assigned At Female F [facility] Start: 10-11-2018 End: 11-16-2022 Tobacco use and exposure Smokeless tobacco non-user [facility] Start: 08-25-2023 End: 07-27-2024 Alcohol intake Lifetime non-drinker (finding) [facility] Start: 01-01-2020 End: 12-21-2023 History of Social function [facility] Work Phone: How often to you hav e a drink containing alcohol? Never [facility] Work Phone: Average Number of Drinks Not on file [facility] Do you belong to any clubs or organizations such as jew groups, unions, fraternal or athletic groups, or school groups? Yes [facility] Are you now , , , , never or living with a partner? [facility] Do you feel stress - tense, restless, nervous, or anxious, or unable to sleep at night because your mind is troubled all the time - these days [OSQ] Very much [facility] (I/We) worried wheth er (my/our) food would run out before (I/we) got money to buy more. Never true [facility] In the past 12 month s, was there a time when you were not able to pay the mortgage or rent on time? No [facility] Start: 11-15-2022 Alcohol Comment Caffeine intak e: 1-2 cups per day pop [facility] Start: 11-01-2023 Gender identity Identifies as female gender (finding) [facility] NEGATED: Highlighted row [facility] Medical Equipment Procedure Code Equipment Code Equipment Origin al Text Equipment Identifier Dates [id number] Start: 10-02-2022 Clinical Notes 09-14-2022 to 07-27-2024 Norma Pandey MD - 07/27/2024 8:40 AM Roro Pandey MD - 06/29/2024 11:20 AM Stephanie Pandey MD - 06/08/2024 12:20 PM JADON Vega - 05/05/2024 11:30 AM EST Note Date & Type Note Facility 07-27-2024 History of Presen t illness Narrative Images from the original note were not included. Subjective Patient ID: Mayte Potts is a 44 y.o. female who presents for Med Refill and Sinusitis. HPI Pt here for follow up. Mood - doing well on current regimen w/o side effects. Helping to control her symptoms during increased periods of anxiety. Continues to work on lifestyle modifications including diet and exercise Also c/o not feeling well x 3-4 days with sinus pressure, nasal congestion, post nasal drainage. Is taking OTC meds w/o relief. +sick contacts Review of Systems General: Denies fever, chills CV: Denies CP, palpitations or swelling in legs Resp: denies cough, SOB or wheezing GI: Denies abd pain/n/v/c/d Skin: Denies rash Neuro: Denies LH or dizziness Objective Blood pressure 120/80, pulse 85, temperature 98.3 F, height 5' 3 , weight 193 lb, SpO2 98%. Body mass index is 34.19 kg/m . Physical Exam General: alert & oriented, NAD Head: NC/AT Oral Cavity: MMM Skin: warm, dry Heart: RRR, No m/r/g, S1S2 nml Lungs: CTA b/l Abdomen: soft, ND/NT, BS wnl Musculoskeletal: normal gait Extremities: no clubbing, cyanosis or edema Neurological: nonfocal Psych: mood/affect full range Assessment/Plan Mayte was seen today for med refill and sinusitis. Diagnoses and all orders for this visit: Chronic GERD (Primary) Stable, continue to monitor. No change in regimen. Panic attacks (CMS/HCC) Stable, continue to monitor. No change in regimen. Anxiety Stable, continue to monitor. No change in regimen. BMI 34.0-34.9,adult Obesity (BMI 30.0-34.9) - phentermine (Adipex-P) 37.5 MG tablet; Take 1 tablet (37.5 mg) by mouth in the morning. Take before meals. - continue to monitor weight - encouraged continued lifestyle modifications Recurrent cold sores - valACYclovir (Valtrex) 1 g tablet; Take 1 tablet (1,000 mg) by mouth Daily Stable, continue to monitor. No change in regimen. Sinus pressure - amoxicillin-clavulanate (Augmentin) 875-125 MG tablet; Take 1 tablet (875 mg) by mouth in the morning and 1 tablet (875 mg) before bedtime. Do all this for 10 days. - fluconazole (Diflucan) 150 MG tablet; Take 1 tablet (150 mg) by mouth 1 (one) time for 1 dose Discussed sx tx, side effects of meds and concerning sx to monitor for. documented in this encounter [facility] 06-29-2024 History of Presen t illness Narrative Images from the original note were not included. Subjective Patient ID: Mayte Potts is a 44 y.o. female who presents for Med Review. HPI Pt here for follow up. Mood - doing well on current regimen w/o side effects. Helping to control her symptoms during increased periods of anxiety. Continues to work on lifestyle modifications including diet and exercise Review of Systems General: Denies fever, chills CV: Denies CP, palpitations or swelling in legs Resp: denies cough, SOB or wheezing GI: Denies abd pain/n/v/c/d Skin: Denies rash Neuro: Denies LH or dizziness Objective Blood pressure 120/86, pulse 84, temperature 98.3 F, height 5' 3 , weight 207 lb 12.8 oz, SpO2 97%. Body mass index is 36.81 kg/m . Physical Exam General: alert & oriented, NAD Head: NC/AT Oral Cavity: MMM Skin: warm, dry Heart: RRR, No m/r/g, S1S2 nml Lungs: CTA b/l Abdomen: soft, ND/NT, BS wnl Musculoskeletal: normal gait Extremities: no clubbing, cyanosis or edema Neurological: nonfocal Psych: mood/affect full range Assessment/Plan Mayte was seen today for med refill. Diagnoses and all orders for this visit: Chronic GERD (Primary) Stable, continue to monitor. No change in regimen. Panic attacks (CMS/HCC) Stable, continue to monitor. No change in regimen. Anxiety Stable, continue to monitor. No change in regimen. Morbid obesity (CMS/HCC) - continue to monitor weight - encouraged continued lifestyle modifications - rx for adipex sent BMI 36 documented in this encounter [facility] 06-08-2024 History of Presen t illness Narrative Images from the original note were not included. Subjective Patient ID: Mayte Potts is a 44 y.o. female who presents for Med Refill. HPI Pt here for follow up. Mood - doing well on current regimen w/o side effects. Helping to control her symptoms during increased periods of anxiety. Continues to work on lifestyle modifications including diet and exercise Review of Systems General: Denies fever, chills CV: Denies CP, palpitations or swelling in legs Resp: denies cough, SOB or wheezing GI: Denies abd pain/n/v/c/d Skin: Denies rash Neuro: Denies LH or dizziness Objective Blood pressure 120/80, pulse 79, temperature 98 F, height 5' 3 , weight 211 lb, SpO2 99%. Body mass index is 37.38 kg/m . Physical Exam General: alert & oriented, NAD Head: NC/AT Oral Cavity: MMM Skin: warm, dry Heart: RRR, No m/r/g, S1S2 nml Lungs: CTA b/l Abdomen: soft, ND/NT, BS wnl Musculoskeletal: normal gait Extremities: no clubbing, cyanosis or edema Neurological: nonfocal Psych: mood/affect full range Assessment/Plan Mayte was seen today for med refill. Diagnoses and all orders for this visit: Chronic GERD (Primary) Stable, continue to monitor. No change in regimen. Panic attacks (CMS/HCC) - ALPRAZolam (Xanax) 1 MG tablet; Take 1 tablet (1 mg) by mouth in the morning and 1 tablet (1 mg) before bedtime. Stable, continue to monitor. No change in regimen. Anxiety - ALPRAZolam (Xanax) 1 MG tablet; Take 1 tablet (1 mg) by mouth in the morning and 1 tablet (1 mg) before bedtime. Stable, continue to monitor. No change in regimen. Morbid obesity (CMS/HCC) - continue to monitor weight - encouraged continued lifestyle modifications - rx for adipex sent BMI 37 documented in this encounter [facility] 05-05-2024 History of Presen t illness Narrative Subjective Patient ID: Mayte Contreras is a 44 y.o. female. They present today with a chief complaint of UTI (Burning with urination, started yesterday ). History of Present Illness Patient is a 44 y/o female c/o urinary burning, urgency, frequency x2 days. Patient denies symptoms of hematuria, flank pain, pelvic pressure, vaginal discharge/irritation, fever, chills, bodyaches, lethargy, weakness, chest pain/tightness/pressure, SOB, wheezing, N/V/D, ABD pain. No OTC medication reported to be taken. Patient completed course of Macrobid x1 month prior to UTI; culture unable to isolate a single bacterial etiology. UTI Past Medical History Allergies as of 05/05/2024 - Reviewed 05/05/2024 Allergen Reaction Noted Sulfa (sulfonamide antibiotics) Hives 10/11/2018 (Not in a hospital admission) History reviewed. No pertinent past medical history. History reviewed. No pertinent surgical history. reports that she has never smoked. She has never used smokeless tobacco. Review of Systems Review of Systems Constitutional: Negative. HENT: Negative. Eyes: Negative. Respiratory: Negative. Cardiovascular: Negative. Gastrointestinal: Negative. Endocrine: Negative. Genitourinary: Positive for dysuria, frequency and urgency. Musculoskeletal: Negative. Skin: Negative. Allergic/Immunologic: Negative. Neurological: Negative. Hematological: Negative. Psychiatric/Behavioral: Negative. Objective Vitals: 05/05/24 1134 BP: 124/83 Pulse: 73 Resp: 16 Temp: 36.6 C (97.8 F) SpO2: 95% Weight: 93 kg (205 lb) No LMP recorded. Physical Exam Constitutional: Comments: Patient A/O x4, LOC 5, calm and cooperative. Patient self-ambulatory to treatment area and is in no acute distress. HENT: Head: Normocephalic and atraumatic. Nose: Nose normal. Eyes: Extraocular Movements: Extraocular movements intact. Conjunctiva/sclera: Conjunctivae normal. Pupils: Pupils are equal, round, and reactive to light. Cardiovascular: Rate and Rhythm: Normal rate and regular rhythm. Pulses: Normal pulses. Heart sounds: Normal heart sounds. Pulmonary: Effort: Pulmonary effort is normal. Breath sounds: Normal breath sounds. Abdominal: General: Abdomen is flat. Palpations: Abdomen is soft. Genitourinary: Comments: Negative CV tenderness to percussion bilaterally. UA with 2+ leukocutes, + nitrites, + urobilinogenuria, + hematuria, +1 bilirubinuria. Negative urine HCG Musculoskeletal: General: Normal range of motion. Cervical back: Neck supple. Skin: General: Skin is warm and dry. Capillary Refill: Capillary refill takes less than 2 seconds. Neurological: General: No focal deficit present. Mental Status: She is oriented to person, place, and time. Psychiatric: Mood and Affect: Mood normal. Behavior: Behavior normal. Procedures Point of Care Test & Imaging Results from this visit Results for orders placed or performed in visit on 05/05/24 POCT UA Automated manually resulted Result Value Ref Range POC Color, Urine Other (A) Straw, Yellow, Light-Yellow POC Appearance, Urine Clear Clear POC Glucose, Urine NEGATIVE NEGATIVE mg/dl POC Bilirubin, Urine SMALL (1+) (A) NEGATIVE POC Ketones, Urine NEGATIVE NEGATIVE mg/dl POC Specific Kellogg, Urine 1.010 1.005 - 1.035 POC Blood, Urine TRACE-Intact (A) NEGATIVE POC PH, Urine 6.0 No Reference Range Established PH POC Protein, Urine NEGATIVE NEGATIVE mg/dl POC Urobilinogen, Urine 1.0 0.2, 1.0 EU/DL Poc Nitrite, Urine POSITIVE (A) NEGATIVE POC Leukocytes, Urine MODERATE (2+) (A) NEGATIVE POCT , urine manually resulted Result Value Ref Range Preg Test, Ur Negative Negative No results found. Diagnostic study results (if any) were reviewed by JADON Amor. Assessment/Plan Allergies, medications, history, and pertinent labs/EKGs/Imaging reviewed by JADON Amor. Medical Decision Making Will treat acute cystitis with hematuria with Augmentin; patient on Macrobid x1 month prior and has allergy to Sulfa. Will send Pyridium for symptom support. Will send urine culture for C&S At time of discharge, patient was clinically well-appearing and appropriate for outpatient management. The patient/parent/guardian was educated regarding diagnosis, supportive care, OTC and Rx medications. The patient/parent/guardian was given the opportunity to ask questions prior to discharge. They verbalized understanding of discussion of treatment plan, expected course of illness and/or injury, indications on when to return to , when to seek further evaluation in ED/call 911, and the need to follow up with PCP and/or specialist as referred. Patient/parent/guardian was provided with work/school documentation if requested. Patient stable upon discharge. Orders and Diagnoses Diagnoses and all orders for this visit: Acute cystitis with hematuria - amoxicillin-pot clavulanate (Augmentin) 875-125 mg tablet; Take 1 tablet by mouth twice daily x7 days. Take with food - phenazopyridine (Pyridium) 100 mg tablet; Take 1 tablet (100mg) by mouth three times daily after meals as needed for urinary burning. Will turn urine orange/red in color - Urine Culture Dysuria - POCT UA Automated manually resulted - POCT , urine manually resulted Medical Admin Record Patient disposition: Home documented in this encounter [facility] Work Phone: 04-11-2024 Telephone encounter Note Rx sent [facility] 04-11-2024 Miscellaneous Notes Rx sent PT call and said some of her meds that were sent in after her appointment have not been received to [facility]. She stated it was the face meds, she said they were oral, and topical cream. Dicyclomine She wasn't sure on the names documented in this encounter [facility] 04-11-2024 Telephone encounter Note PT call and said some of her meds that were sent in after her appointment have not been received to [facility]. She stated it was the face meds, she said they were oral, and topical cream. Dicyclomine She wasn't sure on the names [facility] 04-10-2024 History of Presen t illness Narrative Images from the original note were not included. Subjective Patient ID: Mayte Potts is a 44 y.o. female who presents for Med Refill. HPI Pt here for follow up. Mood - doing well on current regimen w/o side effects. Helping to control her symptoms during increased periods of anxiety. Continues to work on lifestyle modifications including diet and exercise Review of Systems General: Denies fever, chills CV: Denies CP, palpitations or swelling in legs Resp: denies cough, SOB or wheezing GI: Denies abd pain/n/v/c/d Skin: Denies rash Neuro: Denies LH or dizziness Objective Blood pressure 118/60, pulse 74, temperature 97.7 F, temperature source Temporal, height 5' 3 , weight 205 lb 9.6 oz, SpO2 97%. Body mass index is 36.42 kg/m . Physical Exam General: alert & oriented, NAD Head: NC/AT Oral Cavity: MMM Skin: warm, dry Heart: RRR, No m/r/g, S1S2 nml Lungs: CTA b/l Abdomen: soft, ND/NT, BS wnl Musculoskeletal: normal gait Extremities: no clubbing, cyanosis or edema Neurological: nonfocal Psych: mood/affect full range Assessment/Plan Mayte was seen today for med refill. Diagnoses and all orders for this visit: Chronic GERD (Primary) Stable, continue to monitor. No change in regimen. Panic attacks (CMS/HCC) - ALPRAZolam (Xanax) 1 MG tablet; Take 1 tablet (1 mg) by mouth in the morning and 1 tablet (1 mg) before bedtime. Stable, continue to monitor. No change in regimen. Anxiety - ALPRAZolam (Xanax) 1 MG tablet; Take 1 tablet (1 mg) by mouth in the morning and 1 tablet (1 mg) before bedtime. Stable, continue to monitor. No change in regimen. Morbid obesity (CMS/HCC) - continue to monitor weight - encouraged continued lifestyle modifications BMI 36.0-36.9,adult documented in this encounter [facility] 03-30-2024 History of Presen t illness Narrative Subjective Patient ID: Mayte Contreras is a 44 y.o. female. They present today with a chief complaint of Urinary Problem (Uti symptoms x 1 day). History of Present Illness 44-year-old female presents with 8 hours of acute pelvic pressure dysuria and urinary frequency. Last UTI was 2 years ago. No fever chills no nausea vomit diarrhea, no abdominal or back pain. No vaginal symptoms no new partners. She is status post cholecystectomy and hysterectomy Past Medical History Allergies as of 03/30/2024 - Reviewed 03/30/2024 Allergen Reaction Noted Sulfa (sulfonamide antibiotics) Hives 10/11/2018 (Not in a hospital admission) No past medical history on file. No past surgical history on file. reports that she has never smoked. She has never used smokeless tobacco. Review of Systems Review of Systems Objective Vitals: 03/30/24 1346 BP: 130/88 Resp: 16 Temp: 36.2 C (97.1 F) Weight: 90.7 kg (200 lb) No LMP recorded. Physical Exam General- No apparent distress, well appearing Cardiovascular- regular rate and rhythm, no gallops, murmurs or rubs Lungs- clear to auscultation bilaterally, no wheezing or rhonchi Abd- soft, NT, ND Procedures Point of Care Test & Imaging Results from this visit No results found for this visit on 03/30/24. No results found. Diagnostic study results (if any) were reviewed by Rick Meza MD. Assessment/Plan Allergies, medications, history, and pertinent labs/EKGs/Imaging reviewed by Rick Meza MD. Medical Decision Making Urinary symptoms-suspect UTI based on history and abnormal urinalysis. Start Macrobid check culture, Pyridium, symptoms follow-up with PCP if not improving Orders and Diagnoses Diagnoses and all orders for this visit: Frequency of urination - POCT UA Automated manually resulted Medical Admin Record Patient disposition: Home documented in this encounter [facility] Work Phone: 03-06-2024 Telephone encounter Note Rx sent [facility] 03-06-2024 Miscellaneous Notes Rx sent Pt called to get Rx sent in for stomach flare-up. States she doesn't remember name of med. Please advise. documented in this encounter [facility] 03-06-2024 Telephone encounter Note Pt called to get Rx sent in for stomach flare-up. States she doesn't remember name of med. Please advise. [facility] 01-20-2024 History of Presen t illness Narrative Subjective Patient ID: Mayte Potts is a 43 y.o. female who presents for Annual Exam and Med Refill. HPI Pt here for follow up. Weight - Has been taking adipex since the last appt. Is also start tirzepatide injections. Is tolerating well w/o side effects. Is continuing to work on lifestyle modifications including diet and exercise. Panic - xanax is helping. Denies side effects. Does have some anxiety. Review of Systems General: Denies fever, chills fatigue, [place] CV: Denies CP, palpitations or swelling in legs Resp: denies cough, SOB or wheezing GI: Denies abd pain/n/v/c/d Skin: Denies rash Neuro: Denies LH or dizziness Objective Blood pressure 120/80, pulse 70, temperature 98.2 F, height 5' 3 , weight 202 lb 12.8 oz, SpO2 97%. Body mass index is 35.92 kg/m . Physical Exam General: alert & oriented, NAD Head: NC/AT Oral Cavity: MMM Skin: warm, dry Heart: RRR, No m/r/g, S1S2 nml Lungs: CTA b/l Abdomen: soft, ND/NT, BS wnl Musculoskeletal: normal gait Extremities: no clubbing, cyanosis or edema Neurological: nonfocal Psych: mood/affect full range Assessment/Plan Mayte was seen today for annual exam and med refill. Diagnoses and all orders for this visit: Annual physical exam (Primary) - Reviewed hx and meds - Discussed preventative care Anxiety Stable, continue to monitor. No change in regimen. Panic attacks (CMS/HCC) Stable, continue to monitor. No change in regimen. BMI 35.0-35.9,adult Morbid obesity (CMS/HCC) - continue to monitor weight - encouraged continued lifestyle modifications - continue injections Screening for metabolic disorder - CBC and differential; Future - Comprehensive metabolic panel; Future - TSH W/REFLEX TO FT4; Future - CBC and differential - Comprehensive metabolic panel - TSH W/REFLEX TO FT4 Screening for hyperlipidemia - Lipid panel; Future - Lipid panel documented in this encounter [facility] 09-02-2023 Note HNO ID: [id number] Author: ANAHI MICHEL MD Service: ? Author Type: Physician Type: Progress Notes Filed: 09/02/2023 15:48 Note Text: PROGRESS NOTES PATIENT NAME: Mayte Potts Assessment ASSESSMENT AND PLAN The patient is a 43-year-old female status post a laparoscopic cholecystectomy earlier this week. I reassured her that the pain and appearance her incisions are pretty normal after her very recent surgery. I stated that she should be beginning to feel much better in the next couple of days. Follow-up will be as previously scheduled in about 2 weeks. I recommend that she call me sooner if any issues or problems arise. She is agreeable to this plan. SUBJECTIVE CHIEF COMPLAINT: Patient presents with: Post Op: Cholecystectomy 08/30/2023 INTERVAL HISTORY OF PRESENT ILLNESS: The patient is a 43-year-old female status post a recent cholecystectomy actually performed earlier this week. She states that she had some pain up near the epigastric trocar site. She was concerned about possible infection given the pain and she thought that the incision may be slightly open. She presents today for evaluation. HISTORIES: PAST MEDICAL HISTORY Diagnosis Date Anxiety 01/01/2020 Class 2 obesity without serious comorbidity with body mass index (BMI) of 38.0 to 38.9 in adult 01/01/2020 Depression 01/01/2020 PAST SURGICAL HISTORY Procedure Laterality Date BREAST REDUCTION COLONOSCOPY SCREENING 12/2022 Dr. Olivera EGD W/O [facility] SPEC VARICIES INJ 02/2023 Dr. Olivera HYSTERECTOMY HX L'SCOPE CHOLECYSTECTOMY 08/30/2023 ALLERGIES: Sulfa (Sulfonamide Antibiotics) MEDICATIONS: Current Outpatient Medications Medication Sig oxyCODONE-acetaminophen (PERCOCET) 5-325 mg tablet Take 1 tablet by mouth every 6 hours as needed for pain for up to 7 days. semaglutide (OZEMPIC) 0.25 mg or 0.5 mg (2 mg/3 mL) pen every week ALPRAZolam (XANAX) 1 mg tablet TAKE 1 TABLET (1 MG) BY MOUTH IN THE MORNING AND 1 TABLET (1 MG) BEFORE BEDTIME. valACYclovir (VALTREX) 1 gram tablet Take 1 tablet by mouth every afternoon. pantoprazole DR (PROTONIX) 40 mg tablet Take 40 mg by mouth daily before breakfast. ondansetron orally disintegrating (ZOFRAN ODT) 4 mg disintegrating tablet LINZESS 145 mcg capsule take 1 capsule by mouth every day before breakfast keTORolac (TORADOL) 10 mg tablet as needed. hyoscyamine SR (LEVBID) 0.375 mg 12 hr tablet TAKE 1 TABLET BY MOUTH 3 TIMES A DAY BEFORE MEALS famotidine (PEPCID) 40 mg tablet Take 40 mg by mouth daily at bedtime. dicyclomine (BENTYL) 20 mg tablet as directed. buPROPion XL (WELLBUTRIN XL) 150 mg 24 hr tablet Take 1 tablet by mouth every afternoon. No current facility-administered medications for this visit. FAMILY HISTORY Problem Relation Age of Onset Obesity Paternal Grandmother Obesity Paternal Grandfather Social History Tobacco Use Smoking status: Never Smokeless tobacco: Never Vaping Use Vaping Use: Never used Substance Use Topics Alcohol use: Never Drug use: Never OBJECTIVE PHYSICAL EXAM: There were no vitals taken for this visit. GENERAL: Alert, no distress, cooperative ABDOMEN: Incisions appear pretty typical for 3 days after surgery. I do not see any open incisions. No signs of erythema or infection. She has some mild typical bruising and soreness. DATA: Diagnostic tests reviewed for today's visit: No new labs Anahi Michel MD [facility] 09-02-2023 History of Presen t illness Narrative PROGRESS NOTES PATIENT NAME: Mayte Potts Assessment ASSESSMENT AND PLAN The patient is a 43-year-old female status post a laparoscopic cholecystectomy earlier this week. I reassured her that the pain and appearance her incisions are pretty normal after her very recent surgery. I stated that she should be beginning to feel much better in the next couple of days. Follow-up will be as previously scheduled in about 2 weeks. I recommend that she call me sooner if any issues or problems arise. She is agreeable to this plan. SUBJECTIVE CHIEF COMPLAINT: Patient presents with: Post Op: Cholecystectomy 08/30/2023 INTERVAL HISTORY OF PRESENT ILLNESS: The patient is a 43-year-old female status post a recent cholecystectomy actually performed earlier this week. She states that she had some pain up near the epigastric trocar site. She was concerned about possible infection given the pain and she thought that the incision may be slightly open. She presents today for evaluation. HISTORIES: PAST MEDICAL HISTORY Diagnosis Date Anxiety 01/01/2020 Class 2 obesity without serious comorbidity with body mass index (BMI) of 38.0 to 38.9 in adult 01/01/2020 Depression 01/01/2020 PAST SURGICAL HISTORY Procedure Laterality Date BREAST REDUCTION COLONOSCOPY SCREENING 12/2022 Dr. Olivera EGD W/[facility] SPEC VARICIES INJ 02/2023 Dr. Olivera HYSTERECTOMY HX L'SCOPE CHOLECYSTECTOMY 08/30/2023 ALLERGIES: Sulfa (Sulfonamide Antibiotics) MEDICATIONS: Current Outpatient Medications Medication Sig oxyCODONE-acetaminophen (PERCOCET) 5-325 mg tablet Take 1 tablet by mouth every 6 hours as needed for pain for up to 7 days. semaglutide (OZEMPIC) 0.25 mg or 0.5 mg (2 mg/3 mL) pen every week ALPRAZolam (XANAX) 1 mg tablet TAKE 1 TABLET (1 MG) BY MOUTH IN THE MORNING AND 1 TABLET (1 MG) BEFORE BEDTIME. valACYclovir (VALTREX) 1 gram tablet Take 1 tablet by mouth every afternoon. pantoprazole DR (PROTONIX) 40 mg tablet Take 40 mg by mouth daily before breakfast. ondansetron orally disintegrating (ZOFRAN ODT) 4 mg disintegrating tablet LINZESS 145 mcg capsule take 1 capsule by mouth every day before breakfast keTORolac (TORADOL) 10 mg tablet as needed. hyoscyamine SR (LEVBID) 0.375 mg 12 hr tablet TAKE 1 TABLET BY MOUTH 3 TIMES A DAY BEFORE MEALS famotidine (PEPCID) 40 mg tablet Take 40 mg by mouth daily at bedtime. dicyclomine (BENTYL) 20 mg tablet as directed. buPROPion XL (WELLBUTRIN XL) 150 mg 24 hr tablet Take 1 tablet by mouth every afternoon. No current facility-administered medications for this visit. FAMILY HISTORY Problem Relation Age of Onset Obesity Paternal Grandmother Obesity Paternal Grandfather Social History Tobacco Use Smoking status: Never Smokeless tobacco: Never Vaping Use Vaping Use: Never used Substance Use Topics Alcohol use: Never Drug use: Never OBJECTIVE PHYSICAL EXAM: There were no vitals taken for this visit. GENERAL: Alert, no distress, cooperative ABDOMEN: Incisions appear pretty typical for 3 days after surgery. I do not see any open incisions. No signs of erythema or infection. She has some mild typical bruising and soreness. DATA: Diagnostic tests reviewed for today's visit: No new labs Anahi Michel MD documented in this encounter [facility] 09-02-2023 Miscellaneous Notes Spoke with patient and scheduled her an appointment to see Dr. Michel today in [place]. Sent MCM re: patient concern Patient called and wants Dr. Michel to look at her stitches? I though maybe you could access the situation. 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 Staffing RAISE DRILL OPERATOR: Juju Hi APRN.RAISE DRILL OPERATOR Performed by: IBRAHIMA Indications and Patient Condition Indications for airway management: anesthesia Preoxygenated: yes anesthesia circuit Patient position: sniffing Method: rapid sequence Cricoid Pressure: Yes Final Airway Details Final airway type: endotracheal airway Final Endotracheal Airway: ETT Cuffed: yes Successful intubation technique: direct laryngoscopy Devices used: intubating stylet Endotracheal tube insertion site: oral Blade: Charlene Blade size: #3 ETT size (mm): 7.0 Measured from: lips Measurement (cm): 22 Placement verified by: chest auscultation and capnometry Cormack-Lehane Classification: grade I - full view of glottis Number of attempts at approach: 1 SIGNATURE: Juju Hi APRN.CRNA PATIENT NAME: Mayte Potts DATE: August 30, 2023 TIME: 9:53 AM CSN: [id number] [facility] 08-25-2023 Miscellaneous Notes [facility] paper work filled out and signed by Provider. Reviewed with patient. Faxed to [facility]. Confirmation received. Records sent to be scanned to chart. Encounter closed. documented in this encounter [facility] 08-25-2023 Note HNO ID: [id number] Author: ANAHI MICHEL MD Service: ? Author Type: Physician Type: Progress Notes Filed: 08/25/2023 16:07 Note Text: PROGRESS NOTES PATIENT NAME: Mayte Potts Assessment ASSESSMENT AND PLAN Patient is a 43-year-old female with right upper quadrant pain and gallstones. I do believe that her symptoms are likely biliary colic in nature. I recommended a laparoscopic cholecystectomy as treatment. We discussed the details of the planned procedure including the risks benefits and alternatives. She wishes to proceed. This will be scheduled in a timely manner. SUBJECTIVE CHIEF COMPLAINT: Patient presents with: Consult: gallstones INTERVAL HISTORY OF PRESENT ILLNESS: Patient is a 43-year-old female who was recently in the emergency room at [facility] in [place] with abdominal pain. She underwent ultrasound and CT scan that showed gallstones but no gallbladder wall thickening. She was discharged home. She states she is still having some persistent upper right abdominal pain along with nausea and bloating as well as nausea. She does feel that her symptoms seem to be worse after eating. HISTORIES: PAST MEDICAL HISTORY Diagnosis Date Anxiety 01/01/2020 Class 2 obesity without serious comorbidity with body mass index (BMI) of 38.0 to 38.9 in adult 01/01/2020 Depression 01/01/2020 PAST SURGICAL HISTORY Procedure Laterality Date BREAST REDUCTION COLONOSCOPY SCREENING 12/2022 Dr. Olivera EGD [facility] SPEC VARICIES INJ 02/2023 Dr. Olivera HYSTERECTOMY HX ALLERGIES: Sulfa (Sulfonamide Antibiotics) MEDICATIONS: Current Outpatient Medications Medication Sig semaglutide (OZEMPIC) 0.25 mg or 0.5 mg (2 mg/3 mL) pen every week ALPRAZolam (XANAX) 1 mg tablet TAKE 1 TABLET (1 MG) BY MOUTH IN THE MORNING AND 1 TABLET (1 MG) BEFORE BEDTIME. valACYclovir (VALTREX) 1 gram tablet Take 1 tablet by mouth every afternoon. pantoprazole DR (PROTONIX) 40 mg tablet Take 40 mg by mouth daily before breakfast. ondansetron orally disintegrating (ZOFRAN ODT) 4 mg disintegrating tablet LINZESS 145 mcg capsule take 1 capsule by mouth every day before breakfast keTORolac (TORADOL) 10 mg tablet as needed. hyoscyamine SR (LEVBID) 0.375 mg 12 hr tablet TAKE 1 TABLET BY MOUTH 3 TIMES A DAY BEFORE MEALS famotidine (PEPCID) 40 mg tablet Take 40 mg by mouth daily at bedtime. dicyclomine (BENTYL) 20 mg tablet as directed. buPROPion XL (WELLBUTRIN XL) 150 mg 24 hr tablet Take 1 tablet by mouth every afternoon. No current facility-administered medications for this visit. FAMILY HISTORY Problem Relation Age of Onset Obesity Paternal Grandmother Obesity Paternal Grandfather Social History Tobacco Use Smoking status: Never Smokeless tobacco: Never Vaping Use Vaping Use: Never used Substance Use Topics Alcohol use: Never Drug use: Never OBJECTIVE PHYSICAL EXAM: BP 134/88 Pulse 77 Ht 5' 3 (1.60m) Wt 211 lb (95.7kg) BMI 37.39 kg/(m2). GENERAL: Alert, no distress, cooperative ABDOMEN: Mild right upper quadrant tenderness to palpation. DATA: Diagnostic tests reviewed for today's visit: Most recent labs and imaging results. Anahi Michel MD [facility] 08-25-2023 History of Presen t illness Narrative PROGRESS NOTES PATIENT NAME: Mayte Potts Assessment ASSESSMENT AND PLAN Patient is a 43-year-old female with right upper quadrant pain and gallstones. I do believe that her symptoms are likely biliary colic in nature. I recommended a laparoscopic cholecystectomy as treatment. We discussed the details of the planned procedure including the risks benefits and alternatives. She wishes to proceed. This will be scheduled in a timely manner. SUBJECTIVE CHIEF COMPLAINT: Patient presents with: Consult: gallstones INTERVAL HISTORY OF PRESENT ILLNESS: Patient is a 43-year-old female who was recently in the emergency room at [facility] in [place] with abdominal pain. She underwent ultrasound and CT scan that showed gallstones but no gallbladder wall thickening. She was discharged home. She states she is still having some persistent upper right abdominal pain along with nausea and bloating as well as nausea. She does feel that her symptoms seem to be worse after eating. HISTORIES: PAST MEDICAL HISTORY Diagnosis Date Anxiety 01/01/2020 Class 2 obesity without serious comorbidity with body mass index (BMI) of 38.0 to 38.9 in adult 01/01/2020 Depression 01/01/2020 PAST SURGICAL HISTORY Procedure Laterality Date BREAST REDUCTION COLONOSCOPY SCREENING 12/2022 Dr. Olivera EGD [facility] SPEC VARICIES INJ 02/2023 Dr. Olivera HYSTERECTOMY HX ALLERGIES: Sulfa (Sulfonamide Antibiotics) MEDICATIONS: Current Outpatient Medications Medication Sig semaglutide (OZEMPIC) 0.25 mg or 0.5 mg (2 mg/3 mL) pen every week ALPRAZolam (XANAX) 1 mg tablet TAKE 1 TABLET (1 MG) BY MOUTH IN THE MORNING AND 1 TABLET (1 MG) BEFORE BEDTIME. valACYclovir (VALTREX) 1 gram tablet Take 1 tablet by mouth every afternoon. pantoprazole DR (PROTONIX) 40 mg tablet Take 40 mg by mouth daily before breakfast. ondansetron orally disintegrating (ZOFRAN ODT) 4 mg disintegrating tablet LINZESS 145 mcg capsule take 1 capsule by mouth every day before breakfast keTORolac (TORADOL) 10 mg tablet as needed. hyoscyamine SR (LEVBID) 0.375 mg 12 hr tablet TAKE 1 TABLET BY MOUTH 3 TIMES A DAY BEFORE MEALS famotidine (PEPCID) 40 mg tablet Take 40 mg by mouth daily at bedtime. dicyclomine (BENTYL) 20 mg tablet as directed. buPROPion XL (WELLBUTRIN XL) 150 mg 24 hr tablet Take 1 tablet by mouth every afternoon. No current facility-administered medications for this visit. FAMILY HISTORY Problem Relation Age of Onset Obesity Paternal Grandmother Obesity Paternal Grandfather Social History Tobacco Use Smoking status: Never Smokeless tobacco: Never Vaping Use Vaping Use: Never used Substance Use Topics Alcohol use: Never Drug use: Never OBJECTIVE PHYSICAL EXAM: BP 134/88 Pulse 77 Ht 5' 3 (1.60m) Wt 211 lb (95.7kg) BMI 37.39 kg/(m^2). GENERAL: Alert, no distress, cooperative ABDOMEN: Mild right upper quadrant tenderness to palpation. DATA: Diagnostic tests reviewed for today's visit: Most recent labs and imaging results. Anahi Michel MD documented in this encounter [facility] 11-04-2022 Evaluation note Encounter Date Diagnosis Assessment Notes Oct, Obesity (ICD-10 - E66.9) Patient is responding positively to Saxenda most recently restarted within the last week or 2 and is currently up to the 1.2 mg dose tolerating without any adverse side effects. Reinforced that medication is only a tool and that even though she has time constraints with a busy schedule prioritizing meal prep and planning is going to be of utmost importance for continued success. Patient has not had a significant weight loss this is related to delay in starting Saxenda however we did discuss that weight maintenance or minimal gain is a positive thing since she was just coming off of Adipex prior to starting with us last month. Reviewed lab work in office today. Our next goal will be to work on meal prep and planning and pack lunch at least 2 days a week Reinforced teaching of pen and dosing instructions Oct, Irritable bowel syndrome (ICD-10 - K58.9) Oct, Depression (ICD-10 - F32.9) Oct, Daytime sleepiness (ICD-10 - R40.0) Oct, Anxiety (ICD-10 - F41.9) Oct, Panic disorder (ICD-10 - F41.0) Oct, GERD (gastroesophagea l reflux disease) (ICD-10 - K21.9) She denies any worsening of her GERD symptoms since on GLP-1 agonist at appropriate dose. Oct, Transaminitis (ICD-10 - R74.01) We will attempt to add CMP to lab work drawn yesterday that was somehow omitted to assess liver enzymes that have previously been elevated. Oct, Acanthosis nigricans (ICD-10 - L83) Patient is benefiting to fold for both weight loss as well as improved insulin resistance with GLP-1 agonist. Oct, Impaired fasting glucose (ICD-10 - R73.01) Oct, Encounter for weight management (ICD-10 - Z76.89) [facility] Other 06-21-2023 Evaluation note* Encounter Date Diagnosis Assessment Notes Treatment Notes Treatment Clinical Notes Oct, Obesity (ICD-10 - E66.9) Oct, Depression (ICD-10 - F32.9) Oct, Hyperlipidemia, mixed (ICD-10 - E78.2) Oct, Anxiety (ICD-10 - F41.9) Oct, GERD (gastroesophageal reflux disease) (ICD-10 - K21.9) Oct, Acanthosis nigricans (ICD-10 - L83) Oct, Iron (Fe) deficiency anemia (ICD-10 - D50.9) [facility] Other 05-01-2023 Evaluation note* Encounter Date Diagnosis Assessment Notes Treatment Notes Treatment Clinical Notes September, Obesity (ICD-10 - E66.9) Findings consistent with obesity. Patient understands that this increases risk of multiple comorbidities associated with weight gain especially if there is a genetic predisposition. Discussed the complexity behind obesity and its multifactorial causes including genetics, the biological changes that occur with processed foods as well as lack of physical activity. We will assess for underlying causes of abnormal weight gain including thyroid dysfunction, poor sleep, medications, diet, etc. Discussed importance of adopting a healthier lifestyle in order to decrease or eliminate risk of impending diseases associated with excessive weight. Initial goal of modest weight loss approximately 3 to 5% can help to improve risk factors and some comorbidities. Our second goal of 10 to 15% weight loss can result in even more potentially disease modifying, remission, or improved mortality benefits. Initial goals include increasing water intake Strong focus on adding fruits and vegetables to her diet, she consistently gets excess protein with little to no fiber or roughage Work on getting good quality 7 to 9 hours of sleep, strongly consider repeat sleep study We will follow a repeat CMP due to previous elevated ALT Plan to start Wegovy, Saxenda or Ozempic. Consider Mounjaro although questionable if it is covered by her insurance. Could also consider Qsymia although patient has had not had great weight loss results from this most recent round of Adipex. She has failed Contrave due to side effects. Could consider metformin September, Irritable bowel syndrome (ICD-10 - K58.9) We will follow GI specialist treatment plan for her newly diagnosed irritable bowel syndrome. It is likely that her constipation is related to inadequate fruits and vegetables as well as fiber. Is also a strong mind gut connection and patient does have a lot of anxiety as she deals with. September, Depression (ICD-10 - F32.9) Initial PHQ-9 is positive for mild depression with a score of 7. Patient states mood is stable overall today and denies any significant mood swings or depressive thoughts. Continued vigilance throughout our weight loss journey. Patient is to inform provider immediately if any extreme mood changes occur or severe depressive thoughts. Mood can play a role in eating habits, food choices and overall weight regulation. September, Daytime sleepiness (ICD-10 - R40.0) Encouraged good sleep hygiene by going to bed at approximately similar times each night and similar waking hours each day. Encouraged to avoid excessive fluids and eating shortly before bed, turning off blue light on phone/computers, silencing notifications, etc. Fatigue during the day could also be related to poor dietary habits of high glucose or high carbohydrate meals and snacks. Increase water intake. Energy may also be improved by incorporating physical activity into daily routine. September, Anxiety (ICD-10 - F41.9) Anxiety may also be playing a role in patient's quality of life as well as sleep quality as she is waking up in the middle of the night with anxious thoughts surrounding work. September, Panic disorder (ICD-10 - F41.0) September, GERD (gastroesophageal reflux disease) (ICD-10 - K21.9) Patient does suffer from GERD likely related to/ exacerbated by increased weight. Treat with weight loss and dietary changes. With moderate weight loss patient could achieve complete relief from GERD symptoms due to increased intraabdominal pressure. Could consider goal of being weaned off of medication after consideration to any other underlying etiologies/treatmen t. Patient to work closely with dietitian to help make healthy dietary choices and avoid reflux- inducing foods. Briefly discussed these including avoiding citrus, high fat dairy, high fat meats and carbonated beverages, alcohol and coffee. September, Transaminitis (ICD-10 - R74.01) AST in the 30s and ALT 60 which could represent underlying inflammation of the liver. We do not have a lipid panel to look for underlying fatty liver disease which patient is open to obtaining labs. September, Acanthosis nigricans (ICD-10 - L83) It appears patient has mild acanthosis nigricans which is most indicative of insulin resistance consider metabolic syndrome. Patient understands that metabolic syndrome increases the risk of diabetes and heart disease. Treat with long-term healthy lifestyle changes, behavioral changes, healthy nutritional changes, increase activity and exercise and achieve long-term weight loss goals. September, Impaired fasting glucose (ICD-10 - R73.01) [email or web address] Other Evaluation noteNo Information[email or web address] Other Evaluation noteNo assessment information [facility] Work Phone: Evaluation note* Diagnosis Gallstones- Primary Calculus of gallbladder without mention of cholecystitis or obstruction [facility] Diagnosis Gallstones- Primary Calculus of gallbladder without mention of cholecystitis or obstruction [facility] Diagnosis Irritable bowel syndrome with diarrhea- Primary Irritable bowel syndrome documented in this encounter [facility]* Diagnosis Urinary tract infection without hematuria, site unspecified- Primary Frequency of urination Urinary frequency documented in this encounter [facility] Work Phone: Evaluation note* Diagnosis Chronic GERD- Primary Panic attacks (CMS/HCC) Panic disorder without agoraphobia Anxiety Anxiety state, unspecified Morbid obesity (CMS/HCC) Morbid obesity BMI 36.0-36.9,adult documented in this encounter [facility]* Diagnosis Acne vulgaris- Primary Other acne Irritable bowel syndrome with diarrhea Irritable bowel syndrome documented [facility]* Diagnosis Annual physical exam- Primary Routine general medical examination at a health care facility Anxiety Anxiety state, unspecified Panic attacks (CMS/HCC) Panic disorder without agoraphobia BMI 35.0-35.9,adult Morbid obesity (CMS/HCC) Morbid obesity Screening for metabolic disorder Screening for hyperlipidemia Screening for lipoid disorders documented [facility]* Diagnosis Acute cystitis with hematuria- Primary Dysuria documented in this encounter [facility] Work Phone: Evaluation note* Diagnosis Recurrent cold sores Herpes simplex without mention of complication [facility]* Diagnosis Panic attacks (CMS/HCC) Panic disorder without agoraphobia Anxiety Anxiety state, unspecified documented [facility]* Diagnosis Chronic GERD- Primary Panic attacks (CMS/HCC) Panic disorder without agoraphobia Anxiety Anxiety state, unspecified Morbid obesity (CMS/HCC) Morbid obesity BMI 37.0-37.9, adult documented [facility]* Diagnosis Chronic GERD- Primary Panic attacks (CMS/HCC) Panic disorder without agoraphobia Anxiety Anxiety state, unspecified Morbid obesity (CMS/HCC) Morbid obesity BMI 36.0-36.9,adult documented [facility]* Diagnosis Chronic GERD- Primary Panic attacks (CMS/HCC) Panic disorder without agoraphobia Anxiety Anxiety state, unspecified BMI 34.0-34.9,adult Obesity (BMI 30.0-34.9) Recurrent cold sores Herpes simplex without mention of complication Sinus pressure Other diseases of nasal cavity and sinuses documented [facility] N[facility]ative - Reported* Type Description Date Medical History Panic Disorder Medical History Anxiety Medical History Depression Medical History Irritable Bowel Syndrome Medical History GERD Surgical History Leon teeth Surgical History Breast reduction 2007 Surgical History Hysterectomy 2017 Hospitalization History See above [facility] Other Hospital Discharge instructions Additional Instructions May take the Zofran every 8 hours for a nausea vomiting May take the dicyclomine 3 times a day as needed for abdominal pain Take the ketorolac every 6 hours for pain take with food [address] diet Increase oral fluids Follow-up with family doctor I also referred you to general surgery and gastroenterology Return to the ER for severe pain high fever vomiting or any other concerns [facility] Work Phone: History of Present Illness * Georgia Gregg MD - 07/18/2019 10:00 AM EST Subjective: Mayte Contreras is an 39 y.o. female who presents for evaluation of several lesions of her abdomen chest and neck. Additionally she has questions regarding body contouring procedures. Allergies Allergen Reactions Sulfa Antibiotics Current Outpatient Medications Medication Sig Dispense Refill FLUoxetine (PROzac) 40 MG capsule Take 40 mg by mouth daily. lansoprazole (Prevacid) [address] capsule Take 30 mg by mouth daily. No current facility-administered medications for this visit. No past medical history on file. Past Surgical History: Procedure Laterality Date REDUCTION MAMMOPLASTY Bilateral 2009 HYSTERECTOMY [id number] Family History Problem Relation Age of Onset Breast Cancer Paternal Grandmother 70 Ovarian Cancer Neg Hx Uterine Cancer Neg Hx Social History Socioeconomic History Marital status: Spouse name: Not on file Number of children: Not on file Years of education: Not on file Highest education level: Not on file Occupational History Not on file Social Needs Financial resource strain: Not on file Food insecurity Worry: Not on file Inability: Not on file Transportation needs Medical: Not on file Non-medical: Not on file Tobacco Use Smoking status: Never Smoker Smokeless tobacco: Never Used Substance and Sexual Activity Alcohol use: Not on file Drug use: Not on file Sexual activity: Not on file Lifestyle Physical activity Days per week: Not on file Minutes per session: Not on file Stress: Not on file Relationships Social connections Talks on phone: Not on file Gets together: Not on file Attends moravian service: Not on file Active member of club or organization: Not on file Attends meetings of clubs or organizations: Not on file Relationship status: Not on file Intimate partner violence Fear of current or ex partner: Not on file Emotionally abused: Not on file Physically abused: Not on file Forced sexual activity: Not on file Other Topics Concern Not on file Social History Narrative Not on file Review of Systems Pertinent items are noted in HPI. General Plastics Review of Systems: Do you have any of the following: Chills, Fatigue, Fever or Night Sweats: no. Ear pain or eye discharge: no. Hearing loss or visual changes: no. Sore throat or chronic cough: no. Shortness of breath: no. Chest pain, swelling, or heart palpitations: no. Abdominal pain: no. Constipation or diarrhea: no. Heartburn or Nausea: no. Rash or skin problems: no. Dizziness or numbness: no. Headaches or Migraines: no. Seizures: no. Joint pain, joint swelling or muscle weakness: no. Bruise or bleed easily: no. Any swollen lymph nodes: no. Objective: Blood pressure (!) 137/93, pulse 84, height 1.651 m (5' 5 ), weight 99.6 kg (219 lb 8 oz). General: alert, cooperative, no distress, appears stated age Skin: Pigmented lesion of right lower breast and mid chest which are exophytic and irritated. She has an exophytic irritated lesion of the left neck Eyes: conjunctivae/corneas clear. PERRL, EOM's intact. Mouth: no lesions Lymph Nodes: Cervical, supraclavicular, and axillary nodes normal. Lungs: clear to auscultation bilaterally Heart: regular rate and rhythm, S1, S2 normal, no murmur Abdomen: soft, non-tender. No masses, no organomegaly Extremities: extremities normal, atraumatic, no edema Neurologic: negative Psychiatric: non focal. Judgement and Affect WNL. Assessment: Lesion of abdomen chest and neck Plan: The procedure for excision / biopsy was reviewed with the patient. Alternatives and risks were also reviewed. (these include but are not exclusive of scar tissue, tenderness, and potential need for further surgery.) The specimen will be evaluated by pathology. The patient is aware of the potential need for further surgery depending on the results. We will SCHEDULE THE PROCEDURE in the near future. SURGERY TO BE SCHEDULED FOLLOWS: ANESTHESIA: Local PROCEDURE: 1. Shave lesion right upper abdomen 2 . Excision lesion mid chest 3. Excision lesion left neck I have also given her literature on bariatric procedures as well as skin contouring procedures Abi Monson - 07/18/2019 10:00 AM EST General Plastics Review of Systems: Do you have any of the following: Chills, Fatigue, Fever or Night Sweats: no. Ear pain or eye discharge: no. Hearing loss or visual changes: no. Sore throat or chronic cough: no. Shortness of breath: no. Chest pain, swelling, or heart palpitations: no. Abdominal pain: no. Constipation or diarrhea: no. Heartburn or Nausea: no. Rash or skin problems: no. Dizziness or numbness: no. Headaches or Migraines: no. Seizures: no. Joint pain, joint swelling or muscle weakness: no. Bruise or bleed easily: no. Any swollen lymph nodes: no. documented in this encounter Assessments Diagnosis Neoplasm of uncertain behavior of skin Localized adiposity Atrophic skin Other specified hypertrophic and atrophic condition of skin Summary Purpose Family History Relationship Condition Age at Onset Recorded Date/T tati father Malignant neoplasm Unknown Family history of mental disorder Unknown grandparent Malignant neoplasm of breast Unknown Unknown Not Specified Family history of mental disorder Unknow n Advance Directives Advance Directive Response Recorded Date/ Time Advance Directives No September 14, 2022 7:25am Chief Complaint and Reason for Visit Chief Complaint nausea, abd pain Additional Source Comments Reason for Visit (unrecogniz ed section and content) Reason Comments Skin Lesion Lesions x2 Rt breast . Pt states that the lateral lesion gets irritated by bra. Skin Lesion Skin tags on neck. G et irritated by necklaces. Reason Comments FMLA Paperwork Reason Comments Consult gallstones Reason Comments Post Op Cholecystectomy 08/29 Reason Onset Date Comments Medication Question 03/06/2024 Reason Comments Urinary Problem Uti symptoms x 1 day Reason Comments Med Refill Reason Onset Date Comments Medication Question 04/11/2024 Reason Comments Annual Exam Med Refill Reason Comments UTI Burning with urinati on, started yesterday Reason Onset Date Comments Med Refill 05/25/2024 Reason Comments Med Review Reason Comments Med Refill Sinusitis INFORMATION SOURCE (unrecogn ized section and content) DATE CREATED AUTHOR 06/13/2022 [facility] DATE CREATED AUTHOR AUTHOR'S ORGANIZ ATION 09/03/2023 [facility] DATE CREATED AUTHOR AUTHOR'S ORGANIZ ATION 09/03/2023 [facility] DATE CREATED AUTHOR AUTHOR'S ORGANIZ ATION 01/23/2024 [employer] [facility] DATE CREATED AUTHOR AUTHOR'S ORGANIZ ATION 01/24/2024 [employer] [facility] DATE CREATED AUTHOR AUTHOR'S ORGANIZ ATION 01/29/2024 [facility] DATE CREATED AUTHOR AUTHOR'S ORGANIZ ATION 05/03/2024 [facility] DATE CREATED AUTHOR AUTHOR'S ORGANIZ ATION 07/01/2024 [facility] EPIC Care Teams (unrecognized sec tion and content) Team Status: Active Member Role Status Dates Teto Pandey DO Primary Care Provider Active Team Status: Inactive Member Role Status Dates Teto Pandey DO Primary Care Provider Active Start: August 22, 2023 End: August 22, [address] [facility]- Emergency Provider Active Start: August 22, 2023 End: August 22, 2023 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 Start Date End Date Norma Pandey MD [address] [place] [address] PCP - General Family Medicine 12/05/21 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 Start Date End Date Norma Pandey MD [address] [place] [address] PCP - General Family Medicine 12/05/21 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 Start Date End Date Norma Pandey MD [address] [place] [address] PCP - General Family Medicine 12/05/21 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 Start Date End Date Norma Pandey MD [address] [place] [address] PCP - Medical [employer] 07/16/19 05/16/99 Norma Pandey MD [address] [place] [address] PCP - General Family Medicine 09/22/22 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 Start Date End Date Norma Pandey MD [address] [place] [address] PCP - Medical [employer] 07/16/19 05/16/99 Norma Pandey MD [address] [place] [address] PCP - General Family Medicine 09/22/22 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 Start Date End Date Norma Pandey MD [address] [place] [address] PCP - Medical [employer] 07/16/19 05/16/99 Norma Pandey MD [address] [place] [address] PCP - General Family Medicine 09/22/22 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 Start Date End Date Norma Pandey MD [address] [place] [address] PCP - Medical [employer] 07/16/19 05/16/99 Norma Pandey MD [address] [place] [address] PCP - General Family Medicine 09/22/22 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 Start Date End Date Norma Pandey MD [address] [place] [address] PCP - Medical [employer] 07/16/19 05/16/99 Norma Pandey MD [address] [place] [address] PCP - General Family Medicine 09/22/22 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 Start Date End Date Norma Pandey MD [address] [place] [address] PCP - Medical [employer] 07/16/19 05/16/99 Norma Pandey MD [address] [place] [address] PCP - General Family Medicine 09/22/22 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 Start Date End Date Norma Pandey MD [address] [place] [address] PCP - Medical [employer] 07/16/19 05/16/99 Norma Pandey MD [address] [place] [address] PCP - General Family Medicine 09/22/22 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 Start Date End Date Norma Pandey MD [address] [place] [address] PCP - Medical [employer] 07/16/19 05/16/99 Norma Pandey MD [address] [place] [address] PCP - General Family Medicine 09/22/22 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 Start Date End Date Norma Pandey MD [address] [place] [address] PCP - Medical [employer] 07/16/19 05/16/99 Norma Pandey MD [address] [place] [address] PCP - General Family Medicine 09/22/22 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 Start Date End Date Norma Pandey MD [address] [place] [address] PCP - Medical [employer] 07/16/19 05/16/99 Norma Pandey MD [address] [place] [address] PCP - General Family Medicine 09/22/22 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 Start Date End Date Norma Pandey MD [address] [place] [address] PCP - Medical [employer] 07/16/19 05/16/99 Norma Pandey MD [address] [place] [address] PCP - General Family Medicine 09/22/22 Goals (unrecognized section and content) Goals may be documented in a n alternate section Source Comments (unrecognize d section and content) In the event this informatio n is protected by the Federal Confidentiality of Alcohol and Drug Abuse Patient Records regulations: The Federal rules restrict any use of the information to criminally investigate or prosecute any alcohol or drug abuse patient.[facility] the event this information is protected by the Federal Confidentiality of Alcohol and Drug Abuse Patient Records regulations: The Federal rules restrict any use of the information to criminally investigate or prosecute any alcohol or drug abuse patient.[facility] the event this information is protected by the Federal Confidentiality of Alcohol and Drug Abuse Patient Records regulations: The Federal rules restrict any use of the information to criminally investigate or prosecute any alcohol or drug abuse patient.[facility] the event this information is protected by the Federal Confidentiality of Alcohol and Drug Abuse Patient Records regulations: The Federal rules restrict any use of the information to criminally investigate or prosecute any alcohol or drug abuse patient.[facility] FOR RECORDS PERTAINING TO PATIENTS WHO ARE OR HAVE BEEN ENROLLED IN A CHEMICAL DEPENDENCY/SUBSTANCEABUSE PROGRAM, SOME INFORMATION MAY BE OMITTED. This clinical summary was aggregated from multiple sources. Caution should be exercised in using it in the provision of clinical care. This summary normalizes information from multiple sources, and as a consequence, information in this document may materially change the coding, format and clinical context of patient data. In addition, data may be omitted in some cases. CLINICAL DECISIONS SHOULD BE BASED ON THE PRIMARY CLINICAL RECORDS. [facility] [employer] [facility]. provides no warranty or guarantee of the accuracy or completeness of information in this document.
== END 2024-07-27 16:21 | disposition home or self-care (01) ==
LOC: MAMMO 16:20
PROVIDERS: PCP Family Medicine; Visit Provider Student in an Organized Health Care Education/Training Program
DX: Z12.31 Encounter for screening mammogram for malignant neoplasm of breast (principal); Z80.3 Family history of malignant neoplasm of breast; Z80.0 Family history of malignant neoplasm of digestive organs; Z80.8 Family history of malignant neoplasm of other organs or systems; R92.8 Other abnormal and inconclusive findings on diagnostic imaging of breast
CPT/HCPCS: 77063; 77067